=== PATIENT | female | born 1945 | race Caucasian/White ===

== ENCOUNTER 2017-06-19 22:48 | Inpatient (IN) | payer MEDICARE, OTHER ==
[2017-06-19 23:26] LABS: #Basophils 0.1 thou/uL (0.0-0.2); #Eosinphils 0.3 thou/uL (0.0-0.7); #Lymphocytes 1.2 thou/uL (1.20-3.40); #Monocytes 0.8 thou/uL (0.11-0.59); #Neutrophils 7.9 thou/uL (1.40-6.50); %Basophils 0.8 % (0.0-1.0); %Eosinophils 2.6 % (0.0-10.0); %Lymphocytes 11.8 % (21.0-51.0); Hematocrit 38.2 % (36.0-47.0); Mean Platelet Volume 8.5 fL (7.4-10.4); Red Blood Cell (RBC) Count 4.04 mill/uL (4.20-5.40); White Blood Cell (WBC) Count 10.2 thou/uL (4.8-10.8)
--- NOTE | 2017-06-19 23:45 | RAD ---
CHEST ONE VIEW: History: Dyspnea. Comparison: 02-02-14 FINDINGS: Heart size is enlarged. No focal airspace consolidation, pneumothorax, or effusion. Scarring or atele ctasis is present in the lingula. IMPRESSION: Cardiomegaly. Otherwise no acute intrathoracic abnormalities. POS: [facility]
[2017-06-19 23:52] LABS: ALT (SGPT) 9 U/L (8-55); AST (SGOT) 16 U/L (5-34); Alkaline Phosphatase 167 U/L (40-150); Anion Gap 13 mmol/L (10-20); BUN (Urea Nitrogen) 23 mg/dL (9.8-20.1); Bilirubin, Total 1.3 mg/dL (0.2-1.2); CK (CPK) 35 U/L (29-168); Calc. Creatinine Clearance 0 mL/min (70-130); Calcium 9.6 mg/dL (7.8-10.44); Carbon Dioxide 24 mmol/L (23-31); Chloride 107 mmol/L (98-107); Estimated GFR-MDRD 35; Globulin 2.9 g/dL (2.4-3.5)
[2017-06-19 23:56] LABS: Troponin I 0.029 ng/mL (< 0.028)
[2017-06-19 23:59] LABS: Digoxin Less than 0.15 ng/mL (0.8-2.0)
[2017-06-20] MEDS ORDERED: Diltiazem HCl 125 MG, Admixture Fee 1 EACH in Sodium Chloride 0.9% 100 ML SLOW IVP SCH (00:45)
--- NOTE | 2017-06-20 01:56 | PDOC.EVN ---
Event Note - Event Note Event Note: [id number] H&P Dictated 1. AFIB 2. Chf Exacerbation 3. htn 4. CKD plan; see orders
[2017-06-20] MEDS ORDERED: HYDROcodone/Acetaminophen 5/325 mg Tablet PO PRN (01:57)
[2017-06-20] MEDS ORDERED: Ondansetron HCl/PF 4 MG/2 ML Vial IVP PRN (01:57)
[2017-06-20 02:33] LABS: Troponin I 0.033 ng/mL (< 0.028)
[2017-06-20 03:58] VITALS: BMI 27.8
[2017-06-20] MEDS: Benzonatate 100 MG CAP PO PRN ×2 (05:23→17:47)
[2017-06-20] MEDS: Furosemide 40 MG/4 ML VIAL SLOW IVP SCH ×2 (05:23→14:14)
[2017-06-20 05:39] LABS: #Basophils 0.1 thou/uL (0.0-0.2); #Eosinphils 0.2 thou/uL (0.0-0.7); #Lymphocytes 1.5 thou/uL (1.20-3.40); #Monocytes 0.7 thou/uL (0.11-0.59); #Neutrophils 6.4 thou/uL (1.40-6.50); %Basophils 0.8 % (0.0-1.0); %Eosinophils 2.7 % (0.0-10.0); %Lymphocytes 16.4 % (21.0-51.0); %Monocytes 8.2 % (0.0-10.0); Hematocrit 34.9 % (36.0-47.0); Mean Platelet Volume 8.8 fL (7.4-10.4); Red Blood Cell (RBC) Count 3.69 mill/uL (4.20-5.40)
[2017-06-20 05:57] LABS: ALT (SGPT) 9 U/L (8-55); AST (SGOT) 14 U/L (5-34); Alkaline Phosphatase 142 U/L (40-150); Anion Gap 12 mmol/L (10-20); BUN (Urea Nitrogen) 24 mg/dL (9.8-20.1); Bilirubin, Total 0.9 mg/dL (0.2-1.2); Calc. Creatinine Clearance 39 mL/min (70-130); Calcium 9.2 mg/dL (7.8-10.44); Carbon Dioxide 23 mmol/L (23-31); Chloride 109 mmol/L (98-107); Estimated GFR-MDRD 39; Globulin 2.8 g/dL (2.4-3.5); Protein, Total 6.6 g/dL (6.0-8.3)
--- NOTE | 2017-06-20 06:27 | HP ---
DATE OF ADMISSION: 06/19/2017 CHIEF COMPLAINT: Bilateral leg swelling and abdominal swelling and dyspnea. HISTORY OF PRESENT ILLNESS: The patient is a 72-year-old female who started having bilateral worseni ng abdominal swelling for the past last one week. The patient started having dyspnea also, she had s ome chest pain and congestion. The patient complains of chest tightness intermittently and palpitati ons. Symptoms persisted for the past 1 week. Today the dyspnea got worse, dyspnea continued with mi nimal mobilization. The patient said she has to have 2 pillows in the night time to sleep, complains of bilateral leg swelling, complains of chest pain also, spasm, intermittent, mild in intensity, has palpitations. Denies any cough, denies sputum production. Denies any nausea, denies any vomiting. Complains of bilateral lower extremity swelling. Denies any headache. Denies any dizziness. PAST MEDICAL HISTORY: Coronary artery disease, atrial flutter, COPD, hyperlipidemia, hypertension, C KD. PAST SURGICAL HISTORY: Cardiac catheterization, hysterectomy. SOCIAL HISTORY: Denies smoking, denies alcohol use and drugs. FAMILY HISTORY: Denies any heart problems. MEDICATIONS: Reviewed. REVIEW OF SYSTEMS: CONSTITUTIONAL: Denies any fever, denies any chills. EYES: PERRLA . . NECK: Denies any neck pain. CARDIOVASCULAR: Positive for chest pain. Positive for palpitations. RESPIRATORY: Positive for dyspnea, cough, and sputum production. CRANIAL NERVE SYSTEM: Denies syncope, denies stiffness. PSYCHIATRIC: Denies anxiety. MUSCULOSKELETAL: Positive for bilateral lower extremities swelling. INTEGUMENTARY: Denies any rash. All other systems are reviewed and are negative. PHYSICAL EXAMINATION: VITAL SIGNS: At the time of H&P performed blood pressure 88/61, heart rate 78, pulse ox 96%. GENERAL: The patient appears tired. ENT: Ears and nose patent. Nose normal. Ears normal. Teeth intact. Tongue is moist. NECK: Supple, no JVD. CARDIOVASCULAR: S1, S2 present. Irregular rate and rhythm. No murmurs, no rubs, no gallops. LUNGS: No wheezing, no rhonchi. Diminished at the bases. GASTROINTESTINAL: Abdomen is soft, distended, no guarding, no masses, rebound. EXTREMITIES: 2+ pitting edema present. NEUROLOGIC: Cranial nerves intact. Follows commands. Strength intact, sensory intact. PSYCHIATRIC: Mood appropriate at this time. INTEGUMENTARY: Positive for chronic skin changes. LABORATORY: Labs at the time of H&P performed; white count 10.2, hemoglobin 11.8, platelet count is 218. BMP showed sodium 139, potassium 4.7, chloride 107, CO2 24, BUN 26, creatinine 1.46, troponin 0 .029. BNP 1339. TSH 4.17. ASSESSMENT AND PLAN: The patient is 72 years old female. 1. Atrial fibrillation with rapid ventricular response. The patient came to the ER with atrial fib rillation, rapid ventricular response. Heart rate initially was 130s. The heart rate improved at th is time. Currently only on 2.5 mg Cardizem drip. The patient was treated with Cardizem IV push in t he ER. We will go ahead and wean off the Cardizem drip as heart rate is controlled and we will . We will monitor the patient closely. 2. Acute congestive heart failure exacerbation, possible systolic. Plan to check 2D echo. Plan to check cardiac enzymes. Plan to start Lasix as blood pressure improves with IV b.i.d. 3. History of chronic obstructive pulmonary disease. Continue breathing treatments. 4. History of hypertension. Blood pressure is on the low side, we will hold blood pressure medicati ons. 5. History of coronary artery disease. Continue aspirin. 6. History of atrial flutter, continue Xarelto daily. The case was discussed in detail with the patient. CODE STATUS: Patient is full code.
[2017-06-20] MEDS: Famotidine 20 MG TAB PO SCH ×2 (09:11→20:45)
[2017-06-20 12:01] LABS: Troponin I 0.041 ng/mL (< 0.028)
[2017-06-20] MEDS ORDERED: guaiFENesin/Codeine Phosphate 200 mg/20 mg 10 ml UD Cup PO PRN (13:17)
[2017-06-20] MEDS ORDERED: guaiFENesin/Codeine Phosphate 200 mg/20 mg 10 ml UD Cup PO SCH (13:30)
[2017-06-20] MEDS ORDERED: Metolazone 5 MG TAB PO SCH (14:45)
[2017-06-20] MEDS ORDERED: Digoxin 0.5 MG/2 ML AMP SLOW IVP SCH (14:45)
[2017-06-20] MEDS ORDERED: diphenhydrAMINE 25 MG CAP PO PRN (16:23)
[2017-06-20] MEDS ORDERED: Potassium Chloride 20 MEQ TAB PO SCH (17:00)
--- NOTE | 2017-06-20 17:35 | CON ---
DATE OF CONSULTATION: 06/20/2017 TYPE OF CONSULTATION: Cardiology Consultation. REASON FOR CONSULTATION: Congestive heart failure, diastolic, acute on chronic; atrial fibrillation, pulmonary hypertension, and coronary artery disease. HISTORY OF PRESENT ILLNESS: Ms. Pratima Samson is a pleasant 72-year-old patient of Dr. João Cano . The patient has been having increasing amounts of lower extremity swelling and abdominal swelling in the last few weeks, finally worsened to the point where she came here to the emergency room due to severe shortness of breath. She has received diuretics with a modest result. The patient is not having chest pain, but she is very short of breath and very edematous. PAST MEDICAL HISTORY: What appears to pulmonary hypertension. She is being treated for that. She a lso has a history of diastolic heart failure and atrial fibrillation. She has coronary artery diseas e. She underwent heart catheterization relatively recently by Dr. Cano, aortic valve was crossed, it was told that she has only mild aortic stenosis and previous coronary stents, but no other stentin g was indicated per the family's report. The patient's main problem was progressive difficulty breathing. MEDICATIONS: At home included, 1. Metformin. 2. Simvastatin. 3. Insulin. 4. Amaryl. 5. Potassium. 6. Losartan. 7. Digoxin 0.125 mg daily. 8. Carvedilol 6.25 mg twice daily. 9. Aspirin. 10. Torsemide 20 mg a day. 11. Xarelto 15 mg a day. ALLERGIES: SULFA. REVIEW OF SYSTEMS: Constitutional: She has been gaining some weight, but appears to be fluid. Visi on: No changes. Hearing: No changes. Pulmonary: Positive for shortness of breath and cough. Car diac: Positive for shortness of breath. Negative for angina. Gastrointestinal: No nausea, vomitin g, or diarrhea, but she does have abdominal distention. Extremities: She has been noticing increasi ng amounts of swelling of her lower extremities. Psychiatric: No unusual depression or anxiety. PHYSICAL EXAMINATION: GENERAL: This is a very pleasant 72-year-old woman resting comfortably in no distress. VITAL SIGNS: Blood pressure 139/72, pulse is 120, it is irregularly irregular. EYES: Sclerae nonicteric. Mouth mucous membranes moist. NECK: Supple, no lymphadenopathy. LUNGS: Clear anteriorly and laterally. CARDIOVASCULAR: Irregularly irregular. There is a 2-3/6 apical systolic murmur. There is no diasto lic murmur, no S3. ABDOMEN: Soft, nontender. She is somewhat distended. EXTREMITIES: Moderate to severe peripheral edema. SKIN: Warm and dry. PSYCHIATRIC: Mood and affect normal. NEUROLOGIC: Grossly normal. Moves all extremities. PERTINENT LABORATORY AND X-RAY FINDINGS: Hemoglobin is 11.1, hematocrit 34.9, creatinine is 1.34, it was 1.46 on admission. Troponin 0.041. BNP 1339. EKG reveals atrial fibrillation with a rapid carolee tricular response, otherwise no acute changes. The echocardiogram revealed an ejection fraction of 55-60%, moderate pericardial effusion, but no ya ponade. Mild to moderate aortic stenosis, moderate tricuspid insufficiency, severely elevated pulmon isidoro artery pressure, mild mitral regurgitation. ASSESSMENT: 1. Congestive heart failure, diastolic, acute on chronic, currently decompensated. 2. Pulmonary hypertension. 3. Atrial fibrillation, likely to be persistent or chronic with a rapid ventricular response. She i s on Xarelto already. 4. Coronary artery disease, stable. PLAN: 1. We will increase diuretics. She is extremely volume overloaded. 2. Watch her renal function. 3. Give an extra dose of digoxin IV. 4. Resume carvedilol to help with rate control. 5. Continue Xarelto. 6. He also has a nodule in the left lateral breast area, needs to be evaluated. She was instructed to tell the hospitalist doctors about that when they come by in rounds that that needs to be evaluate d.
[2017-06-20] MEDS: Rivaroxaban 10 MG TAB PO SCH (17:37)
--- NOTE | 2017-06-20 17:50 | PDOC.EVN ---
Event Note - Event Note Event Note: pt seen and evaluated agree with current plan
[2017-06-20] MEDS ORDERED: Dextrose 50% Abboject 50 ML SYRINGE SLOW IVP PRN (18:25)
[2017-06-20] MEDS ORDERED: Dextrose 5% in Water 1,000 ML IV PRN (18:25)
[2017-06-20] MEDS: Insulin Detemir 100 UNITS/ML 8 UNITS in Pre-Filled Syringe SC SCH (20:44)
[2017-06-20] MEDS: Atorvastatin Calcium 10 MG TAB PO SCH (20:45)
[2017-06-21 05:40] LABS: Anion Gap 11 mmol/L (10-20); BUN (Urea Nitrogen) 25 mg/dL (9.8-20.1); Calc. Creatinine Clearance 39 mL/min (70-130); Calcium 9.2 mg/dL (7.8-10.44); Carbon Dioxide 25 mmol/L (23-31); Chloride 106 mmol/L (98-107); Estimated GFR-MDRD 39
[2017-06-21] MEDS: Furosemide 40 MG/4 ML VIAL SLOW IVP SCH ×2 (06:10→13:24)
[2017-06-21] MEDS: Aspirin 81 mg Enteric Coated Tablet PO SCH (08:17)
[2017-06-21] MEDS: Famotidine 20 MG TAB PO SCH ×2 (08:17→21:10)
[2017-06-21] MEDS: Digoxin 0.125 MG TAB PO SCH (08:18)
[2017-06-21] MEDS ORDERED: Carvedilol 6.25 MG TAB PO SCH (09:00)
[2017-06-21] MEDS: Acetaminophen 325 MG TAB PO PRN (09:54)
[2017-06-21] MEDS: HumaLOG 300 UNITS/3 ML VIAL SC PRN ×3 (11:23→21:14)
[2017-06-21] MEDS: ALPRAZolam 0.5 MG TAB PO PRN (13:33)
--- NOTE | 2017-06-21 14:26 | PDOC.PN ---
- Subjective Encounter Start Date: 06/21/17 Encounter Start Time: 14:24 Patient seen and examined. No new complaints. No overnight events lt breast nodule which is tender - Objective MAR Reviewed: Yes Vital Signs & Weight: Vital Signs (12 hours) Temp Pulse Resp BP BP Pulse Ox 06/21/17 11:35 97.7 F 89 16 138/73 95 06/21/17 08:18 107 H 163/67 H 06/21/17 08:05 98.4 F 107 H 16 97 06/21/17 07:38 98.4 F 107 H 16 163/67 H 97 06/21/17 04:23 97.4 F L 84 14 98/56 L 97 Weight Weight 142 lb 6.4 oz I&O: 06/20/17 06/21/17 06/22/17 06:59 06:59 06:59 Intake Total 900 Balance 900 Result Diagrams: 06/20/17 05:12 06/21/17 05:11 Additional Labs: Accuchecks 06/21/17 06/21/17 06/20/17 10:54 05:43 20:43 POC Glucose 289 H 116 H 210 H 06/20/17 06/20/17 16:28 11:15 POC Glucose 201 H 212 H Phys Exam - Physical Examination Constitutional: NAD HEENT: PERRLA Neck: no nodes Respiratory: no rales Cardiovascular: no significant murmur, irregular Gastrointestinal: non-tender Musculoskeletal: pulses present, edema present Neurological: moves all 4 limbs Psychiatric: A&O x 3 Dx/Plan (1) Acute on chronic diastolic CHF (congestive heart failure) Code(s): I50.33 - ACUTE ON CHRONIC DIASTOLIC (CONGESTIVE) HEART FAILURE Status : Acute (2) HTN (hypertension) Code(s): I10 - ESSENTIAL (PRIMARY) HYPERTENSION Status: Acute (3) CAD (coronary artery disease) Code(s): I25.10 - ATHSCL HEART DISEASE OF [place] CORONARY ARTERY W/O ANG PCTRS Status: Acute (4) Atrial fibrillation Code(s): I48.91 - UNSPECIFIED ATRIAL FIBRILLATION Status: Acute - Plan * breast mass- f/u us of breast * pedal edema- cont diuretics * f/u card plan
[2017-06-21] MEDS: Rivaroxaban 10 MG TAB PO SCH (17:16)
[2017-06-21] MEDS: Carvedilol 6.25 MG TAB PO SCH (17:17)
[2017-06-21] MEDS: Atorvastatin Calcium 10 MG TAB PO SCH (21:10)
[2017-06-21] MEDS: Insulin Detemir 100 UNITS/ML 8 UNITS in Pre-Filled Syringe SC SCH (21:13)
[2017-06-22] MEDS: ALPRAZolam 0.5 MG TAB PO PRN ×2 (00:38→22:46)
[2017-06-22 05:59] LABS: Anion Gap 12 mmol/L (10-20); BUN (Urea Nitrogen) 32 mg/dL (9.8-20.1); Calc. Creatinine Clearance 40 mL/min (70-130); Carbon Dioxide 26 mmol/L (23-31); Chloride 102 mmol/L (98-107); Estimated GFR-MDRD 34
[2017-06-22] MEDS: Furosemide 40 MG/4 ML VIAL SLOW IVP SCH ×2 (06:24→13:19)
[2017-06-22] MEDS: HumaLOG 300 UNITS/3 ML VIAL SC PRN ×3 (06:24→21:51)
[2017-06-22] MEDS: Aspirin 81 mg Enteric Coated Tablet PO SCH (09:39)
[2017-06-22] MEDS: Carvedilol 6.25 MG TAB PO SCH ×3 (09:39→20:12)
[2017-06-22] MEDS: Digoxin 0.125 MG TAB PO SCH (09:40)
[2017-06-22] MEDS: Famotidine 20 MG TAB PO SCH ×2 (09:40→20:12)
--- NOTE | 2017-06-22 14:57 | PDOC.PN ---
- Subjective Encounter Start Date: 06/22/17 Encounter Start Time: 14:55 Patient seen and examined. No new complaints. No overnight events - Objective MAR Reviewed: Yes Vital Signs & Weight: Vital Signs (12 hours) Temp Pulse Resp BP BP Pulse Ox 06/22/17 11:35 97.5 F L 91 18 107/56 L 97 06/22/17 09:40 85 06/22/17 09:39 149/67 H 06/22/17 08:00 98.2 F 85 20 94 L 06/22/17 07:51 98.2 F 85 20 149/67 H 94 L 06/22/17 04:48 97.4 F L 87 24 H 110/59 L 95 Weight Weight 166 lb 4.8 oz I&O: 06/21/17 06/22/17 06/23/17 06:59 06:59 06:59 Intake Total 900 264 Balance 900 264 Result Diagrams: 06/20/17 05:12 06/22/17 05:13 Additional Labs: Accuchecks 06/22/17 06/22/17 06/21/17 10:37 06:22 21:13 POC Glucose 231 H 201 H 317 H 06/21/17 17:03 POC Glucose 243 H Phys Exam - Physical Examination Constitutional: NAD HEENT: PERRLA Neck: no JVD Respiratory: no wheezing Cardiovascular: no significant murmur Gastrointestinal: non-tender Musculoskeletal: edema present Neurological: moves all 4 limbs Psychiatric: A&O x 3 Dx/Plan (1) Acute on chronic diastolic CHF (congestive heart failure) Code(s): I50.33 - ACUTE ON CHRONIC DIASTOLIC (CONGESTIVE) HEART FAILURE Status : Acute (2) HTN (hypertension) Code(s): I10 - ESSENTIAL (PRIMARY) HYPERTENSION Status: Acute (3) CAD (coronary artery disease) Code(s): I25.10 - ATHSCL HEART DISEASE OF [place] CORONARY ARTERY W/O ANG PCTRS Status: Acute (4) Atrial fibrillation Code(s): I48.91 - UNSPECIFIED ATRIAL FIBRILLATION Status: Acute - Plan * breast mass- out pt work up with mammogram followed by breast us * pedal edema- cont diuretics * f/u card plan
[2017-06-22] MEDS: Rivaroxaban 10 MG TAB PO SCH (16:13)
[2017-06-22] MEDS: Atorvastatin Calcium 10 MG TAB PO SCH (20:12)
[2017-06-22] MEDS: Acetaminophen 325 MG TAB PO PRN (20:34)
[2017-06-22] MEDS: Insulin Detemir 100 UNITS/ML 8 UNITS in Pre-Filled Syringe SC SCH (21:50)
[2017-06-23] MEDS: HumaLOG 300 UNITS/3 ML VIAL SC PRN ×4 (05:28→20:51)
[2017-06-23 06:01] LABS: Anion Gap 14 mmol/L (10-20); BUN (Urea Nitrogen) 35 mg/dL (9.8-20.1); Calc. Creatinine Clearance 33 mL/min (70-130); Calcium 9.1 mg/dL (7.8-10.44); Carbon Dioxide 26 mmol/L (23-31); Chloride 99 mmol/L (98-107); Estimated GFR-MDRD 28
[2017-06-23] MEDS: Digoxin 0.125 MG TAB PO SCH (08:20)
[2017-06-23] MEDS: Aspirin 81 mg Enteric Coated Tablet PO SCH (08:21)
[2017-06-23] MEDS: Acetaminophen 325 MG TAB PO PRN ×2 (08:21→20:55)
[2017-06-23] MEDS: Furosemide 40 MG TAB PO SCH ×2 (08:21→15:46)
[2017-06-23] MEDS: Famotidine 20 MG TAB PO SCH ×2 (08:21→11:56)
[2017-06-23] MEDS: Carvedilol 6.25 MG TAB PO SCH (08:21)
--- NOTE | 2017-06-23 09:22 | PRG ---
DATE OF SERVICE: 06/23/2017 Ms. Samson is not feeling well today. PHYSICAL EXAMINATION: VITAL SIGNS: Blood pressures was low as 106/60 earlier, pulse 56. LUNGS: Clear. CARDIAC: Irregular, irregular. ABDOMEN: Soft, nontender. EXTREMITIES: No edema. ASSESSMENT: 1. Diastolic heart failure, chronic. 2. Atrial fibrillation. 3. Relatively hypotensive today. PLAN: She was ordered to take some diltiazem yesterday, but then that was stopped. She was ordered for carvedilol today, but that was stopped due to hypotension. We will need to watch her at least an other day. It is unclear whether she diuresed much over the weekend, there is not much urine output recorded and the weights do not seem to be reliable.
[2017-06-23] MEDS: Metolazone 2.5 MG TAB PO SCH (15:46)
--- NOTE | 2017-06-23 16:59 | PDOC.PN ---
- Subjective Encounter Start Date: 06/23/17 Encounter Start Time: 16:58 feels more weak no n/v no f/c - Objective MAR Reviewed: Yes Vital Signs & Weight: Vital Signs (12 hours) Temp Pulse Resp BP Pulse Ox 06/23/17 15:33 97.8 F 88 16 99/53 L 99 06/23/17 11:33 97.4 F L 60 16 120/58 L 91 L 06/23/17 08:00 98.4 F 56 L 16 06/23/17 07:33 98.4 F 56 L 16 112/56 L 93 L Weight Weight 163 lb 6.4 oz I&O: 06/22/17 06/23/17 06/24/17 06:59 06:59 06:59 Intake Total 264 620 Balance 264 620 Result Diagrams: 06/20/17 05:12 06/23/17 05:31 Additional Labs: Accuchecks 06/23/17 06/23/17 06/22/17 10:53 05:28 21:43 POC Glucose 406 H 229 H 405 H 06/22/17 17:00 POC Glucose 516 H Phys Exam - Physical Examination Constitutional: NAD HEENT: PERRLA Neck: no JVD Respiratory: no wheezing Cardiovascular: no significant murmur Gastrointestinal: non-tender Musculoskeletal: edema present Neurological: moves all 4 limbs Psychiatric: A&O x 3 Dx/Plan (1) Acute on chronic diastolic CHF (congestive heart failure) Code(s): I50.33 - ACUTE ON CHRONIC DIASTOLIC (CONGESTIVE) HEART FAILURE Status : Acute (2) HTN (hypertension) Code(s): I10 - ESSENTIAL (PRIMARY) HYPERTENSION Status: Acute (3) CAD (coronary artery disease) Code(s): I25.10 - ATHSCL HEART DISEASE OF [place] CORONARY ARTERY W/O ANG PCTRS Status: Acute (4) Atrial fibrillation Code(s): I48.91 - UNSPECIFIED ATRIAL FIBRILLATION Status: Acute - Plan * f/u card plan * cont diuresis
[2017-06-23] MEDS: Rivaroxaban 10 MG TAB PO SCH (18:36)
[2017-06-23] MEDS: Atorvastatin Calcium 10 MG TAB PO SCH (20:47)
[2017-06-23] MEDS: Insulin Detemir 100 UNITS/ML 15 UNITS in Pre-Filled Syringe SC SCH (21:32)
[2017-06-24 05:34] LABS: #Eosinphils 0.4 thou/uL (0.0-0.7); #Lymphocytes 0.9 thou/uL (1.20-3.40); #Monocytes 0.7 thou/uL (0.11-0.59); #Neutrophils 4.9 thou/uL (1.40-6.50); %Basophils 0.4 % (0.0-1.0); %Eosinophils 5.9 % (0.0-10.0); %Lymphocytes 13.1 % (21.0-51.0); Hematocrit 34.3 % (36.0-47.0); Mean Platelet Volume 9.4 fL (7.4-10.4); Red Blood Cell (RBC) Count 3.67 mill/uL (4.20-5.40)
[2017-06-24 05:57] LABS: Anion Gap 15 mmol/L (10-20); BUN (Urea Nitrogen) 35 mg/dL (9.8-20.1); BUN/Creatinine Ratio 20.11; Calc. Creatinine Clearance 35 mL/min (70-130); Calcium 9.2 mg/dL (7.8-10.44); Carbon Dioxide 25 mmol/L (23-31); Chloride 100 mmol/L (98-107); Estimated GFR-MDRD 29; Phosphorus 4.2 mg/dL (2.3-4.7)
[2017-06-24] MEDS: HumaLOG 300 UNITS/3 ML VIAL SC PRN ×3 (06:19→21:46)
[2017-06-24] MEDS: Acetaminophen 325 MG TAB PO PRN (06:50)
[2017-06-24] MEDS: Metolazone 2.5 MG TAB PO SCH (08:51)
[2017-06-24] MEDS: Famotidine 20 MG TAB PO SCH (08:51)
[2017-06-24] MEDS: Digoxin 0.125 MG TAB PO SCH (08:51)
[2017-06-24] MEDS: Aspirin 81 mg Enteric Coated Tablet PO SCH (08:51)
[2017-06-24] MEDS: Furosemide 40 MG TAB PO SCH ×2 (08:51→14:28)
[2017-06-24] MEDS: Glimepiride 2 MG TAB PO SCH (08:51)
[2017-06-24] MEDS ORDERED: Furosemide 40 MG/4 ML VIAL SLOW IVP SCH ×3 (09:30→16:30)
--- NOTE | 2017-06-24 10:07 | PRG ---
DATE OF SERVICE: 06/24/2017 SUBJECTIVE: Ms. Samson is doing about the same, not diuresing much. PHYSICAL EXAMINATION: VITAL SIGNS: Blood pressure 130/60, pulse 80. LUNGS: Clear. CARDIAC: Irregular, irregular. ABDOMEN: Soft and nontender. ASSESSMENT: 1. Pulmonary hypertension appears to be primary problem with severe pulmonary hypertension and right heart overload, chronic. 2. Mild to moderate aortic stenosis. 3. Coronary artery disease. 4. Volume overload. PLAN: 1. Give intravenous Lasix. 2. Resume pulmonary hypertension medications tonight. 3. Probably go home tomorrow on tomorrow and discussed prognosis with the patient and .
--- NOTE | 2017-06-24 10:44 | PDOC.PN ---
- Subjective Encounter Start Date: 06/24/17 Encounter Start Time: 10:43 Patient seen and examined. No new complaints. No overnight events - Objective MAR Reviewed: Yes Vital Signs & Weight: Vital Signs (12 hours) Temp Pulse Resp BP Pulse Ox 06/24/17 08:51 81 06/24/17 08:00 98.3 F 81 16 06/24/17 07:33 98.3 F 81 16 130/61 94 L 06/24/17 03:55 97.7 F 89 20 123/57 L 92 L 06/24/17 00:13 96 06/23/17 23:42 97.6 F 76 16 132/59 L 98 Weight Weight 151 lb 1.6 oz I&O: 06/23/17 06/24/17 06/25/17 06:59 06:59 06:59 Intake Total 620 550 Output Total 0 Balance 620 550 Result Diagrams: 06/24/17 05:18 06/24/17 05:18 Additional Labs: Accuchecks 06/24/17 06/23/17 06/23/17 06:19 20:51 16:49 POC Glucose 224 H 338 H 337 H 06/23/17 10:53 POC Glucose 406 H Phys Exam - Physical Examination Constitutional: NAD HEENT: PERRLA Neck: no JVD Respiratory: no wheezing Cardiovascular: irregular Gastrointestinal: soft Musculoskeletal: edema present Neurological: moves all 4 limbs Psychiatric: A&O x 3 Dx/Plan (1) Acute on chronic diastolic CHF (congestive heart failure) Code(s): I50.33 - ACUTE ON CHRONIC DIASTOLIC (CONGESTIVE) HEART FAILURE Status : Acute (2) HTN (hypertension) Code(s): I10 - ESSENTIAL (PRIMARY) HYPERTENSION Status: Acute (3) CAD (coronary artery disease) Code(s): I25.10 - ATHSCL HEART DISEASE OF [place] CORONARY ARTERY W/O ANG PCTRS Status: Acute (4) Atrial fibrillation Code(s): I48.91 - UNSPECIFIED ATRIAL FIBRILLATION Status: Acute - Plan * start iv lasix * start meds for pulm htn * card input appreciated * doing well with pt
[2017-06-24] MEDS: Insulin Detemir 100 UNITS/ML 15 UNITS in Pre-Filled Syringe SC SCH ×2 (10:53→21:08)
[2017-06-24] MEDS ORDERED: Nitroglycerin 2% Ointment 1 INCH/1 GM Packet TOP SCH (16:00)
[2017-06-24] MEDS: Potassium Chloride 20 MEQ TAB PO SCH (16:19)
[2017-06-24] MEDS: Rivaroxaban 10 MG TAB PO SCH (16:19)
[2017-06-24] MEDS ORDERED: cloNIDine 0.1 MG TAB PO SCH (17:30)
[2017-06-24] MEDS ORDERED: cloNIDine 0.1 MG TAB PO PRN (18:34)
[2017-06-24] MEDS: Atorvastatin Calcium 10 MG TAB PO SCH (21:08)
[2017-06-24] MEDS: TADALAFIL 20MG PO SCH ×2 (22:10→23:48)
[2017-06-24] MEDS: MACITENTAN (OPSUMIT) 10 MG TAB PO SCH ×2 (22:10→23:48)
[2017-06-25 05:42] LABS: Anion Gap 12 mmol/L (10-20); BUN (Urea Nitrogen) 31 mg/dL (9.8-20.1); Calc. Creatinine Clearance 38 mL/min (70-130); Calcium 9.7 mg/dL (7.8-10.44); Carbon Dioxide 35 mmol/L (23-31); Chloride 96 mmol/L (98-107); Estimated GFR-MDRD 34
[2017-06-25] MEDS ORDERED: Losartan Potassium 25 MG TAB PO SCH (09:00)
[2017-06-25] MEDS: Potassium Chloride 20 MEQ TAB PO SCH (09:40)
[2017-06-25] MEDS: Glimepiride 2 MG TAB PO SCH (09:40)
[2017-06-25] MEDS: Metolazone 2.5 MG TAB PO SCH (09:41)
[2017-06-25] MEDS: Digoxin 0.125 MG TAB PO SCH (09:41)
[2017-06-25] MEDS: Furosemide 40 MG TAB PO SCH (09:42)
[2017-06-25] MEDS: Insulin Detemir 100 UNITS/ML 15 UNITS in Pre-Filled Syringe SC SCH (09:42)
[2017-06-25] MEDS: Aspirin 81 mg Enteric Coated Tablet PO SCH (09:44)
[2017-06-25] MEDS ORDERED: Potassium Chloride 20 MEQ TAB PO SCH (10:30)
[2017-06-25 11:46] VITALS: BP 120/55; TEMP 97.8
--- NOTE | 2017-06-25 12:30 | PRG ---
DATE OF SERVICE: 06/25/2017 SUBJECTIVE: Ms. Samson feels better today. She had an excellent response to the intravenous Lasix last night. Her blood pressure was high, but now back to the normal range after good diuresis. She has no chest pain. PHYSICAL EXAMINATION: VITAL SIGNS: Blood pressure 133/63, pulse 70, it is irregular. LUNGS: Clear. CARDIAC: Irregularly irregular. ABDOMEN: Soft, nontender. EXTREMITIES: No edema. The creatinine is 1.52 which came in at 1.46. ASSESSMENT: 1. Pulmonary hypertension, which is her primary problem. 2. Coronary artery disease, apparently nonobstructive per the patient's report underwent cardiac cat heterization by Dr. oJão Cano. 3. Mild to moderate aortic stenosis. 4. Stage 3 renal failure, estimated GFR is 34. 5. Hypokalemia after diuretic receiving potassium. PLAN: 1. She is to come on torsemide 20 mg twice a day, which the dose has been increased. 2. Potassium 10 mEq once a day and she did come in potassium of 4.7 before the diuresis. 3. Losartan 100 mg as before, same pulmonary hypertension medicine. 4. Xarelto 15 mg a day. 5. She also has chronic atrial fibrillation. 6. She has a pericardial effusion, but is not hemodynamically significant. The patient will be foll owed up with Dr. João Cano as an outpatient. She also did have a mass palpable in the left lateral area of her breast, I recommended she have a mammography done. I recommend she is follow up with he r primary care physician and to have this mammogram done. 7. She returned under the care of Dr. João Cano, who is her primary store receiver.
--- NOTE | 2017-06-25 12:37 | PDOC.PN ---
- Subjective Encounter Start Date: 06/25/17 Encounter Start Time: 12:36 Patient seen and examined. No new complaints. No overnight events - Objective MAR Reviewed: Yes Vital Signs & Weight: Vital Signs (12 hours) Temp Pulse Resp BP Pulse Ox 06/25/17 11:30 97.8 F 75 18 120/55 L 100 06/25/17 09:41 70 06/25/17 08:00 98.5 F 70 18 06/25/17 07:35 98.5 F 70 18 133/63 98 06/25/17 03:26 98.7 F 72 18 120/56 L 99 06/25/17 01:57 99 Weight Weight 142 lb 5 oz I&O: 06/24/17 06/25/17 06/26/17 06:59 06:59 06:59 Intake Total 550 1630 Output Total 0 4950 Balance 550 -3320 Result Diagrams: 06/24/17 05:18 06/25/17 04:54 Additional Labs: Accuchecks 06/25/17 06/25/17 06/24/17 11:00 05:34 21:04 POC Glucose 208 H 152 H 350 H 06/24/17 06/24/17 16:50 14:33 POC Glucose 153 H 260 H Phys Exam - Physical Examination Constitutional: NAD HEENT: PERRLA Neck: no JVD Respiratory: no wheezing Cardiovascular: no significant murmur Gastrointestinal: non-tender Musculoskeletal: pulses present Neurological: moves all 4 limbs Psychiatric: A&O x 3 Dx/Plan (1) Acute on chronic diastolic CHF (congestive heart failure) Code(s): I50.33 - ACUTE ON CHRONIC DIASTOLIC (CONGESTIVE) HEART FAILURE Status : Acute (2) HTN (hypertension) Code(s): I10 - ESSENTIAL (PRIMARY) HYPERTENSION Status: Acute (3) CAD (coronary artery disease) Code(s): I25.10 - ATHSCL HEART DISEASE OF [place] CORONARY ARTERY W/O ANG PCTRS Status: Acute (4) Atrial fibrillation Code(s): I48.91 - UNSPECIFIED ATRIAL FIBRILLATION Status: Acute - Plan * doing well * torsemide 20 mg bid * out pt f/u with card
--- NOTE | 2017-06-25 13:26 | DIS ---
DATE OF ADMISSION: 06/19/2017 DATE OF DISCHARGE: 06/25/2017 DISCHARGE DIAGNOSES: Bilateral leg swelling secondary to acute on chronic diastolic congestive heart failure with an ejection fraction of 55%; essential primary hypertension; atrial fibrillation, rate controlled and anticoagulated with Xarelto; history of chronic obstructive pulmonary disease; history of hypertension and coronary artery disease. DISCHARGE MEDICATIONS: Include all home medications except for the dose of torsemide has been change d to 20 mg p.o. b.i.d., dose of Cozaar has been changed to 25 mg p.o. daily from 100 mg p.o. daily an d dose of Coreg has been changed to 3.125 p.o. b.i.d. from 6.25 p.o. b.i.d. The rest of the medicatio ns remain the same. DISTRICT DIRECTOR: Dr. Kinsey. BRIEF HOSPITAL COURSE: This is a 72-year-old pleasant lady who came into the hospital with bilateral leg swelling. Please refer to the admitting physician's H&P for further details. Cardiology was co nsulted. The patient was found to be in acute on chronic diastolic congestive heart failure. It was treated initially with IV diuresis. She diuresed well. The edema was resolving slowly. We did the echocardiogram, which showed severe pulmonary hypertension as well. Dr. Kinsey thought that most of the swelling was secondary to the pulmonary hypertension and he restarted the medications for that. The patient is doing much better right now. She is medically stable to be discharged with outpatien t follow up with our double end production grinder. Of note, the patient had a breast mass on the left side, possibly secondary to which came after trauma when she fell is a little tender outpatient mammogram has being advised for that. She is asked to schedule outpatient mammogram and possible breast ultrasound in [facility] if needed, and choose PCP and follow up with them for further optimization of treatment. The pat ient is right now medically stable. Her shortness of breath has resolved. Edema has improved. AFib is under control. She is medically stable to be discharged with outpatient followup with Cardiology . Total time for this discharge took 35 minutes.
[2017-06-25] MEDS ORDERED: Torsemide 20 MG TAB PO SCH (14:00)
[2017-06-25] MEDS ORDERED: Carvedilol 3.125 MG TAB PO SCH (17:00)
[2017-06-26] MEDS ORDERED: Potassium Chloride 20 MEQ TAB PO SCH (08:00)
== END 2017-06-25 13:31 | disposition home or self-care (01) | DRG 291 ==
LOC: ERS 22:48 → 2SE 06-20 00:35
PROVIDERS: ADMIT Internal Medicine; ATTEND Internal Medicine
DX: I13.0 Hypertensive heart and chronic kidney disease with heart failure and stage 1 through stage 4 chronic kidney disease, or unspecified chronic kidney disease (principal); I50.33 Acute on chronic diastolic (congestive) heart failure; I95.9 Hypotension, unspecified; I31.3 Pericardial effusion (noninflammatory); E11.22 Type 2 diabetes mellitus with diabetic chronic kidney disease; I48.92 Unspecified atrial flutter; I48.2 Chronic atrial fibrillation; J44.9 Chronic obstructive pulmonary disease, unspecified; I08.3 Combined rheumatic disorders of mitral, aortic and tricuspid valves; I27.20 Pulmonary hypertension, unspecified; Z90.710 Acquired absence of both cervix and uterus; I25.10 Atherosclerotic heart disease of native coronary artery without angina pectoris; Z79.01 Long term (current) use of anticoagulants; N18.3 Chronic kidney disease, stage 3 (moderate); E87.6 Hypokalemia; N63.20 Unspecified lump in the left breast, unspecified quadrant; Z88.2 Allergy status to sulfonamides; I25.2 Old myocardial infarction; Z79.4 Long term (current) use of insulin
CPT/HCPCS: 36415; 36416; 71010; 80048; 80053; 80069; 80162; 82550; 82553; 83690; 83735; 83880; 84443; 84484; 85025; 93005; 93306; 93798; 96374; 96376; A4216; J1160; J1815; J1940; J7050

== ENCOUNTER 2017-06-29 08:18 | Inpatient (IN) | payer MEDICARE, OTHER ==
[2017-06-29 08:50] LABS: #Basophils 0.1 thou/uL (0.0-0.2); #Lymphocytes 1.5 thou/uL (1.20-3.40); #Monocytes 0.4 thou/uL (0.11-0.59); #Neutrophils 14.5 thou/uL (1.40-6.50); %Basophils 0.5 % (0.0-1.0); %Eosinophils 0.3 % (0.0-10.0); %Lymphocytes 9.2 % (21.0-51.0); %Monocytes 2.3 % (0.0-10.0); %Neutrophils 87.7 % (42.0-75.0); Hemoglobin 13.3 g/dL (12.0-16.0); Mean Corpuscular HGB CONC 30.5 g/dL (32.0-36.0); Platelet Count 281 thou/uL (130-400); RBC Distribution Width 15.3 % (11.5-14.5); White Blood Cell (WBC) Count 16.5 thou/uL (4.8-10.8)
[2017-06-29 09:10] LABS: ALT (SGPT) 14 U/L (8-55); AST (SGOT) 20 U/L (5-34); Albumin 4.1 g/dL (3.4-4.8); Alkaline Phosphatase 120 U/L (40-150); Anion Gap 39 mmol/L (10-20); BUN (Urea Nitrogen) 67 mg/dL (9.8-20.1); Bilirubin, Total 0.8 mg/dL (0.2-1.2); Calc. Creatinine Clearance 0 mL/min (70-130); Calcium 9.6 mg/dL (7.8-10.44); Carbon Dioxide 13 mmol/L (23-31); Chloride 92 mmol/L (98-107); Estimated GFR-MDRD 6; Globulin 3.3 g/dL (2.4-3.5); Glucose 174 mg/dL (83-110); Protein, Total 7.4 g/dL (6.0-8.3); Sodium 137 mmol/L (136-145)
[2017-06-29 09:15] LABS: CKMB 3.6 ng/mL (0-6.6); Troponin I 0.083 ng/mL (< 0.028)
[2017-06-29] MEDS ORDERED: Albuterol Sulfate 2.5 mg/0.5 ml Neb ONE (09:33)
[2017-06-29] MEDS ORDERED: Albuterol Sulfate 2.5 mg/3 ml Neb ONE (09:34)
[2017-06-29] MEDS ORDERED: Dextrose 50% Abboject 50 ML SYRINGE ONE (09:45)
[2017-06-29] MEDS ORDERED: Insulin Regular 300 UNITS/3 ML VIAL ONE (09:45)
[2017-06-29] MEDS ORDERED: Sodium Bicarb 50 MEQ/50 ML Abboject 8.4% SYRINGE ONE (09:45)
[2017-06-29] MEDS ORDERED: Calcium Chloride 1 GM/10 ML Abboject SYRINGE ONE (09:45)
[2017-06-29] MEDS ORDERED: Ondansetron HCl/PF 4 MG/2 ML Vial ONE (09:46)
[2017-06-29 10:13] LABS: Magnesium 2.5 mg/dL (1.6-2.6)
[2017-06-29 10:20] LABS: Lipase 31 U/L (8-78)
[2017-06-29 10:28] LABS: Phosphorus 9.4 mg/dL (2.3-4.7)
[2017-06-29] MEDS ORDERED: Heparin 1,000 UNITS/ML VIAL ONE (11:11)
[2017-06-29] MEDS ORDERED: Piperacillin/Tazobactam 3.375 GM in Sodium Chloride 0.9% 100 ML IVPB SCH (11:15)
[2017-06-29 11:38] LABS: INR-International Normal Ratio 3.2; PTT 55.9 SEC (22.9-36.1); Prothrombin Time 34.4 SEC (12.0-14.7)
[2017-06-29] MEDS ORDERED: Hydrocortisone Sod Succ/PF 100 mg/2 ml Vial ONE (12:09)
[2017-06-29] MEDS ORDERED: Sodium Bicarbonate 150 MEQ in Dextrose 5% in Water 1,000 ML IV SCH ×2 (12:15)
[2017-06-29] MEDS ORDERED: Dextrose 5% in Water 1,000 ML IV PRN (12:23)
[2017-06-29] MEDS ORDERED: Guaifenesin DM 100-10/5 ML UDCUP PO PRN (12:23)
[2017-06-29] MEDS ORDERED: Vancomycin HCl 500 MG in Sodium Chloride 0.9% 100 ML IVPB SCH (12:30)
--- NOTE | 2017-06-29 12:45 | RAD ---
FRONTAL VIEW CHEST: Date: 06/29/17 INDICATION: Dyspnea. FINDINGS: There is prominence of the cardiac silhouette, grossly stable. No new consolidation or effusion. Ther e is no discrete pneumothorax. Vascular calcinations and osseous degenerative change present. IMPRESSION: 1. Stable prominence of cardiac silhouette. 2. No new consolidation. POS: [facility]
[2017-06-29 13:03] LABS: Digoxin 1.53 ng/mL (0.8-2.0)
[2017-06-29 13:04] LABS: Albumin 3.6 g/dL (3.4-4.8); Anion Gap 39 mmol/L (10-20); BUN (Urea Nitrogen) 68 mg/dL (9.8-20.1); Calc. Creatinine Clearance 0 mL/min (70-130); Calcium 10.1 mg/dL (7.8-10.44); Chloride 99 mmol/L (98-107); Estimated GFR-MDRD 6; Glucose 93 mg/dL (83-110); Sodium 141 mmol/L (136-145)
[2017-06-29 13:12] LABS: Carbon Dioxide 9 mmol/L (23-31); Phosphorus 9.5 mg/dL (2.3-4.7)
[2017-06-29 14:02] LABS: Bilirubin Negative (Negative); Blood, Urine Moderate (Negative); Glucose, Urine (Dipstick) Negative (Negative); Leukocyte Large (Negative); Nitrite Negative (Negative); Protein, Urine (Dipstick) 30 mg/dL (Neg-Trace); Specific Gravity, Urine 1.015 (1.005-1.030); Urobilinogen 0.2 mg/dL (0.2-1.0)
[2017-06-29 14:05] LABS: Clarity CLOUDY (Clear)
[2017-06-29 14:07] LABS: Bacteria/HPF 4+ HPF (None Seen); Hyaline Casts/LPF 0-3 HYALINE CAST LPF (0-3 Hyaline)
[2017-06-29] MEDS: Sodium Bicarbonate 150 MEQ in Dextrose 5% in Water 1,000 ML IV SCH ×6 (14:38→15:41)
--- NOTE | 2017-06-29 14:40 | ULT ---
BILATERAL RENAL ULTRASOUND: Date: 06/29/17 HISTORY: Acute kidney insufficiency. COMPARISON: None. TECHNIQUE: Utilizing a multihertz transducer, sagittal and transverse imaging of kidneys performed. FINDINGS: There is a hyperechoic focus within the mid portion of the left kidney measuring 0.9 cm, compatible w ith a small, nonobstructing calculus. Incompletely evaluated 0.9 x 0.8 x 0.8 cm hypoechoic focus. Thi s focus is noted in the mid portion of the left kidney. Left kidney measures 11.0 x 6.5 x 4.8 cm. Right kidney measures 10.2 x 5.0 x 5.4 cm. No hydronephrosis, bilaterally. Urinary bladder is decompressed due to Teixeira catheterization. IMPRESSION: 1. Nonobstructing calculus in the left kidney. Possible left renal cyst, subcentimeter in size. Limi rosendo evaluation. 2. No hydronephrosis. POS: [facility]
[2017-06-29] MEDS: cefTRIAXone\\ROCEPHIN 2 GM in Sodium Chloride 0.9% 100 ML IVPB SCH (14:41)
[2017-06-29 14:52] LABS: Lactic Acid 17.7 mmol/L (0.5-2.2)
--- NOTE | 2017-06-29 15:46 | CON ---
DATE OF CONSULTATION: 06/29/2017 SERVICE: Pulmonary Medicine. REASON FOR CONSULTATION: ICU patient. HISTORY OF PRESENT ILLNESS: The patient is a 72-year-old white female with past medical history significant for volume overloaded state. She was recently discharged from the hospital on some Lasix. Unfortunately, roughly 3 days ago, she started having some nausea and vomiting. She was not able to keep anything down. She also had a viral prodrome. She is having some low grade fevers. She presented back to the hospital and was discovered to have elevated creatinine with a potassium that was elevated. Her BUN was also high. As a result, she was stuck into the ICU for close monitoring. She currently indicates that she is feeling much improved. She is no longer cold as she was previously. PAST MEDICAL HISTORY: 1. Atrial fibrillation with recent history of RVR. 2. Coronary artery disease. 3. COPD. 4. Dyslipidemia. 5. Hypertension. 6. Chronic kidney disease. PAST SURGICAL HISTORY: 1. Cardiac catheterization. 2. Hysterectomy. SOCIAL HISTORY: Negative for alcohol, tobacco or illicit drug use. She has no exposure to chemicals, dust, asbestos or tuberculosis. FAMILY HISTORY: Noncontributory. ALLERGIES: SULFAMETHOXAZOLE and TRIMETHOPRIM. MEDICATIONS LIST: Inpatient medications were reviewed. No updates were made. REVIEW OF SYSTEMS: General, head, ears, eyes, nose, throat, cardiovascular, respiratory, musculoskeletal, neurologic, and skin is negative except as mentioned in the HPI. PHYSICAL EXAMINATION: VITAL SIGNS: Afebrile, pulse 75, blood pressure 120/55, respirations 18, saturation 100% on 2 liters nasal cannula. GENERAL: The patient is awake, alert, in no apparent distress. LUNGS: Excellent air entry. No prolonged expiratory phase. There is a prolonged expiratory phase. There is some wheezing and rhonchi that clear with cough. No crackles. HEART: Normal rate, regular. ABDOMEN: Soft, nontender, nondistended, bowel sounds positive. MUSCULOSKELETAL: No cyanosis or clubbing. There is no pitting throughout. There is tenting throughout; however. GENITOURINARY: Teixeira catheter in place. NEUROLOGIC: Grossly nonfocal. LABORATORY DATA: WBC 16.5, hemoglobin 13.3, platelets 281,000. INR 2.2. Creatinine is down trending to 6.8 (baseline from 4 days ago was 1.52). BUN 68 , anion gap 39, bicarbonate 9, chloride 99, potassium 6.0, which is also down trending. Sodium 141. Phosphorus is 9.5, calcium 10.1. Lactate is down trending to 17.7. Troponin is 0.08. Liver function studies are essentially unremarkable. WBC count is greater than 50. Beta hydroxybutyric acid 2.07, which is down trending. IMAGING: Renal ultrasound demonstrates no evidence of hydronephrosis. Possible left renal cyst. Chest x-ray demonstrates hyperexpanded lung pittman bilaterally, but otherwise, no acute cardiopulmonary abnormality. Cardiac silhouette is generous. Recent echocardiogram demonstrates normal ejection fraction. She got right ventricular volume overload in a moderately enlarged right ventricular cavity. This was in the setting of severely volume overloaded patient. ASSESSMENT: 1. Hypovolemic shock. 2. Acute kidney injury secondary to severe dehydration. 3. Hyperkalemia. 4. Combined anion gap and non-anion gap metabolic acidosis. 5. Chronic obstructive pulmonary disease with possible acute exacerbation. 6. Atrial fibrillation with reflex tachycardia most likely. 7. Systemic inflammatory response syndrome. PLAN: We will continue our efforts at hydrating the patient. After her extravascular volume has been replaced, we will switch fluids over to half normal saline and run them at roughly 100 an hour to tank up her intracellular space. Hopefully, all of this other stuff will melt away. I will give her nebulized medications, antibiotics and steroids directed at COPD exacerbation as she is very likely to develop one over the next 24-48 hours with all the severe fluid shifts that we will be dealing with. We will continue to trend her lactates to make certain that they clear. Pulmonary Critical Care will continue to follow very closely. It is very reassuring that her potassium is already down trending. MTDD
[2017-06-29] MEDS ORDERED: Acetaminophen 1,000 MG in Premix Bag 1 BAG IVPB SCH (16:15)
[2017-06-29] MEDS ORDERED: Carvedilol 3.125 MG TAB PO SCH (17:00)
--- NOTE | 2017-06-29 17:07 | HP ---
REASON FOR ADMISSION: Severe hypovolemic shock, acute renal failure, hyperkalemia, possible sepsis, metabolic acidosis, and urinary tract infection. HISTORY OF PRESENTING ILLNESS: Please note majority of this history is obtained by my talking to patient's boyfriend of 13 years who lives with her. ER physician, prior medical records, and patient to some extent as she is lethargic. Per boyfriend, patient was vomiting from yesterday evening. They have gone to dine at [employer]. She vomited twice yesterday evening. This morning, she was moaning and groaning and was not focused. She was declining to even drink. Then, she became very lethargic and unresponsive. EMS was summoned. When EMS arrived, patient's glucose was 36. She was given an amp of D50 and was brought to emergency room. Here in the ER, the patient's systolic blood pressure was 70/60. She was given 3 liters of normal saline boluses. Her creatinine was 7 with potassium of 7 on arrival. She was recently discharged 4 days back on Friday after being here for CHF exacerbation. She is on torsemide 20 mg twice daily and Cozaar 25 mg daily. Her echo revealed ejection fraction of around 55% with diastolic dysfunction. The patient is also on Xarelto for atrial fibrillation. PAST MEDICAL AND SURGICAL HISTORY: History of chronic atrial fibrillation, on Xarelto; history of CHF with diastolic dysfunction; COPD; dyslipidemia; coronary artery disease; prior catheterization; hysterectomy; hypertension; chronic kidney disease stage 2; diabetes mellitus type 2; prior stent to right coronary artery; hysterectomy; bilateral cataract surgery; and pulmonary hypertension. PERSONAL HISTORY: Does not abuse alcohol or drugs. She quit smoking 20 years ago. Prior to that smoked half pack a day for 20 years. The patient is a retired teacher. FAMILY HISTORY: Both parents are . Mother had history of diabetes and osteoarthritis. Father of stroke. Has a sister with seizure disorder. ALLERGIES: Allergic to SULFA and MACROBID. CURRENT MEDICATIONS: Aspirin 81 mg p.o. daily, Coreg 3.125 mg p.o. twice daily , Symbicort inhaler twice daily, digoxin 0.125 mg p.o. daily, gabapentin 100 mg p.o. at bedtime, Amaryl 2 mg p.o. daily, Humalog sliding scale, Levemir 30 units subcu at bedtime, losartan 25 mg p.o. daily, Opsumit 10 mg p.o. at bedtime , metformin 1000 mg p.o. twice daily, potassium chloride 10 mEq p.o. daily, Xarelto 15 mg p.o. daily, Zocor 10 mg p.o. at bedtime, tadalafil 20 mg p.o. at bedtime, torsemide 20 mg p.o. twice daily. REVIEW OF SYSTEMS: The following complete review of systems was negative, unless otherwise mentioned in the HPI or below: Constitutional: Weight loss or gain, ability to conduct usual activities. Skin: Rash, itching. Eyes: Double vision, pain. ENT/Mouth: Nose bleeding, neck stiffness, pain, tenderness. Cardiovascular: Palpitations, dyspnea on exertion, orthopnea. Respiratory: Shortness of breath, wheezing, cough, hemoptysis, fever or night sweats. Gastrointestinal: Poor appetite, abdominal pain, heartburn, nausea, vomiting, constipation, or diarrhea. Genitourinary: Urgency, frequency, dysuria, nocturia. Musculoskeletal: Pain, swelling. Neurologic/Psychiatric: Anxiety, depression. Allergy/Immunologic: Skin rash, bleeding tendency. PHYSICAL EXAMINATION: GENERAL: The patient is a 72-year-old female who is currently not in any acute distress. VITAL SIGNS: Blood pressure 86/70, pulse 110 per minute, respiratory rate 28 on arrival, saturating 98% on room air, and temperature is 91.4 degrees rectal. NECK: Supple, no elevated JVD. EYES: Extraocular muscles intact. Pupils reacting to light. ORAL CAVITY: Mucous membranes are dry. No exudates or congestion. CARDIOVASCULAR SYSTEM: S1, S2 heard. Murmur plus in the left sternal border. Irregular rhythm. RESPIRATORY SYSTEM: Air entry 1+ bilaterally. No rales or rhonchi. ABDOMEN: Soft and bowel sounds heard. No tenderness, rigidity or guarding. EXTREMITIES: Mild peripheral edema, no calf tenderness. VASCULAR SYSTEM: Peripheral pulses 1+ bilateral. No ischemic ulcerations or gangrene. CENTRAL NERVOUS SYSTEM: No gross focal deficits seen. Patient is lethargic, but oriented well. PSYCHIATRIC SYSTEM: The patient's mood is euthymic. No hallucinations or delusions. LABORATORY DATA AND X-RAY FINDINGS: White count of 16, hemoglobin and hematocrit 13 and 43, platelet count is 281 with 87% neutrophils, MCV is 95. PT /INR 34/3.2, PTT is 55. Sodium 137, potassium 7.0, chloride 92, serum bicarbonate 13, BUN 67, creatinine 7.0, glucose 174 on arrival here. Lactic acid 16.5, phosphorus was 9.4, magnesium 2.5. Liver enzymes within normal limits. CK-MB 3.6, troponin I is indeterminate at 0.08. Albumin is 4.1. Cortisol is 70 with random, lipase is 31. UA is positive for UTI. Beta hydroxybutyrate is 2.0. Digoxin levels are 1.53. Chest x-ray shows no acute infiltrate. Renal ultrasound done showed nonobstructing calculus in the left kidney, no hydronephrosis was seen. EKG done shows atrial fibrillation at 97 beats per minute. There is ST depression seen in II, III, aVF and V4, V5, V6 leads. CLINICAL IMPRESSION AND PLAN: The patient will be admitted to ICU for severe hypovolemic shock, acute renal failure, hyperkalemia, metabolic acidosis, possible sepsis. The patient most likely has had acute renal failure due to her nausea and vomiting episodes plus 3 episodes of watery diarrhea day before in addition to her current medications. She was also recently diuresed for lower extremity edema with congestive heart failure and diastolic dysfunction. In view of this, she will be gently hydrated. Please note, patient also has moderate aortic stenosis on the recently done echo. Maxwell cultures have been obtained in the ER. She will be placed on ceftriaxone and vancomycin based on renal function. She will be on D5 water with sodium bicarbonate. Her fingerstick glucose will be closely monitored due to her current IV fluid. I have consulted Dr. Oliver for Pulmonary and Critical Care and Dr. Estrada. Please note patient has hyperkalemia and her digoxin levels are 1.5, most likely with correction of her potassium, her digoxin levels might go up. She will be closely monitored for possible digoxin toxicity. We will continue her on aspirin and small dose of Coreg. She is currently on Levaquin. She will be placed on Levophed for pressure support and renal perfusion. After placing Teixeira, there was absolutely no urine in the collecting bag. She is completely anuric at present and she will be closely monitored with hourly Teixeira output. CODE STATUS: FULL. MTDD
[2017-06-29] MEDS: Ondansetron HCl/PF 4 MG/2 ML Vial IVP PRN ×2 (17:17→23:25)
[2017-06-29 17:38] LABS: Actual Bicarbonate (HCO3a) 10.1 mEq/L (22-26); Base Excess (BEa) -16.1 mEq/L (0 (+/-) 2.5); CO2 Tension 25.6 mmHg (35.0-45.0); Hematocrit-ABG 39.3 % (36.0-47.0); Hemoglobin (Hb) 11.5 g/dL (12.0-16.0); O2 Tension (PaO2) 106.1 mmHg (80.0-100.0); pH, Arterial 7.21 (7.35-7.45)
[2017-06-29 17:39] LABS: Puncture Site RBA
[2017-06-29] MEDS: Mometasone/Formoterol 120 PUFF INHALER INH SCH (18:37)
[2017-06-29 19:16] LABS: Lactic Acid 21.9 mmol/L (0.5-2.2)
[2017-06-29 19:38] LABS: Hep B Surf Ag Non-Reactive S/CO (NonReactive)
[2017-06-29] MEDS: Simvastatin 5 MG TAB PO SCH (20:46)
[2017-06-29] MEDS: Heparin 5,000 UNITS/ML VIAL SC SCH (20:46)
--- NOTE | 2017-06-29 21:25 | OP ---
SURGEON: Cleopatra Quijano M.D. PROCEDURE: Right femoral dialysis catheter placement with ultrasound guidance. MEDICATION: 2% lidocaine. COMPLICATIONS: None. BLOOD LOSS: Minimal. DETAILS OF PROCEDURE: After informed consent was obtained, the patient was prepped and draped in a s terile fashion. The right femoral vein was approached in layers under real time ultrasound guidance. Serial dilatation done and a Trialysis catheter was secured over the wire with significant blood lo ss. The patient tolerated the procedure very well with no immediate postoperative complications. Li ne is good for use for dialysis.
[2017-06-29] MEDS ORDERED: guaiFENesin ER 600 MG TAB PO SCH (22:00)
[2017-06-29] MEDS: Acetaminophen 325 MG TAB PO PRN (22:38)
[2017-06-29] MEDS ORDERED: diphenhydrAMINE 25 MG CAP PO SCH (23:45)
[2017-06-29] MEDS ORDERED: diphenhydrAMINE 12.5 MG/5 ML UDCUP PO SCH (23:45)
--- NOTE | 2017-06-30 00:09 | CON ---
DATE OF CONSULTATION: 06/29/2017 REASON FOR CONSULTATION: Abnormal EKG. HISTORY OF PRESENT ILLNESS: Ms. Samson is a 72-year-old black female that comes to the hospital for altered mentation. This morning, she was altered, EMS was called and she was found to have a glucose of 36. She was given 1 amp of D50 en route and she was brought in for evaluation. I spoke with Ms. Samson and her , who was in the room on my evaluation and he tells me that she was recently d ischarged from the hospital after having been treated for diastolic dysfunction. She has significant pulmonary hypertension as well. She was discharged 4 days ago, given some Lasix that she was taking twice a day. For the last 3 days, she has been having cough eventually, had a sore throat and last 2 days she has been vomiting and having several bouts of diarrhea. On arrival was found to have a po tassium of 7 and a creatinine of 7 from a baseline of 1.4-1.6 just a week ago, so she was admitted. Nephrology is planning on doing an emergent dialysis later today as most of the interventions have ma naged to get her potassium from 7-6. An EKG was drawn and she had ST depressions, so Cardiology has been consulted for this. She does have a history of coronary artery disease; however, she has not ayala d any chest pains. She only has a little discomfort when she has been dry heaving and vomiting. She also has chronic atrial fibrillation and is currently in rapid ventricular response. PAST MEDICAL HISTORY: 1. Pulmonary hypertension. 2. Diastolic heart failure. 3. Chronic atrial fibrillation. 4. Coronary artery disease. 5. Mild aortic valve stenosis. OUTPATIENT MEDICATIONS: Were reviewed on most recent discharge and include: 1. Carvedilol 3.125 mg b.i.d. 2. Losartan 100 mg a day. 3. Torsemide 20 mg b.i.d. 4. Metformin 1000 mg twice a day. 5. Simvastatin 10 mg a day. 6. Insulin detemir. 7. Glimepiride 2 mg a day. 8. Symbicort. 9. Potassium chloride 10 mg a day. 10. Gabapentin 100 mg a day. 11. Macitentan. 12. Levocetirizine. 13. Digoxin 0.125 mg daily. 14. Tadalafil 20 mg a day. 15. Aspirin 81 a day. 16. Humalog p.r.n. 17. Xarelto 50 mg a day. ALLERGIES: SULFA DRUGS. PAST SURGICAL HISTORY: 1. Cardiac catheterization with stent placement in the past. 2. Hysterectomy. SOCIAL HISTORY: No alcohol, tobacco or drugs. FAMILY HISTORY: Noncontributory. REVIEW OF SYSTEMS: A 12-point review of systems was done and is all negative unless stated in the hi story of present illness. PHYSICAL EXAMINATION: VITAL SIGNS: Temperature 96.8, pulse 123, respiratory rate 25, satting 92% on 4 L nasal cannula, blo od pressure 91/50. GENERAL: Awake, alert, oriented x3. HEENT: Normocephalic, atraumatic. NECK: Supple. LUNGS: Reduced breath sounds. CARDIOVASCULAR: S1, S2. No S3, S4. Irregularly irregular. Heart rate in the 130s. ABDOMEN: Soft. EXTREMITIES: Trace edema. SKIN: Warm and dry. LABORATORY WORK: Reviewed. CBC with a white count of 16, hemoglobin of 13, hematocrit of 43, platel et count of 281. Coags with a PT of 34, INR of 3.2, PTT of 55. Chemistries on initial evaluation, s odium of 137, potassium of 7.0, chloride of 92, carbon dioxide of 13, anion gap of 39, BUN of 67, cre atinine 7.01. GFR was 6, glucose of 209. Lactic acid was 16.5 on admission, went up actually to 18. 5, calcium of 9.6, phosphorus of 9.4, magnesium of 2.5. Total bilirubin, AST, ALT, and alkaline phos phatase are normal. CK-MB of 3.6, troponin I of 0.08, albumin of 4.1, lipase of 31. Cortisol was 70 . Potassium is down now to 6.0 with anion gap of 39 and creatinine is 6.80. UA was colorless and cl oudy with 30 protein, moderate blood, large leukocyte esterase, 4-6 squamous epithelial cells and 4+ bacteria and toxicology shows a digoxin level of 1.53 and beta hydroxybutyrate of 2.07, which is high . EKG shows atrial fibrillation with ST depression suggestive of global ischemia. Chest x-ray was reviewed. ASSESSMENT AND PLAN: 1. Abnormal electrocardiogram: At this time, she has electrolyte derangement and metabolic acidosis . This will have to be corrected before making any diagnosis of acute coronary syndrome on an EKG. She is having a lot of rapid atrial fibrillation with some episodes of wide complex rhythm, which cou ld be aberrantly conducted atrial fibrillation versus nonsustained VT versus her potassium was starti ng to act up on her heart. She has received several boluses of bicarbonate and is getting ready to g et a dialysis catheter placed for plans on emergent hemodialysis later this afternoon. I agree with this. This is the sole priority for now. 2. Rapid atrial fibrillation: Currently, most likely she needs the heart rate as she is hypotensive . I will let this atrial fibrillation run slightly faster in the 120s-130s range. I think this is a ppropriate given her acute illness. 3. Nausea, vomiting, and diarrhea: She also has a sore throat, concern for influenza virus. This w ill be checked by the primary team. Infectious etiology is a concern. 4. Pulmonary hypertension: Currently not an acute issue. 5. Mild aortic stenosis, stable at this time. Thank you for letting us participate in the care of your patient. We will follow.
--- NOTE | 2017-06-30 00:12 | CON ---
DATE OF CONSULTATION: 06/29/2017 CONSULTING PHYSICIAN: Cleopatra Quijano M.D. REQUESTING PHYSICIAN: Jake Welch M.D. REASON FOR CONSULTATION: Severe hyperkalemia in a patient with severe acute kidney injury. IMPRESSION: 1. Acute kidney injury. This is likely hemodynamically mediated, possibly in the context of prolong ed prerenal state that may have progressed to acute tubular necrosis. 2. Metabolic acidosis in the context of lactic acidemia, likely resulting from tissue hypoperfusion. 3. Severe hyperkalemia related to problem #1 as well as cellular shift as a result of severe acidemi c state. 4. Possible uremic symptomatologies. PLAN: 1. Aggressive medical treatment of severe hyperkalemia and metabolic acidosis with bicarbonate drip, Kayexalate, dextrose, insulin, albuterol, neb treatment. 2. Given the severe hyperkalemic state and acidotic state with its attendant effect on the hemodynam ics of this patient perpetuating the hemodynamic instability. Decision will be taken to emergently d ialyze this patient to correct the acidosis as well as the severe electrolyte derangements, in this c ase hyperkalemia. 3. Renally dose all medications and avoid potentially nephrotoxic agents as there is still high easley ce of renal recovery. HISTORY OF PRESENT ILLNESS: A 72-year-old female patient who was recently treated in the hospital he re for hypervolemia, discharged on b.i.d. dose of diuretics as well as angiotensin receptor francisco h owever of a smaller dose. According to the , patient has not been feeling well and has not be en eating well with nausea and vomiting; however, the patient continued with her home medication whic h includes her diuretics as well as the angiotensin receptor francisco. The patient's clinical status continued to deteriorate necessitating presentation to the ER where the patient was noted to be sever damián hyperkalemic with potassium of 7, metabolically acidotic as well as hemodynamically unstable. As a result of the constellation of these findings, the decision has been taken to involve Renal in the management of this case. PAST MEDICAL HISTORY: Significant for diastolic congestive heart failure, atrial fibrillation, pulmo nary hypertension, COPD. MEDICATIONS: Medications have been reviewed and as documented on [email or web address]. ALLERGIES: To SULFA, TRIMETHOPRIM. FAMILY HISTORY: No family history of kidney disease. SOCIAL HISTORY: Denies alcohol, tobacco or illicit drug use. , living with the . REVIEW OF SYSTEMS: Highly limited given the clinical status of this patient who is very sick. LABORATORY INVESTIGATION: As documented in the body of the history. PHYSICAL EXAMINATION: GENERAL: The patient was found to be critically ill-looking, noted with the following vital signs. VITAL SIGNS: Blood pressure 89/61, respiratory rate of 26, pulse 119-135. HEENT: Remarkable for mucosa, otherwise unremarkable. NECK: Supple. CARDIOVASCULAR: First and second heart sounds were heard with a systolic murmur. RESPIRATORY SYSTEM: Clear to auscultation anteriorly. DIGESTIVE SYSTEM: Revealed a benign abdomen with positive bowel sounds. EXTREMITIES: No peripheral edema. SKIN: No new gross rash. LYMPHATICS: No peripheral lymphadenopathy. NEUROLOGIC: Alert, no lateralizing sign but very lethargic. SUMMARY: A 72-year-old female patient who presented here with severe electrolyte derangements in the context of severe acute kidney injury. Thank you for this consultation. We will follow with you.
[2017-06-30] MEDS: Norepinephrine 8 MG/0.9% NS 250 ML IVPB SCH ×2 (00:32→12:46)
[2017-06-30 05:09] LABS: #Lymphocytes 1.6 thou/uL (1.20-3.40); #Monocytes 2.3 thou/uL (0.11-0.59); #Neutrophils 13.8 thou/uL (1.40-6.50); %Basophils 0.1 % (0.0-1.0); %Eosinophils 0.2 % (0.0-10.0); %Lymphocytes 9.1 % (21.0-51.0); %Monocytes 12.9 % (0.0-10.0); %Neutrophils 77.7 % (42.0-75.0); Hemoglobin 11.1 g/dL (12.0-16.0); Mean Corpuscular HGB CONC 30.8 g/dL (32.0-36.0); Mean Corpuscular Hemoglobin 29.3 pg (27.0-31.0); Mean Platelet Volume 9.5 fL (7.4-10.4); Platelet Count 290 thou/uL (130-400); RBC Distribution Width 15.4 % (11.5-14.5); White Blood Cell (WBC) Count 17.7 thou/uL (4.8-10.8)
[2017-06-30 05:13] LABS: Prothrombin Time 23.1 SEC (12.0-14.7)
[2017-06-30] MEDS: Ondansetron HCl/PF 4 MG/2 ML Vial IVP PRN ×3 (05:29→19:17)
[2017-06-30 05:52] LABS: Albumin 3.6 g/dL (3.4-4.8); Anion Gap 39 mmol/L (10-20); BUN (Urea Nitrogen) 45 mg/dL (9.8-20.1); Calc. Creatinine Clearance 12 mL/min (70-130); Calcium 8.5 mg/dL (7.8-10.44); Carbon Dioxide 15 mmol/L (23-31); Chloride 90 mmol/L (98-107); Estimated GFR-MDRD 9; Glucose 105 mg/dL (83-110); Potassium 4.8 mmol/L (3.5-5.1); Sodium 139 mmol/L (136-145)
[2017-06-30] MEDS ORDERED: Sodium Chloride 0.9% 1,000 ML IV SCH ×2 (07:00→13:39)
[2017-06-30] MEDS ORDERED: Famotidine/PF 20 mg/2ml Vial SLOW IVP SCH (09:00)
[2017-06-30] MEDS: Heparin 5,000 UNITS/ML VIAL SC SCH ×2 (09:05→20:05)
[2017-06-30] MEDS: Aspirin 81 mg Enteric Coated Tablet PO SCH ×2 (09:06)
[2017-06-30] MEDS: guaiFENesin ER 600 MG TAB PO SCH ×3 (09:06→20:05)
[2017-06-30] MEDS: Mometasone/Formoterol 120 PUFF INHALER INH SCH ×2 (10:00→21:02)
--- NOTE | 2017-06-30 12:20 | PDOC.PN ---
- Subjective Encounter Start Date: 06/30/17 Encounter Start Time: 11:10 Subjective: awake, recieving HD -: c/o cough with expect of black sputum -: wants nausea meds, got zofran at 5.30 am - Objective Resuscitation Status: Resuscitation Status FULL:Full Resuscitation MAR Reviewed: Yes Vital Signs & Weight: Vital Signs (12 hours) Temp Pulse Ox 06/30/17 08:00 99.0 F 06/30/17 04:00 98 F 96 Weight Weight 157 lb 6.561 oz Most Recent Monitor Data Heart Rate from ECG 107 NIBP 92/51 NIBP BP-Mean 70 Respiration from ECG 16 SpO2 100 I&O: 06/29/17 06/30/17 07/01/17 06:59 06:59 06:59 Intake Total 3763 Output Total 115 0 Balance 3648 0 Result Diagrams: 06/30/17 04:00 06/30/17 04:00 Additional Labs: Accuchecks 06/30/17 06/29/17 06/29/17 00:04 15:35 13:35 POC Glucose 123 H 140 H 95 Phys Exam - Physical Examination HEENT: PERRLA, sclera anicteric dry mucosa Neck: no JVD, supple Respiratory: no wheezing, no rales Cardiovascular: no significant murmur, irregular Gastrointestinal: soft, non-tender, no distention, positive bowel sounds Musculoskeletal: no edema, pulses present Neurological: non-focal, moves all 4 limbs Psychiatric: A&O x 3 Dx/Plan (1) Acute renal failure Status: Acute Comment: initiated on HD (2) Hyperkalemia Code(s): E87.5 - HYPERKALEMIA Status: Resolved (3) Metabolic acidosis Code(s): E87.2 - ACIDOSIS Status: Acute (4) UTI (urinary tract infection) Status: Acute Qualifiers: Urinary tract infection type: acute cystitis Hematuria presence: without hematuria Qualified Code(s): N30.00 - Acute cystitis without hematuria (5) Hypovolemic shock Code(s): R57.1 - HYPOVOLEMIC SHOCK Status: Acute Comment: on levophed (6) Sepsis Code(s): A41.9 - SEPSIS, UNSPECIFIED ORGANISM Status: Suspected Qualifiers: Sepsis type: sepsis due to unspecified organism Qualified Code(s): A41.9 - Sepsis, unspecified organism (7) Atrial fibrillation Code(s): I48.91 - UNSPECIFIED ATRIAL FIBRILLATION Status: Chronic Qualifiers: Atrial fibrillation type: chronic Qualified Code(s): I48.2 - Chronic atrial fibrillation Comment: with rvr (8) CAD (coronary artery disease) Code(s): I25.10 - ATHSCL HEART DISEASE OF [place] CORONARY ARTERY W/O ANG PCTRS Status: Chronic Qualifiers: Coronary Disease-Associated Artery/Lesion type: [place] artery [place] vs. transplanted heart: [place] heart Associated angina: without angina Qualified Code(s): I25.10 - Atherosclerotic heart disease of [place] coronary artery without angina pectoris - Plan is on ceft, dc vanc -: await full cultures, urine is growing proteus -: hyperkalemia is resolved with initiation of HD -: very poor urine output 115ml last 18hrs -: will start protonix 40mg iv q12h, ?coffee grounds, Hb around 11g * . Review of Systems - Medications/Allergies Allergies/Adverse Reactions: Allergies Allergy/AdvReac Type Severity Reaction Status Date / Time sulfamethoxazole Allergy Verified 06/20/17 04:07 [From Bactrim] trimethoprim [From Bactrim] Allergy Verified 06/20/17 04:07 Medications: Current Medications Acetaminophen (Tylenol) 650 mg PO Q4H PRN PRN Reason: Headache/Fever or Pain Last Admin: 06/29/17 22:38 Dose: 650 mg Aspirin (Ecotrin) 81 mg PO DAILY [facility] Last Admin: 06/30/17 09:06 Dose: Not Given Dextrose/Water (Dextrose 50%) 25 gm SLOW IVP PRN PRN PRN Reason: Hypoglycemia Glucagon (Glucagon) 1 mg IM PRN PRN PRN Reason: Hypoglycemia Guaifenesin (Mucinex) 1,200 mg PO Q12HR [facility] Last Admin: 06/30/17 09:06 Dose: Not Given Guaifenesin/Dextromethorphan (Robitussin Dm) 15 ml PO Q4H PRN PRN Reason: Cough Heparin Sodium (Porcine) (Heparin) 5,000 units SC BID [facility] Last Admin: 06/30/17 09:05 Dose: 5,000 units Ceftriaxone Sodium 2 gm/ (Sodium Chloride) 100 mls @ 200 mls/hr IVPB Q24HR [facility] Last Admin: 06/29/17 14:41 Dose: 100 mls Dextrose/Water (D5w) 1,000 mls @ 0 mls/hr IV .Q0M PRN; As Directed PRN Reason: Hypoglycemia Norepinephrine Bitartrate (Levophed) 250 mls @ 0 mls/hr IVPB INF [facility]; Titrate PRN Reason: Protocol Last Admin: 06/30/17 00:32 Dose: 250 mls Sodium Chloride (Normal Saline 0.9%) 1,000 mls @ 0 mls/hr IV .Q0M [facility] PRN Reason: KVO Insulin Human Lispro (Humalog) 0 units SC .MODERATE SLIDING SC PRN PRN Reason: Moderate Correctional Scale Mometasone Furoate/Formoterol Fumar (Dulera 200 Mcg/5 Mcg Inhaler) 1 puff INH BID-RT [facility] Last Admin: 06/29/17 18:37 Dose: Not Given Ondansetron HCl (Zofran) 4 mg IVP Q6H PRN PRN Reason: Nausea/Vomiting Last Admin: 06/30/17 05:29 Dose: 4 mg Pantoprazole Sodium (Protonix) 40 mg IVP Q12HR [facility] Simvastatin (Zocor) 10 mg PO HS [facility] Last Admin: 06/29/17 20:46 Dose: 10 mg Sodium Chloride (Flush - Normal Saline) 10 ml IV Q12HR [facility]
[2017-06-30] MEDS: Dextrose 50% Abboject 50 ML SYRINGE SLOW IVP PRN (13:22)
[2017-06-30 14:20] LABS: Glucose 13 mg/dL (83-110)
[2017-06-30] MEDS: cefTRIAXone\\ROCEPHIN 2 GM in Sodium Chloride 0.9% 100 ML IVPB SCH (14:34)
[2017-06-30 14:57] LABS: Glucose 86 mg/dL (83-110)
--- NOTE | 2017-06-30 15:43 | PRG ---
DATE OF SERVICE: 06/30/2017 SUBJECTIVE: Ms. Samson underwent dialysis today, but apparently due to hypotension they really could not take much fluid off. She is not making any urine. PHYSICAL EXAMINATION: VITAL SIGNS: Her blood pressure is 80/50, pulse is 100-110, sinus. LUNGS: Clear. CARDIAC: Tachycardic. ABDOMEN: Soft and nontender. EXTREMITIES: There is no edema. LABORATORY DATA: The patient's blood sugar is very low according to the nurse, creatinine is 4.6. ASSESSMENT: 1. Pulmonary hypertension. 2. Renal failure. 3. Probably volume depleted overall. PLAN: 1. Increase intravenous fluid. 2. Continue to follow with you. 3. Poor prognosis long-term.
[2017-06-30 15:47] LABS: #Lymphocytes 1.6 thou/uL (1.20-3.40); #Monocytes 2.2 thou/uL (0.11-0.59); #Neutrophils 12.7 thou/uL (1.40-6.50); %Basophils 0.3 % (0.0-1.0); %Eosinophils 0.1 % (0.0-10.0); %Lymphocytes 9.7 % (21.0-51.0); %Monocytes 13.4 % (0.0-10.0); %Neutrophils 76.6 % (42.0-75.0); Hemoglobin 11.1 g/dL (12.0-16.0); Mean Corpuscular HGB CONC 31.6 g/dL (32.0-36.0); Mean Corpuscular Hemoglobin 29.4 pg (27.0-31.0); Mean Corpuscular Volume 93.1 fl (81.0-99.0); Platelet Count 260 thou/uL (130-400); RBC Distribution Width 15.4 % (11.5-14.5); Red Blood Cell (RBC) Count 3.77 mill/uL (4.20-5.40); White Blood Cell (WBC) Count 16.5 thou/uL (4.8-10.8)
[2017-06-30] MEDS ORDERED: Dextrose 5 % And 0.9 % NaCl 1,000 ML IV SCH (17:15)
[2017-06-30] MEDS: Dextrose 5 % And 0.9 % NaCl 1,000 ML IV SCH (17:52)
[2017-06-30] MEDS: Pantoprazole 40 MG VIAL IVP SCH (20:03)
[2017-06-30] MEDS: Simvastatin 5 MG TAB PO SCH (20:06)
--- NOTE | 2017-06-30 22:20 | PRG ---
DATE OF SERVICE: 06/30/2017 SUBJECTIVE: Pratima Samson is a 72-year-old female who was admitted to the hospital in the ICU with significant volume overload. She became confused as per her live-in partner. He says she is having nausea, vomiting, diarrhea, fe lt weak as of Friday and Friday and she became extremely confused. She was placed in the ICU. Initial impression was that she might have been dehydrated and hypovolemic. She was in consultation by Nephrology and apparently underwent dialysis. She is a former smoker. According to family members, she can barely walk even up a 100 feet without getting markedly short of breath. She sees doctors in [place] for pulmonary hypertension and is plac ed on medication for that. Additionally, she is extremely weak. She denies any coughing or chest pain at this time. She is now on ceftriaxone and Dulera. OBJECTIVE: GENERAL: Awake, alert, and responsive. VITAL SIGNS: Blood pressure 100/60, pulse 80, respirations 18. CHEST: Decreased breath sounds, no wheezing. CARDIAC: Normal S1, S2. No gallops. ABDOMEN: Soft, no masses. LABORATORY DATA: White count 16,000, H&H 11 and 35, platelet count is 260. Glucose is 87. Urine is growing Proteus. Her BUN and creatinine are 45 and 4.64. Anion gap is improved at 15. Lactic acid was 21. Urine is normal. IMPRESSION: 1. Urinary tract infection. 2. Nausea, vomiting, and diarrhea for a period of time off and on, has never seen GI. 3. Atrial fibrillation and pulmonary hypertension, probably secondary to cardiac etiology. 4. Former smoker. 5. Renal failure. PLAN: I agree with present treatment. Supportive care. We will follow while in the ICU.
--- NOTE | 2017-06-30 23:01 | PRG ---
DATE OF SERVICE: 06/30/2017 SUBJECTIVE: The patient was seen and examined today, still alert, oriented. Noted with the followin g vital signs. OBJECTIVE: VITAL SIGNS: Afebrile with blood pressure 98/51 with a pulse of 117-123, respiratory rate of 20. HEENT: Unremarkable with moist oral mucosa. No conjunctival injection or icterus. NECK: Supple CARDIOVASCULAR SYSTEM: First and second heart sounds, tachycardic. RESPIRATORY SYSTEM: Clear to auscultation anteriorly. DIGESTIVE SYSTEM: Revealed a benign abdomen with positive bowel sounds. EXTREMITIES: No peripheral edema. SKIN: No new gross rash. LABORATORY INVESTIGATIONS: Showed a creatinine of 4.64 with BUN of 45, bicarbonate of 15. Phosphoru s of 7.0. IMPRESSION: 1. Severe acute tubular necrosis. 2. Hyperphosphatemia. 3. Metabolic acidosis, all the above related to problem #1. PLAN: 1. For now, we will continue the renal supportive measures, especially as it relates to potassium 2. Low potassium diet. 3. Renally dose all medications. 4. Further management to be dependent on the clinical course. The patient's IV fluid changed to dex trose saline.
[2017-07-01] MEDS: Dextrose 50% Abboject 50 ML SYRINGE SLOW IVP PRN ×2 (00:34→06:24)
[2017-07-01] MEDS: Ondansetron HCl/PF 4 MG/2 ML Vial IVP PRN (00:34)
[2017-07-01] MEDS: Norepinephrine 8 MG/0.9% NS 250 ML IVPB SCH (00:34)
[2017-07-01] MEDS ORDERED: Dextrose 10% in Water 1,000 ML IV SCH (00:45)
[2017-07-01] MEDS ORDERED: Promethazine HCl 25 MG/ML VIAL SLOW IVP PRN (02:44)
[2017-07-01] MEDS: Dextrose 5 % And 0.9 % NaCl 1,000 ML IV SCH (06:32)
--- NOTE | 2017-07-01 07:07 | CON ---
DATE OF CONSULTATION: 06/30/2017 REASON FOR CONSULTATION: "GI bleed." HISTORY OF PRESENT ILLNESS: Ms. Samson is a 72-year-old female who was admitted to the hospital [facility] for nausea and vomiting, and hypertension. She had come to this hospital on 06/20/2017 with le g swelling and abdominal swelling and dyspnea. She was found to be in atrial fibrillation with RVR a t that time, had acute congestive heart failure. She was ultimately discharged home on 06/25/[address]uresis. She was found to have severe pulmonary hypertension and hospitalization as well. When she went home, she went home on torsemide 20 mg b.i.d., Cozaar 25 mg b.i.d. from 100, Coreg 3.12 5 mg b.i.d. from 6.25 b.i.d. and she was left on her metformin, Xarelto 50 mg daily, Digoxin, losarta n, potassium, and insulin. Therefore, she represented to the hospital, states she came back for naus ea and vomiting. She had been at home for about four days. She had had hypoglycemia. Her main symp mikal really when she came in was hypoglycemia itself. She was admitted to the hospital for volume dep letion showed multiple electrolyte abnormalities. White count was 16.5, hemoglobin 13; however, base line hemoglobin is around 11, she felt she was dehydrated, her platelets were 281,000. Her hemoglobi n has remained at 11.1 throughout the hospitalization. INR was 2. She was acidotic with pH 7.21. S he had glucose as low as 13 up until this afternoon, following she was improved. LABORATORY STUDIES: Sodium is 137, potassium is 7. BUN and creatinine were 67 and 7. Liver functio n tests are normal except for a phosphorus of 9.4. Today, her sodium is 139, potassium is 4.9, BUN a nd creatinine are 45 and 4.64, this was after dialysis. On 06/25/2017, the last date for which she h ad labs before she presented this admission. Creatinine is 1.5 and her BUN was 31. PAST MEDICAL HISTORY: Pulmonary hypertension, acute on chronic renal failure, diastolic heart failur e, chronic atrial fibrillation, coronary artery disease, mild aortic valve stenosis. PRESENT MEDICATIONS HERE: Rocephin, aspirin 81 mg daily, Tylenol, guaifenesin, insulin sliding scale , and Dulera inhaler, levophed p.r.n., Protonix 40 IV q.12 hours, simvastatin, normal saline. PAST SURGICAL HISTORY: Previous bladder suspension, appendectomy, and cardiac workup. Also, in the mid 90s, she had an ulcer in the past. PHYSICAL EXAMINATION: VITAL SIGNS: Presently, heart rate is 130-120, blood pressure 99/57. LUNGS: Clear. HEART: Regular rate and rhythm without clicks or murmurs. ABDOMEN: Soft, nontender. RECTAL: Reveals green stool in the vault. There is no rolling melena. The nurse said she has had 6 bowel movements today, which she had received Kayexalate last night for hyperkalemia. Hemoccult was positive. ASSESSMENT: Patient has a positive Hemoccult, no signs of overt hemorrhage. She has had some emesis or burped up a little bit of dark material and this may have been some coffee ground emesis. Her he moglobin has been stable and she shows no signs of acute bleeding at this time. On rectal exam, ther e is no blood. There is no melena. The stool is actually green and likely what looks like the diarr hea is from the Kayexalate she was given. RECOMMENDATIONS: IV Protonix q.12 hours, serial H&Hs with her history of ulcers and history of nause a and if this does not improve markedly as her electrolyte abnormalities, renal failure, improving, t dennys will need to consider endoscopy. Presently, she is probably still under the influence of her Xar elto, which she is on up until yesterday. She has been taking this all through her last hospitalizat ion and at home, and in light of her renal failure, she has probably developed some toxicity with thi s. Unless there was acute bleeding, I would not intervene at this time. We will follow.
[2017-07-01] MEDS: Mometasone/Formoterol 120 PUFF INHALER INH SCH ×2 (08:03→18:31)
--- NOTE | 2017-07-01 08:20 | PRG ---
DATE OF SERVICE: 07/01/2017 Pratima Samson this morning remains nauseated, vomiting and profuse diarrhea. She is being dialyzed. PHYSICAL EXAMINATION: VITAL SIGNS: Pulse 117, blood pressure 103/56, sats 97%, respiratory rate 23. CHEST: Chest reveals decreased breath sounds, no wheezing. CARDIAC: Normal S1, S2. ABDOMEN: Soft, no masses. LABORATORY DATA: White count 16,000, H&H 11 and 35. Glucose 146. Urine showed Proteus mirabilis. IMPRESSION: 1. Persistent nausea and vomiting. 2. Recurrent supraventricular tachycardia, torsades. 3. Coronary artery disease. 4. Renal failure. PLAN: Await input from GI. In the meantime, PT and supportive care. Dialysis. Antibiotics. I will follow.
[2017-07-01] MEDS: Pantoprazole 40 MG VIAL IVP SCH ×2 (09:30→22:22)
[2017-07-01] MEDS: Aspirin 81 mg Enteric Coated Tablet PO SCH (09:30)
[2017-07-01] MEDS: guaiFENesin ER 600 MG TAB PO SCH ×2 (09:30→22:22)
[2017-07-01] MEDS: Heparin 5,000 UNITS/ML VIAL SC SCH ×2 (09:30→22:22)
--- NOTE | 2017-07-01 09:38 | PRG ---
DATE OF SERVICE: 07/01/2017 PHYSICAL EXAMINATION: GENERAL: Ms. Samson is undergoing hemodialysis now. VITAL SIGNS: Her blood pressure is 111/69, pulse is 120, it is sinus. LUNGS: Clear of any rales, there is some scattered wheezing. CARDIAC: Tachycardic. ABDOMEN: Soft, nontender. PERTINENT LABORATORY: Her potassium was 4.8 yesterday. Creatinine 4.64. ASSESSMENT: 1. Pulmonary hypertension. 2. Acute renal failure. 3. Relatively low blood pressure. PLAN: 1. Continue hemodialysis. 2. Hypoglycemic that is being corrected. Long-term prognosis is guarded. Her main underlying problem is pulmonary hypertension.
[2017-07-01] MEDS ORDERED: Vancomycin HCl 750 MG in Sodium Chloride 0.9% 250 ML 250 ML IVPB SCH (11:00)
[2017-07-01 12:35] LABS: Hemoglobin 10.4 g/dL (12.0-16.0); Mean Corpuscular HGB CONC 31.9 g/dL (32.0-36.0); Mean Corpuscular Hemoglobin 29.5 pg (27.0-31.0); Mean Corpuscular Volume 92.6 fl (81.0-99.0); Mean Platelet Volume 9.3 fL (7.4-10.4); Platelet Count 206 thou/uL (130-400); RBC Distribution Width 15.4 % (11.5-14.5); Red Blood Cell (RBC) Count 3.54 mill/uL (4.20-5.40); White Blood Cell (WBC) Count 13.8 thou/uL (4.8-10.8)
[2017-07-01 12:53] LABS: Band 8 % (5-11); Lymphocytes 17 % (21-51); MDiff Complete? YES; Monocytes 15 % (0-10); Neutrophil 59 % (42-75); RBC Morphology Normal; Reactive Lymphocytes 1 % (0-10)
[2017-07-01 13:02] LABS: Albumin 3.5 g/dL (3.4-4.8); Anion Gap 13 mmol/L (10-20); BUN (Urea Nitrogen) 13 mg/dL (9.8-20.1); Calc. Creatinine Clearance 33 mL/min (70-130); Calcium 8.4 mg/dL (7.8-10.44); Carbon Dioxide 29 mmol/L (23-31); Chloride 98 mmol/L (98-107); Estimated GFR-MDRD 27; Glucose 87 mg/dL (83-110); Magnesium 1.9 mg/dL (1.6-2.6); Phosphorus 2.4 mg/dL (2.3-4.7); Potassium 3.7 mmol/L (3.5-5.1); Sodium 136 mmol/L (136-145)
[2017-07-01] MEDS: Acetaminophen 325 MG TAB PO PRN ×3 (13:52→22:22)
[2017-07-01] MEDS: cefTRIAXone\\ROCEPHIN 2 GM in Sodium Chloride 0.9% 100 ML IVPB SCH (13:56)
[2017-07-01] MEDS: Dextrose 10% in Water 1,000 ML IV SCH (18:42)
--- NOTE | 2017-07-01 20:17 | PRG ---
DATE OF SERVICE: 07/01/2017 SUBJECTIVE: Ms. Samson is doing well today. She is tolerating a soft diet. She has not had any vom iting. She has had green stools, but no melena. MEDICATIONS: Continue on Tylenol, Rocephin, insulin, Levophed, Protonix 40 mg q.12. OBJECTIVE: VITAL SIGNS: Blood pressure is 95/75, heart rate 53, pulse is 108. LUNGS: Clear. HEART: Regular rate and rhythm. ABDOMEN: Soft and nontender. LABORATORY DATA: White count of 13.8, hemoglobin is 10.4, platelet count 206. BUN and creatinine ar e 13 and 1.83. Electrolytes are otherwise normal. ASSESSMENT: Severe pulmonary hypertension, acute renal failure, resolving. Systemic inflammatory re sponse syndrome of unclear etiology. Hemoccult positive stool without any overt vomiting. There has been no vomiting today. RECOMMENDATIONS: Continue IV PPI, liquid diet and start oral supplements.
--- NOTE | 2017-07-01 21:33 | PDOC.PN ---
- Subjective Encounter Start Date: 07/01/17 Encounter Start Time: 18:00 Patient seen and examined. Feels gen weak/fatigued. No overnight events - Objective Resuscitation Status: Resuscitation Status FULL:Full Resuscitation MAR Reviewed: Yes Vital Signs & Weight: Vital Signs (12 hours) Temp Pulse Resp Pulse Ox 07/01/17 18:31 104 H 19 99 07/01/17 15:00 98.2 F 07/01/17 11:00 97.7 F Weight Admit Weight 157 lb Weight 162 lb 14.746 oz Most Recent Monitor Data Heart Rate from ECG 101 NIBP 125/61 NIBP BP-Mean 81 Respiration from ECG 19 SpO2 98 I&O: 06/30/17 07/01/17 07/02/17 06:59 06:59 06:59 Intake Total 3763 2075 1246 Output Total 115 75 30 Balance 3648 2000 1216 Result Diagrams: 07/02/17 04:30 07/02/17 04:30 Additional Labs: Accuchecks 07/01/17 07/01/17 07/01/17 17:01 10:18 05:43 POC Glucose 131 H 81 46 L* 07/01/17 07/01/17 01:20 00:25 POC Glucose 128 H 51 L* EKG Reviewed by me: Yes (Tele Afib) Phys Exam - Physical Examination Constitutional: NAD Respiratory: no wheezing, no rhonchi Cardiovascular: no rub, irregular Gastrointestinal: soft, non-tender, positive bowel sounds Neurological: moves all 4 limbs Dx/Plan - Plan cont current plan of care, continue antibiotics, DVT proph w/SCDs IMPRESSION: 1. FREYA/CKD 2/Hyperkalemia/Hypovolemic shock/ATN/Metabolic acidosis - Started on dialysis 2. N/V/?GI bleed - on IV PPI 3. CAD s/p stents 4. h/o tachyarrhythmia 5. Proteus UTI 6. Chronic Afib on anticoag - Xarelto on hold 7. Pulm HTN/Chronic diastolic HF PLAN: * Cont PPI * Critical care/GI/Nephro/Cardio following * AM labs * Cont to monitor * Probable transfer to floor in AM * Cont current meds as below Review of Systems - Review of Systems Respiratory: negative: Cough, Dry, Shortness of Breath, Hemoptysis, SOB with Excertion, Pleuritic Pain, Sputum, Wheezing Cardiovascular: negative: Chest Pain, Palpitations, Orthopnea, Paroxysmal Noc. Dyspnea, Edema, Light Headedness - Medications/Allergies Allergies/Adverse Reactions: Allergies Allergy/AdvReac Type Severity Reaction Status Date / Time sulfamethoxazole Allergy Verified 06/20/17 04:07 [From Bactrim] trimethoprim [From Bactrim] Allergy Verified 06/20/17 04:07 promethazine [From Phenergan] AdvReac Intermediate Anxiety Verified 07/01/17 07: 39 Medications: Current Medications Acetaminophen (Tylenol) 650 mg PO Q4H PRN PRN Reason: Headache/Fever or Pain Last Admin: 07/01/17 17:42 Dose: 650 mg Aspirin (Ecotrin) 81 mg PO DAILY [facility] Last Admin: 07/01/17 09:30 Dose: 81 mg Dextrose/Water (Dextrose 50%) 25 gm SLOW IVP PRN PRN PRN Reason: Hypoglycemia Last Admin: 07/01/17 06:24 Dose: 25 gm Glucagon (Glucagon) 1 mg IM PRN PRN PRN Reason: Hypoglycemia Guaifenesin (Mucinex) 1,200 mg PO Q12HR [facility] Last Admin: 07/01/17 09:30 Dose: 1,200 mg Guaifenesin/Dextromethorphan (Robitussin Dm) 15 ml PO Q4H PRN PRN Reason: Cough Heparin Sodium (Porcine) (Heparin) 5,000 units SC BID [facility] Last Admin: 07/01/17 09:30 Dose: 5,000 units Ceftriaxone Sodium 2 gm/ (Sodium Chloride) 100 mls @ 200 mls/hr IVPB Q24HR [facility] Last Admin: 07/01/17 13:56 Dose: 100 mls Dextrose/Water (D5w) 1,000 mls @ 0 mls/hr IV .Q0M PRN; As Directed PRN Reason: Hypoglycemia Last Admin: 06/30/17 14:22 Dose: 1,000 mls Norepinephrine Bitartrate (Levophed) 250 mls @ 0 mls/hr IVPB INF [facility]; Titrate PRN Reason: Protocol Last Admin: 07/01/17 00:34 Dose: 250 mls Dextrose/Water (Dextrose 10% In Water) 1,000 mls @ 75 mls/hr IV INF [facility] Last Admin: 07/01/17 18:42 Dose: 1,000 mls Insulin Human Lispro (Humalog) 0 units SC .MODERATE SLIDING SC PRN PRN Reason: Moderate Correctional Scale Mometasone Furoate/Formoterol Fumar (Dulera 200 Mcg/5 Mcg Inhaler) 1 puff INH BID-RT [facility] Last Admin: 07/01/17 18:31 Dose: 1 puff Ondansetron HCl (Zofran) 4 mg IVP Q6H PRN PRN Reason: Nausea/Vomiting Last Admin: 07/01/17 00:34 Dose: 4 mg Pantoprazole Sodium (Protonix) 40 mg IVP Q12HR [facility] Last Admin: 07/01/17 09:30 Dose: 40 mg Simvastatin (Zocor) 10 mg PO HS [facility] Last Admin: 06/30/17 20:06 Dose: 10 mg Sodium Chloride (Flush - Normal Saline) 10 ml IV Q12HR [facility] Last Admin: 07/01/17 09:30 Dose: 10 ml
--- NOTE | 2017-07-01 21:38 | PRG ---
DATE OF SERVICE: 07/01/2017 SUBJECTIVE: The patient was seen and examined, noted with the following vital signs. PHYSICAL EXAMINATION: VITAL SIGNS: Afebrile, blood pressure 111/69, pulse of 120. HEENT AND NECK: Unremarkable with moist oral mucosa. Neck is supple. No conjunctival injection. N o icterus. CARDIOVASCULAR: First and second heart sounds were heard, tachycardic. RESPIRATORY: Clear to auscultation with wheezes. DIGESTIVE SYSTEM: Revealed a benign abdomen. EXTREMITIES: No peripheral edema. SKIN: No new gross rash. LABORATORY INVESTIGATIONS: Significant for creatinine that has dropped down to 1.83. IMPRESSION: 1. Acute kidney injury which seems to be improving. 2. Hyperkalemia, resolved. 3. Sepsis treatment. PLAN: 1. We will likely hold dialysis tomorrow and reevaluate the renal function vis-a-vis the possibility of recovery up to the point of not requiring renal replacement therapy anymore. 2. Renally dose all medications and avoid potentially nephrotoxic agents. 3. Further management will be dependent on the clinical course.
[2017-07-01] MEDS: Simvastatin 5 MG TAB PO SCH (22:22)
[2017-07-01] MEDS: HumaLOG 300 UNITS/3 ML VIAL SC PRN (22:37)
[2017-07-02 05:31] LABS: Eosinophils 2 % (0-10); Lymphocytes 16 % (21-51); MDiff Complete? YES; Mean Corpuscular HGB CONC 32.1 g/dL (32.0-36.0); Mean Corpuscular Hemoglobin 29.8 pg (27.0-31.0); Mean Corpuscular Volume 92.8 fl (81.0-99.0); Mean Platelet Volume 9.3 fL (7.4-10.4); Monocytes 15 % (0-10); Neutrophil 67 % (42-75); Platelet Count 159 thou/uL (130-400); Red Blood Cell (RBC) Count 3.35 mill/uL (4.20-5.40); White Blood Cell (WBC) Count 9.5 thou/uL (4.8-10.8)
[2017-07-02 05:53] LABS: Albumin 3.2 g/dL (3.4-4.8); Anion Gap 13 mmol/L (10-20); BUN (Urea Nitrogen) 22 mg/dL (9.8-20.1); Calc. Creatinine Clearance 21 mL/min (70-130); Calcium 8.2 mg/dL (7.8-10.44); Carbon Dioxide 27 mmol/L (23-31); Chloride 94 mmol/L (98-107); Estimated GFR-MDRD 17; Glucose 222 mg/dL (83-110); Phosphorus 3.5 mg/dL (2.3-4.7); Potassium 3.6 mmol/L (3.5-5.1); Sodium 130 mmol/L (136-145)
[2017-07-02] MEDS: HumaLOG 300 UNITS/3 ML VIAL SC PRN (06:34)
[2017-07-02] MEDS: Mometasone/Formoterol 120 PUFF INHALER INH SCH ×2 (07:40→19:02)
--- NOTE | 2017-07-02 08:37 | RAD ---
AP CHEST: Indication: Daily CCU evaluation; history of pulmonary artery hypertension. Comparison: 06-29-17 FINDINGS: The lungs remain hyperinflated but clear. The moderate to prominent cardiomegaly is stable. Vascular calcifications of the aortic arch are stable. No confluent airspace opacity, pleural effusion, or pne umothorax is evident. IMPRESSION: Stable examination. No acute abnormality demonstrated. POS: [facility]
--- NOTE | 2017-07-02 09:33 | PRG ---
DATE OF SERVICE: 07/02/2017 HISTORY: Ms. Samson is more awake and alert today. She feels better. She is eating a little bit. No chest pain or pressure. PHYSICAL EXAMINATION: VITAL SIGNS: Blood pressure 117/61 and she is off pressors. Pulse 80. LUNGS: Clear. CARDIAC: Normal S1, S2. ASSESSMENT: 1. Pulmonary hypertension. 2. Renal failure, acute, still not making urine. 3. Metabolic acidosis, resolved. 4. Pulmonary hypertension as mentioned. PLAN: Continue supportive care, may need dialysis tomorrow. We will check electrolytes tomorrow.
--- NOTE | 2017-07-02 09:33 | PRG ---
DATE OF SERVICE: 07/02/2017 This morning she is awake, alert, responsive. She is better. She is eating, less diarrhea. PHYSICAL EXAMINATION: VITAL SIGNS: Sats are 90% on 2 liters, respirations 18, pulse 88, blood pressure 100/76. CHEST: Chest reveals decreased breath sounds, no wheezing. CARDIAC: Normal S1, S2. ABDOMEN: Soft, no masses. LABORATORY DATA: White count 9000, H&H 10 and 31, platelet count is normal. Sodium 130, creatinine 2.8. Chest x-ray this morning shows cardiomegaly, otherwise no acute infiltrates were seen. IMPRESSION: 1. Urinary tract infection. 2. Nausea, vomiting and diarrhea. 3. Severe dehydration. 4. Azotemia. PLAN: The patient can be transferred out of the ICU. Cardiology will continue to monitor the patien t's pulmonary hypertension. Overall long-term prognosis is poor.
[2017-07-02] MEDS: Pantoprazole 40 MG VIAL IVP SCH (09:38)
[2017-07-02] MEDS: guaiFENesin ER 600 MG TAB PO SCH ×2 (09:38→21:29)
[2017-07-02] MEDS: Aspirin 81 mg Enteric Coated Tablet PO SCH (09:38)
[2017-07-02] MEDS: Heparin 5,000 UNITS/ML VIAL SC SCH ×2 (09:39→21:30)
[2017-07-02] MEDS ORDERED: Polyethylene Glycol 3350 17 GM Packet PO SCH (09:45)
[2017-07-02] MEDS: Dextrose 10% in Water 1,000 ML IV SCH (12:29)
--- NOTE | 2017-07-02 12:45 | PQF ---
CLINICAL DOCUMENTATION IMPROVEMENT CLARIFICATION FORM: ICD-10 Updated PLEASE DO AN ADDENDUM TO THE PROGRESS NOTE WITH ANY DOCUMENTATION UPDATES OR ADDITIONS AND CARRY THROUGH TO DC SUMMARY. THANK YOU. DATE: 07/02/17 ATTN: DR. ALVAREZ Please exercise your independent, professional judgment in responding to the clarification form. Clinical indicators are provided on the bottom of this form for your review Please check appropriate box(s) to clarify if the following diagnosis has been ruled in our ruled out: "SEPSIS" [ ] Ruled in diagnosis [ ] Continue to treat [ ] Resolved [ ] Ruled out diagnosis [ ] Cannot rule out diagnosis [ ] Other diagnosis [ ] Unable to determine In addition, please specify: Present on Admission (POA): [ ] Yes [ ] No [ ] Unable to determine For continuity of documentation, please document condition throughout progress notes and discharge summary. Thank You. CLINICAL INDICATORS - SIGNS / SYMPTOMS / LABS H& P 06/29: "THE PATIENT WILL BE ADMITTED TO ICU FOR SEVERE HYPOVOLEMIC SHOCK, ACUTE RENAL FAILURE, HYPERKALEMIA, METABOLIC ACIDOSIS, AND POSSIBLE SEPSIS." PROGRESS NOTE 06/30: "SUSPECTED SEPSIS DUE TO UNSPECIFIED ORGANISM" NEPHROLOGY NOTE: "SEPSIS TREATMENT" BP 81/61 PULSE 120 RR 26 CRITICORE TEMP 92.7 WBC 17.7 LACTIC ACID 21.9 TREATMENT: DOPAMINE LEVOPHED IV ZOSYN IV VANCOMYCIN IV FLUIDS CRITICAL CARE MONITORING (This form is maintained as a part of the permanent medical record) 2014 [employer] All Rights Reserved DIAMOND [email or web address] Office: [phone] [facility]
[2017-07-02] MEDS: cefTRIAXone\\ROCEPHIN 2 GM in Sodium Chloride 0.9% 100 ML IVPB SCH (14:30)
--- NOTE | 2017-07-02 15:39 | PRG ---
DATE OF SERVICE: 07/02/2017 SUBJECTIVE: Ms. Samson is no longer nausea and she like to eat more. No vomiting. She has been janina erating full liquids and some Nepro. OBJECTIVE: VITAL SIGNS: Heart rate 118 to 110, blood pressure of 90/49, respirations 18. GENERAL: She is reclining in bed, seems more cheerful. LUNGS: Clear. ABDOMEN: Slightly protuberant, but nontender. There is no rebound. There is no guarding. LABORATORY STUDIES: Hemoglobin is 10.0, white count 9.5, platelet count 159. ASSESSMENT: 1. Anemia. Hemoglobin 10, may be related to acute renal failure, chronic disease. 2. Acute renal failure, improving. 3. Severe pulmonary hypertension. 4. No overt evidence of acute bleeding. 5. Diarrhea, resolved. Clostridium difficile toxin negative. 6. Positive fecal occult blood test. RECOMMENDATIONS: 1. Advance diet. 2. It may be reasonable to consider endoscopy at a future date later in the hospitalization, will le t her get her strength back and continue to improve. Systemic inflammatory response is markedly bett er. We will continue to follow with you.
[2017-07-02] MEDS ORDERED: Senokot S 8.6-50 MG TAB PO SCH (21:00)
[2017-07-02] MEDS: MACITENTAN 10 MG PO SCH (21:30)
[2017-07-02] MEDS: TADALAFIL 20 MG PO SCH (21:31)
[2017-07-02] MEDS: Simvastatin 5 MG TAB PO SCH (21:31)
[2017-07-02] MEDS: Acetaminophen 325 MG TAB PO PRN (21:31)
--- NOTE | 2017-07-02 21:51 | PRG ---
DATE OF SERVICE: 07/02/2017 SUBJECTIVE: The patient was seen and examined today and seems to be doing a little bit better. Note d with the following vital signs. OBJECTIVE: VITAL SIGNS: Blood pressure 105/58, pulse of 104, respiratory rate 18, O2 saturation of 96% on 3 lit ers. HEENT: Unremarkable with moist oral mucosa. No conjunctival injection or icterus. NECK: Supple. CARDIOVASCULAR SYSTEM: First and second heart sounds were heard. RESPIRATORY SYSTEM: Clear to auscultation. DIGESTIVE SYSTEM: Revealed a benign abdomen with positive bowel sounds. EXTREMITIES: No peripheral edema. SKIN: No new gross rash. LABORATORY INVESTIGATION: Showed a sodium of 130, BUN of 22 with a creatinine of 1.82. IMPRESSION: 1. Acute on chronic kidney disease which required emergent dialysis due to severe hyperkalemia. 2. Severe hyperkalemia. This has resolved. 3. Hyponatremia. PLAN: 1. Dialysis to be placed on hold today. We will continue to monitor the renal function. If the loki al function improves to the point of being able to sustain, this patient's dialysis will be discontin ued. However, if evidence did indicate need for renal replacement therapy, this modality of treatmen t will be reinitiated with possibility of placing a tunneled dialysis catheter . 2. Further management to be dependent on the clinical course.
--- NOTE | 2017-07-02 23:40 | PDOC.PN ---
- Subjective Encounter Start Date: 07/02/17 Encounter Start Time: 18:00 Patient seen and examined. No new complaints. No overnight events - Objective Resuscitation Status: Resuscitation Status FULL:Full Resuscitation MAR Reviewed: Yes Vital Signs & Weight: Vital Signs (12 hours) Temp Pulse Resp BP Pulse Ox 07/02/17 19:30 97.7 F 97 18 156/80 H 97 07/02/17 19:02 103 H 20 98 07/02/17 16:30 97.5 F L 104 H 20 94 L 07/02/17 16:29 97.5 F L 104 H 20 145/69 H 94 L 07/02/17 15:35 96 07/02/17 12:00 97.9 F Weight Admit Weight 157 lb Weight 162 lb 14.746 oz Most Recent Monitor Data Heart Rate from ECG 111 NIBP 105/58 NIBP BP-Mean 79 Respiration from ECG 18 SpO2 99 I&O: 07/01/17 07/02/17 07/03/17 06:59 06:59 06:59 Intake Total 5 2205.6 1164 Output Total 75 40 30 Balance 1999 2165.6 1134 Result Diagrams: 07/02/17 04:30 07/03/17 04:51 Additional Labs: Accuchecks 07/02/17 07/02/17 07/02/17 20:41 16:28 12:34 POC Glucose 213 H 214 H 171 H 07/02/17 07/02/17 06:34 04:31 POC Glucose 215 H 222 H EKG Reviewed by me: Yes (Tele Afib) Phys Exam - Physical Examination Constitutional: NAD Respiratory: no wheezing, no rhonchi Cardiovascular: RRR, no rub Gastrointestinal: soft, non-tender, positive bowel sounds Neurological: moves all 4 limbs Dx/Plan - Plan DVT proph w/SCDs IMPRESSION: 1. FREYA/CKD 2/Hyperkalemia/Hypovolemic shock/ATN/Metabolic acidosis - Started on dialysis 2. N/V/?GI bleed - on IV PPI 3. CAD s/p stents 4. h/o tachyarrhythmia 5. Sepsis with acute organ dysfunction due to Proteus UTI - on Atbx 6. Chronic Afib on anticoag - Xarelto on hold 7. Pulm HTN/Chronic diastolic HF PLAN: * Dialysis per Nephro (last dialysis 07/01) * Change PPI to daily * Critical care/GI/Nephro/Cardio following * AM labs * Cont current meds as below Review of Systems - Medications/Allergies Allergies/Adverse Reactions: Allergies Allergy/AdvReac Type Severity Reaction Status Date / Time sulfamethoxazole Allergy Verified 06/20/17 04:07 [From Bactrim] trimethoprim [From Bactrim] Allergy Verified 06/20/17 04:07 promethazine [From Phenergan] AdvReac Intermediate Anxiety Verified 07/01/17 07: 39 Medications: Current Medications Acetaminophen (Tylenol) 650 mg PO Q4H PRN PRN Reason: Headache/Fever or Pain Last Admin: 07/02/17 21:31 Dose: 650 mg Aspirin (Ecotrin) 81 mg PO DAILY [facility] Last Admin: 07/02/17 09:38 Dose: 81 mg Dextrose/Water (Dextrose 50%) 25 gm SLOW IVP PRN PRN PRN Reason: Hypoglycemia Last Admin: 07/01/17 06:24 Dose: 25 gm Glucagon (Glucagon) 1 mg IM PRN PRN PRN Reason: Hypoglycemia Guaifenesin (Mucinex) 1,200 mg PO Q12HR [facility] Last Admin: 07/02/17 21:29 Dose: 1,200 mg Heparin Sodium (Porcine) (Heparin) 5,000 units SC BID [facility] Last Admin: 07/02/17 21:30 Dose: 5,000 units Ceftriaxone Sodium 2 gm/ (Sodium Chloride) 100 mls @ 200 mls/hr IVPB Q24HR [facility] Last Admin: 07/02/17 14:30 Dose: 100 mls Dextrose/Water (D5w) 1,000 mls @ 0 mls/hr IV .Q0M PRN; As Directed PRN Reason: Hypoglycemia Last Admin: 06/30/17 14:22 Dose: 1,000 mls Insulin Human Lispro (Humalog) 0 units SC .MILD SLIDING SCALE PRN PRN Reason: Mild Correctional Scale Insulin Human Lispro (Humalog) 0 units SC .BEDTIME SLIDING SC PRN PRN Reason: Bedtime Correctional Scale Mineral Oil/White Petrolatum (Eucerin Cream) 0 gm TOP BIDPRN PRN PRN Reason: Dry Skin Mometasone Furoate/Formoterol Fumar (Dulera 200 Mcg/5 Mcg Inhaler) 1 puff INH BID-RT [facility] Last Admin: 07/02/17 19:02 Dose: 1 puff Patient Home Med ( Macitentan [Opsumit] 10 Mg) 10 mg PO HS [facility] Last Admin: 07/02/17 21:30 Dose: 10 mg Patient Home Med ( Tadalafil [Adcirca] 20 Mg) 20 mg PO HS [facility] Last Admin: 07/02/17 21:31 Dose: 20 mg Ondansetron HCl (Zofran) 4 mg IVP Q6H PRN PRN Reason: Nausea/Vomiting Last Admin: 07/01/17 00:34 Dose: 4 mg Pantoprazole Sodium (Protonix) 40 mg IVP DAILY [facility] Simvastatin (Zocor) 10 mg PO HS [facility] Last Admin: 07/02/17 21:31 Dose: 10 mg
[2017-07-03] MEDS: Acetaminophen 325 MG TAB PO PRN ×2 (05:18→16:26)
[2017-07-03 05:25] LABS: Anion Gap 14 mmol/L (10-20); BUN (Urea Nitrogen) 36 mg/dL (9.8-20.1); Calc. Creatinine Clearance 17 mL/min (70-130); Calcium 8.5 mg/dL (7.8-10.44); Carbon Dioxide 25 mmol/L (23-31); Chloride 93 mmol/L (98-107); Estimated GFR-MDRD 12; Glucose 202 mg/dL (83-110); Potassium 3.7 mmol/L (3.5-5.1); Sodium 128 mmol/L (136-145)
[2017-07-03] MEDS: Mometasone/Formoterol 120 PUFF INHALER INH SCH ×2 (07:15→19:39)
[2017-07-03] MEDS ORDERED: Polyethylene Glycol 3350 17 GM Packet PO SCH (09:00)
[2017-07-03] MEDS: Pantoprazole 40 MG VIAL IVP SCH (10:11)
[2017-07-03] MEDS: Aspirin 81 mg Enteric Coated Tablet PO SCH (10:12)
[2017-07-03] MEDS: Heparin 5,000 UNITS/ML VIAL SC SCH ×2 (10:12→22:46)
[2017-07-03] MEDS: guaiFENesin ER 600 MG TAB PO SCH ×2 (10:12→22:46)
[2017-07-03] MEDS: Sodium Chloride 0.9% 20 ML ONE ×2 (10:13→13:22)
[2017-07-03] MEDS: HumaLOG 300 UNITS/3 ML VIAL SC PRN ×4 (10:40→22:56)
--- NOTE | 2017-07-03 12:13 | PDOC.PN ---
- Subjective Encounter Start Date: 07/03/17 Encounter Start Time: 08:15 Subjective: no sob, feels better -: is tolerating oral diet with no nausea now - Objective Resuscitation Status: Resuscitation Status FULL:Full Resuscitation MAR Reviewed: Yes Vital Signs & Weight: Vital Signs (12 hours) Temp Pulse Resp BP Pulse Ox 07/03/17 08:00 97.1 F L 104 H 18 151/71 H 98 07/03/17 04:58 97.5 F L 101 H 20 133/58 L 98 Weight Admit Weight 157 lb Weight 167 lb Most Recent Monitor Data Heart Rate from ECG 111 NIBP 105/58 NIBP BP-Mean 79 Respiration from ECG 18 SpO2 99 I&O: 07/02/17 07/03/17 07/04/17 06:59 06:59 06:59 Intake Total 2205.6 1404 Output Total 40 80 Balance 2165.6 1324 Result Diagrams: 07/02/17 04:30 07/03/17 04:51 Additional Labs: Accuchecks 07/03/17 07/03/17 07/02/17 05:49 02:55 20:41 POC Glucose 178 H 169 H 213 H 07/02/17 07/02/17 16:28 12:34 POC Glucose 214 H 171 H Phys Exam - Physical Examination HEENT: PERRLA, moist MMs Neck: no JVD, supple Respiratory: no wheezing, no rales Cardiovascular: RRR, no significant murmur Gastrointestinal: soft, non-tender, no distention, positive bowel sounds Musculoskeletal: pulses present, edema present Neurological: non-focal, moves all 4 limbs Psychiatric: A&O x 3 Dx/Plan (1) Acute renal failure Status: Acute Comment: initiated on HD (2) Hyperkalemia Code(s): E87.5 - HYPERKALEMIA Status: Resolved (3) Metabolic acidosis Code(s): E87.2 - ACIDOSIS Status: Acute (4) UTI (urinary tract infection) Status: Acute Qualifiers: Urinary tract infection type: acute cystitis Hematuria presence: without hematuria Qualified Code(s): N30.00 - Acute cystitis without hematuria (5) Hypovolemic shock Code(s): R57.1 - HYPOVOLEMIC SHOCK Status: Resolved (6) Sepsis Code(s): A41.9 - SEPSIS, UNSPECIFIED ORGANISM Status: Suspected Qualifiers: Sepsis type: sepsis due to unspecified organism Qualified Code(s): A41.9 - Sepsis, unspecified organism (7) Atrial fibrillation Code(s): I48.91 - UNSPECIFIED ATRIAL FIBRILLATION Status: Chronic Qualifiers: Atrial fibrillation type: chronic Qualified Code(s): I48.2 - Chronic atrial fibrillation (8) CAD (coronary artery disease) Code(s): I25.10 - ATHSCL HEART DISEASE OF [place] CORONARY ARTERY W/O ANG PCTRS Status: Chronic Qualifiers: Coronary Disease-Associated Artery/Lesion type: [place] artery [place] vs. transplanted heart: [place] heart Associated angina: without angina Qualified Code(s): I25.10 - Atherosclerotic heart disease of [place] coronary artery without angina pectoris (9) Pulmonary HTN Code(s): I27.20 - PULMONARY HYPERTENSION, UNSPECIFIED Status: Acute - Plan urine output last 48hrs has been a total of 80+40 ml -: last HD was 07/01, likely might need HD usp -: await renal function to return, creatinine this am is 3.7 -: is on ceftriaxone, opsumit and tadalafil. Avoid nitro * . Review of Systems - Medications/Allergies Allergies/Adverse Reactions: Allergies Allergy/AdvReac Type Severity Reaction Status Date / Time sulfamethoxazole Allergy Verified 06/20/17 04:07 [From Bactrim] trimethoprim [From Bactrim] Allergy Verified 06/20/17 04:07 promethazine [From Phenergan] AdvReac Intermediate Anxiety Verified 07/01/17 07: 39 Medications: Current Medications Acetaminophen (Tylenol) 650 mg PO Q4H PRN PRN Reason: Headache/Fever or Pain Last Admin: 07/03/17 05:18 Dose: 650 mg Aspirin (Ecotrin) 81 mg PO DAILY [facility] Last Admin: 07/03/17 10:12 Dose: 81 mg Dextrose/Water (Dextrose 50%) 25 gm SLOW IVP PRN PRN PRN Reason: Hypoglycemia Last Admin: 07/01/17 06:24 Dose: 25 gm Glucagon (Glucagon) 1 mg IM PRN PRN PRN Reason: Hypoglycemia Guaifenesin (Mucinex) 1,200 mg PO Q12HR [facility] Last Admin: 07/03/17 10:12 Dose: 1,200 mg Heparin Sodium (Porcine) (Heparin) 5,000 units SC BID [facility] Last Admin: 07/03/17 10:12 Dose: 5,000 units Ceftriaxone Sodium 2 gm/ (Sodium Chloride) 100 mls @ 200 mls/hr IVPB Q24HR [facility] Last Admin: 07/02/17 14:30 Dose: 100 mls Dextrose/Water (D5w) 1,000 mls @ 0 mls/hr IV .Q0M PRN; As Directed PRN Reason: Hypoglycemia Last Admin: 06/30/17 14:22 Dose: 1,000 mls Insulin Human Lispro (Humalog) 0 units SC .MILD SLIDING SCALE PRN PRN Reason: Mild Correctional Scale Last Admin: 07/03/17 10:40 Dose: 2 unit Insulin Human Lispro (Humalog) 0 units SC .BEDTIME SLIDING SC PRN PRN Reason: Bedtime Correctional Scale Mineral Oil/White Petrolatum (Eucerin Cream) 0 gm TOP BIDPRN PRN PRN Reason: Dry Skin Mometasone Furoate/Formoterol Fumar (Dulera 200 Mcg/5 Mcg Inhaler) 1 puff INH BID-RT [facility] Last Admin: 07/03/17 07:15 Dose: 1 puff Patient Home Med ( Macitentan [Opsumit] 10 Mg) 10 mg PO HS [facility] Last Admin: 07/02/17 21:30 Dose: 10 mg Patient Home Med ( Tadalafil [Adcirca] 20 Mg) 20 mg PO HS [facility] Last Admin: 07/02/17 21:31 Dose: 20 mg Ondansetron HCl (Zofran) 4 mg IVP Q6H PRN PRN Reason: Nausea/Vomiting Last Admin: 07/01/17 00:34 Dose: 4 mg Pantoprazole Sodium (Protonix) 40 mg IVP DAILY [facility] Last Admin: 07/03/17 10:11 Dose: 40 mg Simvastatin (Zocor) 10 mg PO HS [facility] Last Admin: 07/02/17 21:31 Dose: 10 mg
[2017-07-03] MEDS: cefTRIAXone\\ROCEPHIN 2 GM in Sodium Chloride 0.9% 100 ML IVPB SCH (13:21)
--- NOTE | 2017-07-03 21:22 | PRG ---
DATE OF SERVICE: 07/03/2017 Ms. Samson is out of the telemetry area now. She is not having chest pain or pressure. She feels be tter. She did not put out much urine yesterday. There is not much recorded in the output now, but the husb and states she put a lot of urine in the catheter bag this afternoon has been recorded. PHYSICAL EXAMINATION: VITAL SIGNS: Blood pressure most recently recorded is 153/72, but on the blood pressure cuff it is 1 04 systolic. Pulse is 90. LUNGS: Clear. CARDIAC: Normal S1, normal S2. ABDOMEN: Soft, nontender. EXTREMITIES: Severe edema. The skin is tense, very swollen with severe edema bilaterally. LABORATORY DATA: Sodium is 128. ASSESSMENT: 1. Pulmonary hypertension, acute renal failure. Unfortunately, making some urine. 2. Severely volume overloaded. PLAN: 1. We will try to give her one dose of Lasix, which is making urine. Otherwise, she will need dialy sis tomorrow. 2. Long-term prognosis remains guarded to poor.
[2017-07-03] MEDS ORDERED: Melatonin 3 MG TAB PO SCH (22:00)
[2017-07-03] MEDS ORDERED: Furosemide 40 MG/4 ML VIAL SLOW IVP SCH (22:00)
[2017-07-03] MEDS: MACITENTAN 10 MG PO SCH (22:46)
[2017-07-03] MEDS: TADALAFIL 20 MG PO SCH (22:46)
[2017-07-03] MEDS: Simvastatin 5 MG TAB PO SCH (22:46)
[2017-07-04 05:58] LABS: Anion Gap 18 mmol/L (10-20); BUN (Urea Nitrogen) 48 mg/dL (9.8-20.1); Calc. Creatinine Clearance 15 mL/min (70-130); Calcium 8.5 mg/dL (7.8-10.44); Carbon Dioxide 20 mmol/L (23-31); Chloride 94 mmol/L (98-107); Estimated GFR-MDRD 11; Glucose 116 mg/dL (83-110); Potassium 4.3 mmol/L (3.5-5.1); Sodium 128 mmol/L (136-145)
--- NOTE | 2017-07-04 06:22 | PRG ---
DATE OF SERVICE: 07/03/2017 The patient was seen and examined with no new complaints. The patient does not yet complain too much . OBJECTIVE: VITAL SIGNS: Afebrile with temperature 98.4, pulse 98, respiratory rate 20, blood pressure 101/62 to 102/78. HEENT: Unremarkable. CARDIOVASCULAR: First and second heart sounds were heard. RESPIRATORY SYSTEM: Clear to auscultation. ABDOMEN: Digestive system revealed a benign abdomen. EXTREMITIES: Showed 1-2+ bilateral lower extremity edema. LABORATORY INVESTIGATIONS: Showed a creatinine of 3.7, sodium 128. IMPRESSION: 1. Hyponatremia. 2. Acute on chronic kidney disease likely secondary to acute tubular necrosis on . 3. Hyperlipidemia. PLAN: 1. The patient to use hemodialysis and plan 2 hours possible, placement with the use o f dialysis. 2. If the patient's renal function does not show significant improvement over the next 24 hours I wi ll begin to plan 2 hours dialysis treatment to such point when renal function improves to the point o f coming off dialysis. 3. Further management to be dependent on the clinical course.
[2017-07-04] MEDS: Mometasone/Formoterol 120 PUFF INHALER INH SCH ×2 (07:40→19:03)
[2017-07-04] MEDS ORDERED: ALPRAZolam 0.5 MG TAB PO SCH (09:30)
[2017-07-04] MEDS: guaiFENesin ER 600 MG TAB PO SCH ×2 (12:42→21:26)
[2017-07-04] MEDS: Pantoprazole 40 MG VIAL IVP SCH (12:42)
[2017-07-04] MEDS: Aspirin 81 mg Enteric Coated Tablet PO SCH (12:42)
[2017-07-04] MEDS: HumaLOG 300 UNITS/3 ML VIAL SC PRN ×3 (12:43→21:35)
[2017-07-04] MEDS: Heparin 5,000 UNITS/ML VIAL SC SCH ×2 (12:43→21:26)
--- NOTE | 2017-07-04 13:25 | PDOC.PN ---
- Subjective Encounter Start Date: 07/04/17 Encounter Start Time: 08:20 Subjective: is getting HD, no sob -: feels anxious and is waiting for her xanax - Objective Resuscitation Status: Resuscitation Status FULL:Full Resuscitation MAR Reviewed: Yes Vital Signs & Weight: Vital Signs (12 hours) Temp Pulse Resp BP Pulse Ox 07/04/17 08:00 97.5 F L 99 17 161/65 H 92 L 07/04/17 04:00 97.8 F 101 H 20 97/54 L Weight Admit Weight 155 lb 3.287 oz Weight 165 lb 12.8 oz Most Recent Monitor Data Heart Rate from ECG 111 NIBP 105/58 NIBP BP-Mean 79 Respiration from ECG 18 SpO2 99 I&O: 07/03/17 07/04/17 07/05/17 06:59 06:59 06:59 Intake Total 1404 980 Output Total 80 1250 Balance 1324 -270 Result Diagrams: 07/02/17 04:30 07/04/17 04:58 Additional Labs: Accuchecks 07/04/17 07/04/17 07/03/17 12:31 05:55 21:03 POC Glucose 297 H 124 H 209 H 07/03/17 07/03/17 18:28 16:42 POC Glucose 351 H 300 H Phys Exam - Physical Examination HEENT: PERRLA, moist MMs Neck: no JVD, supple Respiratory: no wheezing, no rales Cardiovascular: RRR, no significant murmur Gastrointestinal: soft, non-tender, no distention, positive bowel sounds Musculoskeletal: pulses present, edema present Neurological: non-focal, moves all 4 limbs Psychiatric: A&O x 3 Dx/Plan (1) Acute renal failure Status: Acute Comment: initiated on HD (2) Hyperkalemia Code(s): E87.5 - HYPERKALEMIA Status: Resolved (3) Metabolic acidosis Code(s): E87.2 - ACIDOSIS Status: Acute (4) UTI (urinary tract infection) Status: Acute Qualifiers: Urinary tract infection type: acute cystitis Hematuria presence: without hematuria Qualified Code(s): N30.00 - Acute cystitis without hematuria (5) Hypovolemic shock Code(s): R57.1 - HYPOVOLEMIC SHOCK Status: Resolved (6) Sepsis Code(s): A41.9 - SEPSIS, UNSPECIFIED ORGANISM Status: Suspected Qualifiers: Sepsis type: sepsis due to unspecified organism Qualified Code(s): A41.9 - Sepsis, unspecified organism (7) Atrial fibrillation Code(s): I48.91 - UNSPECIFIED ATRIAL FIBRILLATION Status: Chronic Qualifiers: Atrial fibrillation type: chronic Qualified Code(s): I48.2 - Chronic atrial fibrillation (8) CAD (coronary artery disease) Code(s): I25.10 - ATHSCL HEART DISEASE OF [place] CORONARY ARTERY W/O ANG PCTRS Status: Chronic Qualifiers: Coronary Disease-Associated Artery/Lesion type: [place] artery [place] vs. transplanted heart: [place] heart Associated angina: without angina Qualified Code(s): I25.10 - Atherosclerotic heart disease of [place] coronary artery without angina pectoris (9) Pulmonary HTN Code(s): I27.20 - PULMONARY HYPERTENSION, UNSPECIFIED Status: Acute - Plan is on ceftriaxone for uti -: HD per nephrology advice -: d/w family in the room -: will need tunnelled cath and perm access per neph advice -: to ambulate as tolerated * . Review of Systems - Medications/Allergies Allergies/Adverse Reactions: Allergies Allergy/AdvReac Type Severity Reaction Status Date / Time sulfamethoxazole Allergy Verified 06/20/17 04:07 [From Bactrim] trimethoprim [From Bactrim] Allergy Verified 06/20/17 04:07 promethazine [From Phenergan] AdvReac Intermediate Anxiety Verified 07/01/17 07: 39 Medications: Current Medications Acetaminophen (Tylenol) 650 mg PO Q4H PRN PRN Reason: Headache/Fever or Pain Last Admin: 07/03/17 16:26 Dose: 650 mg Aspirin (Ecotrin) 81 mg PO DAILY [facility] Last Admin: 07/04/17 12:42 Dose: 81 mg Dextrose/Water (Dextrose 50%) 25 gm SLOW IVP PRN PRN PRN Reason: Hypoglycemia Last Admin: 07/01/17 06:24 Dose: 25 gm Glucagon (Glucagon) 1 mg IM PRN PRN PRN Reason: Hypoglycemia Guaifenesin (Mucinex) 1,200 mg PO Q12HR [facility] Last Admin: 07/04/17 12:42 Dose: 1,200 mg Heparin Sodium (Porcine) (Heparin) 5,000 units SC BID [facility] Last Admin: 07/04/17 12:43 Dose: 5,000 units Ceftriaxone Sodium 2 gm/ (Sodium Chloride) 100 mls @ 200 mls/hr IVPB Q24HR [facility] Last Admin: 07/03/17 13:21 Dose: 100 mls Dextrose/Water (D5w) 1,000 mls @ 0 mls/hr IV .Q0M PRN; As Directed PRN Reason: Hypoglycemia Last Admin: 06/30/17 14:22 Dose: 1,000 mls Insulin Human Lispro (Humalog) 0 units SC .MILD SLIDING SCALE PRN PRN Reason: Mild Correctional Scale Last Admin: 07/04/17 12:43 Dose: 6 unit Insulin Human Lispro (Humalog) 0 units SC .BEDTIME SLIDING SC PRN PRN Reason: Bedtime Correctional Scale Last Admin: 07/03/17 22:56 Dose: 2 unit Mineral Oil/White Petrolatum (Eucerin Cream) 0 gm TOP BIDPRN PRN PRN Reason: Dry Skin Mometasone Furoate/Formoterol Fumar (Dulera 200 Mcg/5 Mcg Inhaler) 1 puff INH BID-RT [facility] Last Admin: 07/04/17 07:40 Dose: 1 puff Patient Home Med ( Macitentan [Opsumit] 10 Mg) 10 mg PO HS [facility] Last Admin: 07/03/17 22:46 Dose: 10 mg Patient Home Med ( Tadalafil [Adcirca] 20 Mg) 20 mg PO HS [facility] Last Admin: 07/03/17 22:46 Dose: 20 mg Ondansetron HCl (Zofran) 4 mg IVP Q6H PRN PRN Reason: Nausea/Vomiting Last Admin: 07/01/17 00:34 Dose: 4 mg Pantoprazole Sodium (Protonix) 40 mg IVP DAILY [facility] Last Admin: 07/04/17 12:42 Dose: 40 mg Simvastatin (Zocor) 10 mg PO HS [facility] Last Admin: 07/03/17 22:46 Dose: 10 mg
[2017-07-04] MEDS: cefTRIAXone\\ROCEPHIN 2 GM in Sodium Chloride 0.9% 100 ML IVPB SCH (14:19)
[2017-07-04] MEDS ORDERED: Digoxin 0.5 MG/2 ML AMP SLOW IVP SCH (14:30)
--- NOTE | 2017-07-04 14:47 | PRG ---
DATE OF SERVICE: 07/04/2017 SUBJECTIVE: Ms. Samson underwent hemodialysis this morning. OBJECTIVE: VITAL SIGNS: Her blood pressure is actually much higher now 160/74. Pulse 110, irregular. Now it i s in the 80s. LUNGS: Clear. CARDIAC: Irregularly irregular. ABDOMEN: Soft and nontender. EXTREMITIES: There is only mild edema. LABORATORY DATA: Creatinine is 4.1 and GFR is 11. ASSESSMENT: 1. End-stage renal disease. 2. Pulmonary hypertension. 3. Atrial fibrillation, chronic. 4. Hyponatremia. PLAN: 1. Continue hemodialysis. 2. Give her one dose of digoxin today. 3. Unfortunately, prognosis is very poor. Previously, she was on Xarelto. We will place her on low dose enoxaparin.
[2017-07-04] MEDS: Acetaminophen 325 MG TAB PO PRN (16:26)
[2017-07-04] MEDS: Simvastatin 5 MG TAB PO SCH (21:26)
--- NOTE | 2017-07-04 21:32 | PRG ---
DATE OF SERVICE: 07/04/2017 SUBJECTIVE: The patient was seen and examined and doing better. Noted with the following vital sign s. OBJECTIVE: VITAL SIGNS: Afebrile with temperature 97.6, pulse 99, respiratory rate of 17, O2 sat of 93% with bl ood pressure 151/74. GENERAL: The patient was seen at dialysis, complaining of anxiety. HEENT: Unremarkable. CARDIOVASCULAR SYSTEM: First and second heart sounds were heard. RESPIRATORY SYSTEM: Clear to auscultation. DIGESTIVE SYSTEM: Revealed a benign abdomen with positive bowel sounds. EXTREMITIES: Showed bilateral lower extremity edema. NEUROLOGIC: Revealed a patient that is anxious with no lateralizing sign. LABORATORY INVESTIGATION: Showed a creatinine of 4.14 with BUN of 48, sodium of 128. IMPRESSION: 1. Acute on chronic kidney disease, more or less likely dense acute tubular necrosis. 2. Hyponatremia. 3. Hypervolemia. The patient is not making much of any urine at this point. PLAN: The patient needs dialysis today and will now be on a Friday, Friday, Friday schedule. Now , the patient's kidney function does not show any appreciable sign of recovery. Next week, we will a rrange for a permanent dialysis catheter for long-term dialysis access and plan towards outpatient di alysis placement.
[2017-07-04] MEDS: MACITENTAN 10 MG PO SCH (21:33)
[2017-07-04] MEDS: TADALAFIL 20 MG PO SCH (21:33)
--- NOTE | 2017-07-04 22:15 | PRG ---
DATE OF SERVICE: 07/04/2017 SUBJECTIVE: Ms. Samson was at dialysis today, she had 3 mL taken out, she is very tired. She is eat ing better now and she wants to eat now. She has had no overt bleeding. OBJECTIVE: VITAL SIGNS: Temperature is 97, pulse 94, blood pressure 149/67. ABDOMEN: Soft, nontender. LABORATORY STUDIES: No CBC done today. ASSESSMENT: 1. Nausea and vomiting, resolved. No diarrhea. Patient's appetite has returned. 2. Chronic anemia. 3. Severe pulmonary hypertension. 4. Acute renal failure, resolved. We will follow from a distance. If I can be of further assistance in this patient's care, please do not hesitate to contact me.
[2017-07-05] MEDS ORDERED: Melatonin 3 MG TAB PO PRN (01:59)
[2017-07-05 06:30] LABS: Anion Gap 11 mmol/L (10-20); BUN (Urea Nitrogen) 33 mg/dL (9.8-20.1); Calc. Creatinine Clearance 23 mL/min (70-130); Calcium 8.3 mg/dL (7.8-10.44); Carbon Dioxide 28 mmol/L (23-31); Chloride 97 mmol/L (98-107); Estimated GFR-MDRD 18; Glucose 298 mg/dL (83-110); Potassium 3.8 mmol/L (3.5-5.1); Sodium 132 mmol/L (136-145)
[2017-07-05] MEDS: Heparin 5,000 UNITS/ML VIAL SC SCH ×2 (09:15→21:04)
[2017-07-05] MEDS: Aspirin 81 mg Enteric Coated Tablet PO SCH (09:15)
[2017-07-05] MEDS: guaiFENesin ER 600 MG TAB PO SCH ×2 (09:15→21:03)
[2017-07-05] MEDS: Mometasone/Formoterol 120 PUFF INHALER INH SCH ×2 (09:28→18:59)
--- NOTE | 2017-07-05 11:07 | PDOC.PN ---
- Subjective Encounter Start Date: 07/05/17 Encounter Start Time: 08:35 Subjective: no sob, wants saline sprays for her nostrils and increase dose of sleeping -: -pills at night - Objective Resuscitation Status: Resuscitation Status FULL:Full Resuscitation MAR Reviewed: Yes Vital Signs & Weight: Vital Signs (12 hours) Temp Pulse Resp BP BP Pulse Ox 07/05/17 09:28 86 16 07/05/17 08:02 97.9 F 99 18 181/76 H 96 07/05/17 04:00 97.6 F 108 H 18 132/68 96 07/05/17 00:00 96 16 141/70 H 98 Weight Admit Weight 155 lb 3.287 oz Weight 162 lb 14.4 oz Most Recent Monitor Data Heart Rate from ECG 111 NIBP 105/58 NIBP BP-Mean 79 Respiration from ECG 18 SpO2 99 I&O: 07/04/17 07/05/17 07/06/17 06:59 06:59 06:59 Intake Total 980 1680 Output Total 1250 3725 Balance -270 -2045 Result Diagrams: 07/02/17 04:30 07/05/17 05:44 Additional Labs: Accuchecks 07/05/17 07/04/17 07/04/17 05:56 20:34 17:41 POC Glucose 294 H 240 H 310 H 07/04/17 07/04/17 16:49 12:31 POC Glucose 295 H 297 H Phys Exam - Physical Examination HEENT: PERRLA, moist MMs Neck: no JVD, supple Respiratory: no wheezing, no rales Cardiovascular: RRR, no significant murmur Gastrointestinal: soft, non-tender, positive bowel sounds Musculoskeletal: pulses present, edema present Neurological: non-focal, moves all 4 limbs Psychiatric: A&O x 3 Dx/Plan (1) Acute renal failure Status: Acute Comment: initiated on HD (2) Hyperkalemia Code(s): E87.5 - HYPERKALEMIA Status: Resolved (3) Metabolic acidosis Code(s): E87.2 - ACIDOSIS Status: Acute (4) UTI (urinary tract infection) Status: Acute Qualifiers: Urinary tract infection type: acute cystitis Hematuria presence: without hematuria Qualified Code(s): N30.00 - Acute cystitis without hematuria (5) Hypovolemic shock Code(s): R57.1 - HYPOVOLEMIC SHOCK Status: Resolved (6) Sepsis Code(s): A41.9 - SEPSIS, UNSPECIFIED ORGANISM Status: Suspected Qualifiers: Sepsis type: sepsis due to unspecified organism Qualified Code(s): A41.9 - Sepsis, unspecified organism (7) Atrial fibrillation Code(s): I48.91 - UNSPECIFIED ATRIAL FIBRILLATION Status: Chronic Qualifiers: Atrial fibrillation type: chronic Qualified Code(s): I48.2 - Chronic atrial fibrillation (8) CAD (coronary artery disease) Code(s): I25.10 - ATHSCL HEART DISEASE OF [place] CORONARY ARTERY W/O ANG PCTRS Status: Chronic Qualifiers: Coronary Disease-Associated Artery/Lesion type: [place] artery [place] vs. transplanted heart: [place] heart Associated angina: without angina Qualified Code(s): I25.10 - Atherosclerotic heart disease of [place] coronary artery without angina pectoris (9) Pulmonary HTN Code(s): I27.20 - PULMONARY HYPERTENSION, UNSPECIFIED Status: Acute (10) Anxiety Code(s): F41.9 - ANXIETY DISORDER, UNSPECIFIED Status: Chronic - Plan will dc ceftriaxone in am (7days) for uti -: HD per nephrology advice, will need outpt chair -: continue opsumet and tadalfil for pulm htn -: u.output was 325ml last 24hrs, is off lasix -: to amb in room and hallway as tolerated * . Review of Systems - Medications/Allergies Allergies/Adverse Reactions: Allergies Allergy/AdvReac Type Severity Reaction Status Date / Time sulfamethoxazole Allergy Verified 06/20/17 04:07 [From Bactrim] trimethoprim [From Bactrim] Allergy Verified 06/20/17 04:07 promethazine [From Phenergan] AdvReac Intermediate Anxiety Verified 07/01/17 07: 39 Medications: Current Medications Acetaminophen (Tylenol) 650 mg PO Q4H PRN PRN Reason: Headache/Fever or Pain Last Admin: 07/04/17 16:26 Dose: 650 mg Aspirin (Ecotrin) 81 mg PO DAILY [facility] Last Admin: 07/05/17 09:15 Dose: 81 mg Dextrose/Water (Dextrose 50%) 25 gm SLOW IVP PRN PRN PRN Reason: Hypoglycemia Last Admin: 07/01/17 06:24 Dose: 25 gm Glucagon (Glucagon) 1 mg IM PRN PRN PRN Reason: Hypoglycemia Guaifenesin (Mucinex) 1,200 mg PO Q12HR [facility] Last Admin: 07/05/17 09:15 Dose: 1,200 mg Heparin Sodium (Porcine) (Heparin) 5,000 units SC BID [facility] Last Admin: 07/05/17 09:15 Dose: 5,000 units Ceftriaxone Sodium 2 gm/ (Sodium Chloride) 100 mls @ 200 mls/hr IVPB Q24HR [facility] Last Admin: 07/04/17 14:19 Dose: 100 mls Dextrose/Water (D5w) 1,000 mls @ 0 mls/hr IV .Q0M PRN; As Directed PRN Reason: Hypoglycemia Last Admin: 06/30/17 14:22 Dose: 1,000 mls Insulin Human Lispro (Humalog) 0 units SC .MILD SLIDING SCALE PRN PRN Reason: Mild Correctional Scale Last Admin: 07/04/17 17:42 Dose: 8 unit Insulin Human Lispro (Humalog) 0 units SC .BEDTIME SLIDING SC PRN PRN Reason: Bedtime Correctional Scale Last Admin: 07/04/17 21:35 Dose: 2 unit Melatonin (Melatonin) 3 mg PO HSPRN PRN PRN Reason: Insomnia Mineral Oil/White Petrolatum (Eucerin Cream) 0 gm TOP BIDPRN PRN PRN Reason: Dry Skin Mometasone Furoate/Formoterol Fumar (Dulera 200 Mcg/5 Mcg Inhaler) 1 puff INH BID-RT [facility] Last Admin: 07/05/17 09:28 Dose: 1 puff Patient Home Med ( Macitentan [Opsumit] 10 Mg) 10 mg PO [facility] Last Admin: 07/04/17 21:33 Dose: 10 mg Patient Home Med ( Tadalafil [Adcirca] 20 Mg) 20 mg PO [facility] Last Admin: 07/04/17 21:33 Dose: 20 mg Ondansetron HCl (Zofran) 4 mg IVP Q6H PRN PRN Reason: Nausea/Vomiting Last Admin: 07/01/17 00:34 Dose: 4 mg Pantoprazole Sodium (Protonix) 40 mg PO DAILY [facility] Last Admin: 07/05/17 09:15 Dose: 40 mg Simvastatin (Zocor) 10 mg PO [facility] Last Admin: 07/04/17 21:26 Dose: 10 mg Sodium Chloride (Flush - Normal Saline) 10 ml IVF Q12HR [facility] Last Admin: 07/05/17 09:16 Dose: 10 ml Sodium Chloride (Flush - Normal Saline) 10 ml IVF PRN PRN PRN Reason: Saline Flush
[2017-07-05] MEDS ORDERED: Zolpidem Tartrate 5 MG TAB PO PRN (11:11)
[2017-07-05] MEDS: HumaLOG 300 UNITS/3 ML VIAL SC PRN ×3 (12:22→21:09)
[2017-07-05] MEDS: Acetaminophen 325 MG TAB PO PRN ×2 (12:25→21:03)
[2017-07-05] MEDS: ALPRAZolam 0.5 MG TAB PO PRN ×2 (13:15→21:03)
[2017-07-05] MEDS: cefTRIAXone\\ROCEPHIN 2 GM in Sodium Chloride 0.9% 100 ML IVPB SCH (14:03)
--- NOTE | 2017-07-05 16:05 | PRG ---
DATE OF SERVICE: 07/05/2017 SUBJECTIVE: Ms. Samson is feeling much better. She has no nausea or vomiting. She is eating well. OBJECTIVE: VITAL SIGNS: Blood pressure is 129/68, temperature 97, pulse 93, respirations 18. ABDOMEN: Soft, nontender. LABORATORY STUDIES: BUN and creatinine are 33 and 2.68. ASSESSMENT: 1. Nausea, vomiting, diarrhea, which has resolved. 2. Coffee ground emesis, resolved, likely Pilar-Mirza tear. 3. Acute renal failure. 4. Severe pulmonary hypertension. RECOMMENDATIONS: Repeat H and H tomorrow and make sure it has been stable.
--- NOTE | 2017-07-05 20:55 | PRG ---
DATE OF SERVICE: 07/05/2017 SUBJECTIVE: The patient was seen and examined with no new complaint and noted with the following vit al signs. PHYSICAL EXAMINATION: VITAL SIGNS: Afebrile with temperature 97.6, pulse 93, respiratory rate of 17, O2 SAT 97%, blood pre ssure 129/68. HEENT: Unremarkable with . CARDIOVASCULAR SYSTEM: First and second heart sounds were heard. RESPIRATORY SYSTEM: Clear to auscultation. DIGESTIVE SYSTEM: Revealed a benign abdomen. EXTREMITIES: Showed peripheral edema. SKIN: No new gross rash. LYMPHATICS: No peripheral lymphadenopathy. LABORATORY INVESTIGATIONS: Showed a creatinine of 2.68, BUN of 33, sodium 132. IMPRESSION: 1. Dense acute tubular necrosis, on hemodialysis. 2. Hyperkalemia, resolved. 3. Hypovolemia. 4. Hyponatremia. PLAN: 1. The patient was dialyzed yesterday, but will not receive any dialysis today and tomorrow, and on Friday we will reevaluate, and if it becomes evident that the renal function recovery is not yet sign ificant, we will plan towards placing a tunnel dialysis catheter and discontinue the femoral dialysis catheter and at that point begin to make preparation for outpatient dialysis placement. 2. Further management will be dependent on the clinical course, especially as it relates to renal fu nction recovery.
[2017-07-05] MEDS: Simvastatin 5 MG TAB PO SCH (21:02)
[2017-07-05] MEDS: MACITENTAN 10 MG PO SCH (21:16)
[2017-07-05] MEDS: TADALAFIL 20 MG PO SCH (21:16)
[2017-07-06 05:15] LABS: Hemoglobin 9.4 g/dL (12.0-16.0)
[2017-07-06 05:28] LABS: Anion Gap 14 mmol/L (10-20); BUN (Urea Nitrogen) 41 mg/dL (9.8-20.1); Calc. Creatinine Clearance 22 mL/min (70-130); Calcium 8.5 mg/dL (7.8-10.44); Carbon Dioxide 26 mmol/L (23-31); Chloride 99 mmol/L (98-107); Estimated GFR-MDRD 17; Glucose 248 mg/dL (83-110); Potassium 3.5 mmol/L (3.5-5.1); Sodium 135 mmol/L (136-145)
[2017-07-06] MEDS: Heparin 5,000 UNITS/ML VIAL SC SCH ×2 (09:18→21:03)
[2017-07-06] MEDS: Carvedilol 6.25 MG TAB PO SCH ×2 (09:19→21:02)
[2017-07-06] MEDS: Aspirin 81 mg Enteric Coated Tablet PO SCH (09:19)
[2017-07-06] MEDS: guaiFENesin ER 600 MG TAB PO SCH ×2 (09:19→21:01)
[2017-07-06] MEDS: Mometasone/Formoterol 120 PUFF INHALER INH SCH ×2 (09:21→20:32)
[2017-07-06] MEDS: Acetaminophen 325 MG TAB PO PRN (09:24)
--- NOTE | 2017-07-06 11:33 | PDOC.PN ---
- Subjective Encounter Start Date: 07/06/17 Encounter Start Time: 08:50 Subjective: no sob, still has some anxiety attacks - Objective Resuscitation Status: Resuscitation Status FULL:Full Resuscitation MAR Reviewed: Yes Vital Signs & Weight: Vital Signs (12 hours) Temp Pulse Resp BP BP Pulse Ox 07/06/17 09:21 80 12 07/06/17 09:20 97.8 F 106 H 20 122/78 100 07/06/17 09:19 122/78 07/06/17 04:00 97.9 F 99 20 118/68 91 L Weight Admit Weight 155 lb 3.287 oz Weight 164 lb Most Recent Monitor Data Heart Rate from ECG 111 NIBP 105/58 NIBP BP-Mean 79 Respiration from ECG 18 SpO2 99 I&O: 07/05/17 07/06/17 07/07/17 06:59 06:59 06:59 Intake Total 1680 1770 Output Total 3725 1370 Balance -2045 400 Result Diagrams: 07/06/17 04:47 07/06/17 04:47 Additional Labs: Accuchecks 07/05/17 07/05/17 07/05/17 23:21 20:30 18:22 POC Glucose 310 H 470 H 407 H 07/05/17 11:41 POC Glucose 370 H Phys Exam - Physical Examination HEENT: PERRLA, moist MMs Neck: no JVD, supple Respiratory: no wheezing, no rales Cardiovascular: RRR, no significant murmur Gastrointestinal: soft, no distention, positive bowel sounds Musculoskeletal: pulses present, edema present Neurological: non-focal, moves all 4 limbs Psychiatric: A&O x 3 Dx/Plan (1) Acute renal failure Status: Acute Comment: initiated on HD (2) Hyperkalemia Code(s): E87.5 - HYPERKALEMIA Status: Resolved (3) Metabolic acidosis Code(s): E87.2 - ACIDOSIS Status: Acute (4) UTI (urinary tract infection) Status: Acute Qualifiers: Urinary tract infection type: acute cystitis Hematuria presence: without hematuria Qualified Code(s): N30.00 - Acute cystitis without hematuria (5) Hypovolemic shock Code(s): R57.1 - HYPOVOLEMIC SHOCK Status: Resolved (6) Sepsis Code(s): A41.9 - SEPSIS, UNSPECIFIED ORGANISM Status: Suspected Qualifiers: Sepsis type: sepsis due to unspecified organism Qualified Code(s): A41.9 - Sepsis, unspecified organism (7) Atrial fibrillation Code(s): I48.91 - UNSPECIFIED ATRIAL FIBRILLATION Status: Chronic Qualifiers: Atrial fibrillation type: chronic Qualified Code(s): I48.2 - Chronic atrial fibrillation (8) CAD (coronary artery disease) Code(s): I25.10 - ATHSCL HEART DISEASE OF [place] CORONARY ARTERY W/O ANG PCTRS Status: Chronic Qualifiers: Coronary Disease-Associated Artery/Lesion type: [place] artery [place] vs. transplanted heart: [place] heart Associated angina: without angina Qualified Code(s): I25.10 - Atherosclerotic heart disease of [place] coronary artery without angina pectoris (9) Pulmonary HTN Code(s): I27.20 - PULMONARY HYPERTENSION, UNSPECIFIED Status: Acute (10) Anxiety Code(s): F41.9 - ANXIETY DISORDER, UNSPECIFIED Status: Chronic - Plan has made nearly 1370mls of urine last 24hrs now -: likely is having renal recovery -: start levemir 30u HS -: xarelto is held for now, to wear rosendo hose -: watch for electrolytes, d/w pt and boyfriend at bedside * . Review of Systems - Medications/Allergies Allergies/Adverse Reactions: Allergies Allergy/AdvReac Type Severity Reaction Status Date / Time sulfamethoxazole Allergy Verified 06/20/17 04:07 [From Bactrim] trimethoprim [From Bactrim] Allergy Verified 06/20/17 04:07 promethazine [From Phenergan] AdvReac Intermediate Anxiety Verified 07/01/17 07: 39 Medications: Current Medications Acetaminophen (Tylenol) 650 mg PO Q4H PRN PRN Reason: Headache/Fever or Pain Last Admin: 07/06/17 09:24 Dose: 650 mg Alprazolam (Xanax) 0.5 mg PO TIDPRN PRN PRN Reason: Anxiety Last Admin: 07/05/17 21:03 Dose: 0.5 mg Aspirin (Ecotrin) 81 mg PO DAILY [facility] Last Admin: 07/06/17 09:19 Dose: 81 mg Atorvastatin Calcium (Lipitor) 10 mg PO HS [facility] Carvedilol (Coreg) 6.25 mg PO BID [facility] Last Admin: 07/06/17 09:19 Dose: 6.25 mg Dextrose/Water (Dextrose 50%) 25 gm SLOW IVP PRN PRN PRN Reason: Hypoglycemia Last Admin: 07/01/17 06:24 Dose: 25 gm Gabapentin (Neurontin) 100 mg PO [facility] Glucagon (Glucagon) 1 mg IM PRN PRN PRN Reason: Hypoglycemia Guaifenesin (Mucinex) 1,200 mg PO Q12HR [facility] Last Admin: 07/06/17 09:19 Dose: 1,200 mg Heparin Sodium (Porcine) (Heparin) 5,000 units SC BID [facility] Last Admin: 07/06/17 09:18 Dose: 5,000 units Ceftriaxone Sodium 2 gm/ (Sodium Chloride) 100 mls @ 200 mls/hr IVPB Q24HR [facility] Last Admin: 07/05/17 14:03 Dose: 100 mls Dextrose/Water (D5w) 1,000 mls @ 0 mls/hr IV .Q0M PRN; As Directed PRN Reason: Hypoglycemia Last Admin: 06/30/17 14:22 Dose: 1,000 mls Insulin Detemir 30 units/ (Miscellaneous Medication) 0.3 mls @ 0 mls/hr SC [facility] Insulin Human Lispro (Humalog) 0 units SC .MILD SLIDING SCALE PRN PRN Reason: Mild Correctional Scale Last Admin: 07/05/17 18:29 Dose: 10 unit Insulin Human Lispro (Humalog) 0 units SC .BEDTIME SLIDING SC PRN PRN Reason: Bedtime Correctional Scale Last Admin: 07/05/17 21:09 Dose: 5 unit Melatonin (Melatonin) 3 mg PO HSPRN PRN PRN Reason: Insomnia Mineral Oil/White Petrolatum (Eucerin Cream) 0 gm TOP BIDPRN PRN PRN Reason: Dry Skin Mometasone Furoate/Formoterol Fumar (Dulera 200 Mcg/5 Mcg Inhaler) 1 puff INH BID-RT [facility] Last Admin: 07/06/17 09:21 Dose: 1 puff Patient Home Med ( Macitentan [Opsumit] 10 Mg) 10 mg PO [facility] Last Admin: 07/05/17 21:16 Dose: 10 mg Patient Home Med ( Tadalafil [Adcirca] 20 Mg) 20 mg PO [facility] Last Admin: 07/05/17 21:16 Dose: 20 mg Ondansetron HCl (Zofran) 4 mg IVP Q6H PRN PRN Reason: Nausea/Vomiting Last Admin: 07/01/17 00:34 Dose: 4 mg Pantoprazole Sodium (Protonix) 40 mg PO DAILY [facility] Last Admin: 07/06/17 09:24 Dose: 40 mg Sodium Chloride (Flush - Normal Saline) 10 ml IVF Q12HR [facility] Last Admin: 07/05/17 21:04 Dose: 10 ml Sodium Chloride (Flush - Normal Saline) 10 ml IVF PRN PRN PRN Reason: Saline Flush Last Admin: 07/05/17 14:09 Dose: 10 ml Zolpidem Tartrate (Ambien) 5 mg PO HSPRN PRN PRN Reason: Insomnia
[2017-07-06] MEDS: HumaLOG 300 UNITS/3 ML VIAL SC PRN ×2 (11:43→17:17)
[2017-07-06] MEDS: cefTRIAXone\\ROCEPHIN 2 GM in Sodium Chloride 0.9% 100 ML IVPB SCH (14:06)
[2017-07-06] MEDS ORDERED: Insulin Detemir 100 UNITS/ML 10 UNITS in Pre-Filled Syringe 1 EACH SC SCH (15:15)
--- NOTE | 2017-07-06 19:50 | PRG ---
DATE OF SERVICE: 07/06/2017 SUBJECTIVE: Ms. Samson has no complaints today. She is eating. PHYSICAL EXAMINATION: VITAL SIGNS: Temperature 97, pulse 106, blood pressure 107/60. ABDOMEN: Slightly protuberant, but nontender. LABORATORY STUDIES: Hemoglobin today was 9.4 and stable. Sodium 135, BUN and creatinine are 41 and 2.69. ASSESSMENT: 1. Nausea, vomiting, and diarrhea, resolved. 2. Anemia, stable, seemingly related to chronic renal failure. 3. Severe pulmonary hypertension. 4. Coronary artery disease with atrial fibrillation. RECOMMENDATIONS: From a GI standpoint, no plans for endoscopy. Hemoglobin stable, would continue ul cer prophylaxis with H2 francisco. If Ican be of further assistance in patient's care, please do not h esitate to contact me.
[2017-07-06] MEDS ORDERED: Non-Formulary Item 1 EACH (Insulin Detemir 100 Units/Ml [Levemir] 30 UNITS) SC SCH (21:00)
[2017-07-06] MEDS: Gabapentin 100 MG CAP PO SCH (21:02)
[2017-07-06] MEDS: Atorvastatin Calcium 10 MG TAB PO SCH (21:02)
[2017-07-06] MEDS: Insulin Detemir 100 UNITS/ML 30 UNITS in Pre-Filled Syringe 1 EACH SC SCH (21:04)
[2017-07-06] MEDS: MACITENTAN 10 MG PO SCH (21:15)
[2017-07-06] MEDS: TADALAFIL 20 MG PO SCH (21:16)
[2017-07-07] MEDS: ALPRAZolam 0.5 MG TAB PO PRN ×3 (01:37→23:33)
[2017-07-07 05:36] LABS: Anion Gap 14 mmol/L (10-20); BUN (Urea Nitrogen) 43 mg/dL (9.8-20.1); Calc. Creatinine Clearance 23 mL/min (70-130); Calcium 9.1 mg/dL (7.8-10.44); Carbon Dioxide 27 mmol/L (23-31); Chloride 98 mmol/L (98-107); Estimated GFR-MDRD 18; Glucose 286 mg/dL (83-110); Potassium 3.8 mmol/L (3.5-5.1); Sodium 135 mmol/L (136-145)
[2017-07-07] MEDS: HumaLOG 300 UNITS/3 ML VIAL SC PRN ×3 (06:08→21:01)
--- NOTE | 2017-07-07 07:15 | PRG ---
DATE OF SERVICE: 07/06/2017 SUBJECTIVE: The patient was seen and examined and seems to be improving, and noted with the followin g vital signs. PHYSICAL EXAMINATION: VITAL SIGNS: Afebrile with temperature 97.3, pulse 87, respiratory rate of 20, O2 sat 90% on 2 liter s, blood pressure 139/65. Urinary output seems to have peaked up with their input and output showing -2045 mL in the past 24 hours. CARDIOVASCULAR SYSTEM: First and second heart sounds were heard. RESPIRATORY SYSTEM: Clear to auscultation. DIGESTIVE SYSTEM: Revealed an obese abdomen. EXTREMITIES: Showed peripheral edema. LABORATORY INVESTIGATIONS: Showing hemoglobin of 9.4, sodium 135, BUN 41, with a creatinine of 2.69. Blood sugar in the 400 range. IMPRESSION: 1. Acute on chronic kidney disease seems to be showing some evidence of recovery. 2. Hyperkalemia. 3. Hypervolemia, suboptimally controlled diabetes. PLAN: 1. This patient's renal function seems to be improving; therefore, we will hold off on surgical cons ults for evaluation of access. 2. The patient may or may not require continued hemodialysis. We will continue to monitor the kidne y function and make further decisions accordingly. 3. Please avoid potentially nephrotoxic agents. There seems to be some ray of hope of renal recover y.
[2017-07-07] MEDS: Mometasone/Formoterol 120 PUFF INHALER INH SCH ×2 (09:15→19:31)
[2017-07-07] MEDS ORDERED: Heparin 10,000 UNITS/ 10 ML VIAL ONE (11:50)
[2017-07-07] MEDS ORDERED: Insulin Detemir 100 UNITS/ML 15 UNITS in Pre-Filled Syringe 1 EACH SC SCH (12:15)
--- NOTE | 2017-07-07 12:16 | PDOC.PN ---
- Subjective Encounter Start Date: 07/07/17 Encounter Start Time: 09:40 Subjective: is getting HD now, no sob -: her anxiety is controlled well, slept better last night - Objective Resuscitation Status: Resuscitation Status FULL:Full Resuscitation MAR Reviewed: Yes Vital Signs & Weight: Vital Signs (12 hours) Temp Pulse Resp BP Pulse Ox 07/07/17 06:00 18 100 07/07/17 04:00 97.8 F 97 16 94/55 L 90 L Weight Admit Weight 155 lb 3.287 oz Weight 160 lb 1.6 oz Most Recent Monitor Data Heart Rate from ECG 111 NIBP 105/58 NIBP BP-Mean 79 Respiration from ECG 18 SpO2 99 I&O: 07/06/17 07/07/17 07/08/17 06:59 06:59 06:59 Intake Total 1770 1160 Output Total 1370 1270 Balance 400 -110 Result Diagrams: 07/06/17 04:47 07/07/17 05:00 Additional Labs: Accuchecks 07/07/17 07/07/17 07/06/17 06:04 01:46 20:57 POC Glucose 324 H 318 H 335 H 07/06/17 07/06/17 07/06/17 17:15 14:49 11:25 POC Glucose 462 H 446 H 434 H Phys Exam - Physical Examination HEENT: PERRLA, moist MMs Neck: no JVD, supple Respiratory: no wheezing, no rales Cardiovascular: RRR, no significant murmur Gastrointestinal: soft, non-tender, positive bowel sounds Musculoskeletal: pulses present, edema present Neurological: non-focal, moves all 4 limbs Psychiatric: A&O x 3 Dx/Plan (1) Acute renal failure Status: Acute Comment: initiated on HD (2) Hyperkalemia Code(s): E87.5 - HYPERKALEMIA Status: Resolved (3) Metabolic acidosis Code(s): E87.2 - ACIDOSIS Status: Resolved (4) UTI (urinary tract infection) Status: Resolved Qualifiers: Urinary tract infection type: acute cystitis Hematuria presence: without hematuria Qualified Code(s): N30.00 - Acute cystitis without hematuria (5) Hypovolemic shock Code(s): R57.1 - HYPOVOLEMIC SHOCK Status: Resolved (6) Sepsis Code(s): A41.9 - SEPSIS, UNSPECIFIED ORGANISM Status: Resolved Qualifiers: Sepsis type: sepsis due to unspecified organism Qualified Code(s): A41.9 - Sepsis, unspecified organism (7) Atrial fibrillation Code(s): I48.91 - UNSPECIFIED ATRIAL FIBRILLATION Status: Chronic Qualifiers: Atrial fibrillation type: chronic Qualified Code(s): I48.2 - Chronic atrial fibrillation (8) CAD (coronary artery disease) Code(s): I25.10 - ATHSCL HEART DISEASE OF [place] CORONARY ARTERY W/O ANG PCTRS Status: Chronic Qualifiers: Coronary Disease-Associated Artery/Lesion type: [place] artery [place] vs. transplanted heart: [place] heart Associated angina: without angina Qualified Code(s): I25.10 - Atherosclerotic heart disease of [place] coronary artery without angina pectoris (9) Pulmonary HTN Code(s): I27.20 - PULMONARY HYPERTENSION, UNSPECIFIED Status: Chronic (10) Anxiety Code(s): F41.9 - ANXIETY DISORDER, UNSPECIFIED Status: Chronic - Plan dc ceftriaxone has finished full course for uti -: one dose levemir 15u now and qam, plus 30hs -: urine output is good 1200ml, renal function is improving -: d/w , will hold further HD from now -: to amb [facility] * . Review of Systems - Medications/Allergies Allergies/Adverse Reactions: Allergies Allergy/AdvReac Type Severity Reaction Status Date / Time sulfamethoxazole Allergy Verified 06/20/17 04:07 [From Bactrim] trimethoprim [From Bactrim] Allergy Verified 06/20/17 04:07 promethazine [From Phenergan] AdvReac Intermediate Anxiety Verified 07/01/17 07: 39 Medications: Current Medications Acetaminophen (Tylenol) 650 mg PO Q4H PRN PRN Reason: Headache/Fever or Pain Last Admin: 07/06/17 09:24 Dose: 650 mg Alprazolam (Xanax) 0.5 mg PO TIDPRN PRN PRN Reason: Anxiety Last Admin: 07/07/17 09:18 Dose: 0.5 mg Aspirin (Ecotrin) 81 mg PO DAILY [facility] Last Admin: 07/06/17 09:19 Dose: 81 mg Atorvastatin Calcium (Lipitor) 10 mg PO HS [facility] Last Admin: 07/06/17 21:02 Dose: 10 mg Dextrose/Water (Dextrose 50%) 25 gm SLOW IVP PRN PRN PRN Reason: Hypoglycemia Last Admin: 07/01/17 06:24 Dose: 25 gm Gabapentin (Neurontin) 100 mg PO [facility] Last Admin: 07/06/17 21:02 Dose: 100 mg Glucagon (Glucagon) 1 mg IM PRN PRN PRN Reason: Hypoglycemia Guaifenesin (Mucinex) 1,200 mg PO Q12HR [facility] Last Admin: 07/06/17 21:01 Dose: 1,200 mg Heparin Sodium (Porcine) (Heparin) 5,000 units SC BID [facility] Last Admin: 07/06/17 21:03 Dose: 5,000 units Ceftriaxone Sodium 2 gm/ (Sodium Chloride) 100 mls @ 200 mls/hr IVPB Q24HR [facility] Last Admin: 07/06/17 14:06 Dose: 100 mls Dextrose/Water (D5w) 1,000 mls @ 0 mls/hr IV .Q0M PRN; As Directed PRN Reason: Hypoglycemia Last Admin: 06/30/17 14:22 Dose: 1,000 mls Insulin Detemir 30 units/ (Miscellaneous Medication) 0.3 mls @ 0 mls/hr SC [facility] Last Admin: 07/06/17 21:04 Dose: 0.3 mls Insulin Human Lispro (Humalog) 0 units SC .MILD SLIDING SCALE PRN PRN Reason: Mild Correctional Scale Last Admin: 07/07/17 06:08 Dose: 8 unit Insulin Human Lispro (Humalog) 0 units SC .BEDTIME SLIDING SC PRN PRN Reason: Bedtime Correctional Scale Last Admin: 07/05/17 21:09 Dose: 5 unit Melatonin (Melatonin) 3 mg PO HSPRN PRN PRN Reason: Insomnia Mineral Oil/White Petrolatum (Eucerin Cream) 0 gm TOP BIDPRN PRN PRN Reason: Dry Skin Mometasone Furoate/Formoterol Fumar (Dulera 200 Mcg/5 Mcg Inhaler) 1 puff INH BID-RT [facility] Last Admin: 07/07/17 09:15 Dose: Not Given Patient Home Med ( Macitentan [Opsumit] 10 Mg) 10 mg PO [facility] Last Admin: 07/06/17 21:15 Dose: Not Given Patient Home Med ( Tadalafil [Adcirca] 20 Mg) 20 mg PO [facility] Last Admin: 07/06/17 21:16 Dose: Not Given Ondansetron HCl (Zofran) 4 mg IVP Q6H PRN PRN Reason: Nausea/Vomiting Last Admin: 07/01/17 00:34 Dose: 4 mg Pantoprazole Sodium (Protonix) 40 mg PO DAILY [facility] Last Admin: 07/06/17 09:24 Dose: 40 mg Sodium Chloride (Flush - Normal Saline) 10 ml IVF Q12HR [facility] Last Admin: 07/06/17 21:03 Dose: 10 ml Sodium Chloride (Flush - Normal Saline) 10 ml IVF PRN PRN PRN Reason: Saline Flush Last Admin: 07/05/17 14:09 Dose: 10 ml Zolpidem Tartrate (Ambien) 5 mg PO HSPRN PRN PRN Reason: Insomnia
[2017-07-07] MEDS ORDERED: Digoxin 0.5 MG/2 ML AMP SLOW IVP SCH (13:15)
--- NOTE | 2017-07-07 13:36 | PRG ---
DATE OF SERVICE: 07/07/2017 SUBJECTIVE: Ms. Samson underwent hemodialysis this morning. She had 2 liters taken off. She is sleepy now. PHYSICAL EXAMINATION: VITAL SIGNS: Her blood pressure is variable. This morning at 4:00 a.m. it is 94/55, now most recent ly 194/94. Pulse 108. LUNGS: Clear. CARDIAC: Irregularly irregular with a systolic murmur as before. ABDOMEN: Soft, nontender. EXTREMITIES: Moderate edema. ASSESSMENT: 1. Pulmonary hypertension. 2. Chronic atrial fibrillation. 3. Renal failure. She has very labile blood pressure. PLAN: 1. Give her a single dose of Lasix tonight. 2. Digoxin x1 tonight. 3. Continue to follow. 4. The patient's long-term prognosis is still poor.
[2017-07-07] MEDS: Aspirin 81 mg Enteric Coated Tablet PO SCH (13:37)
[2017-07-07] MEDS: guaiFENesin ER 600 MG TAB PO SCH ×2 (13:37→21:00)
[2017-07-07] MEDS: Heparin 5,000 UNITS/ML VIAL SC SCH ×2 (13:38→21:00)
[2017-07-07] MEDS: Carvedilol 3.125 MG TAB PO SCH (17:00)
[2017-07-07] MEDS: Carvedilol 6.25 MG TAB PO SCH (18:39)
[2017-07-07] MEDS ORDERED: Furosemide 40 MG/4 ML VIAL SLOW IVP SCH (20:00)
[2017-07-07] MEDS: Atorvastatin Calcium 10 MG TAB PO SCH (21:00)
[2017-07-07] MEDS: Gabapentin 100 MG CAP PO SCH (21:00)
[2017-07-07] MEDS: Insulin Detemir 100 UNITS/ML 30 UNITS in Pre-Filled Syringe 1 EACH SC SCH (21:01)
[2017-07-07] MEDS: TADALAFIL 20 MG PO SCH (21:05)
[2017-07-07] MEDS: MACITENTAN 10 MG PO SCH (21:05)
[2017-07-08 05:35] LABS: Anion Gap 12 mmol/L (10-20); BUN (Urea Nitrogen) 24 mg/dL (9.8-20.1); Calc. Creatinine Clearance 39 mL/min (70-130); Calcium 8.8 mg/dL (7.8-10.44); Carbon Dioxide 27 mmol/L (23-31); Chloride 101 mmol/L (98-107); Estimated GFR-MDRD 34; Glucose 148 mg/dL (83-110); Potassium 3.5 mmol/L (3.5-5.1); Sodium 136 mmol/L (136-145)
[2017-07-08 05:37] LABS: Digoxin 0.66 ng/mL (0.8-2.0)
--- NOTE | 2017-07-08 06:02 | PRG ---
DATE OF SERVICE: 07/07/2017 SUBJECTIVE: The patient was seen and examined, noted with the following vital signs. PHYSICAL EXAMINATION: VITAL SIGNS: Afebrile. Temperature 97.9, pulse 98, respiratory rate 18, O2 sat 97%, blood pressure 148/66. HEENT: Unremarkable with moist oral mucosa. CARDIOVASCULAR: First and second heart sounds were heard. RESPIRATORY: Clear to auscultation. DIGESTIVE: Revealed a benign abdomen with positive bowel sounds. EXTREMITIES: No peripheral edema. IMPRESSION: 1. Acute on chronic kidney disease/acute tubular necrosis seems to be showing signs of improvement. 2. Sepsis, on treatment. 3. Hypovolemia. PLAN: 1. Patient to be dialyzed today with a low ultrafiltration. 2. We will continue to monitor this patient's renal function on daily basis. We will hold off on di alyzing this patient any further to watch out for possible renal recovery. 3. Renally dose all medications. 4. Avoid potentially nephrotoxic agents.
[2017-07-08] MEDS: Mometasone/Formoterol 120 PUFF INHALER INH SCH ×2 (07:32→19:44)
[2017-07-08] MEDS: Aspirin 81 mg Enteric Coated Tablet PO SCH (10:03)
[2017-07-08] MEDS: Carvedilol 3.125 MG TAB PO SCH ×2 (10:03→17:46)
[2017-07-08] MEDS: guaiFENesin ER 600 MG TAB PO SCH ×2 (10:15→21:28)
[2017-07-08] MEDS: Heparin 5,000 UNITS/ML VIAL SC SCH ×2 (10:15→21:28)
[2017-07-08] MEDS: Insulin Detemir 100 UNITS/ML 15 UNITS in Pre-Filled Syringe 1 EACH SC SCH (10:17)
--- NOTE | 2017-07-08 12:45 | PDOC.PN ---
- Subjective Encounter Start Date: 07/08/17 Encounter Start Time: 12:30 Subjective: f/u for FREYA on current HD but renal function improving. Pt feels better -: overall and appetite markedly improved. - Objective Resuscitation Status: Resuscitation Status FULL:Full Resuscitation MAR Reviewed: Yes Vital Signs & Weight: Vital Signs (12 hours) Temp Pulse Resp BP BP Pulse Ox 07/08/17 07:45 98.2 F 80 20 156/73 H 100 07/08/17 07:34 100 07/08/17 07:32 68 16 100 07/08/17 04:05 97 07/08/17 04:00 97.2 F L 80 18 169/77 H 99 Weight Admit Weight 155 lb 3.287 oz Weight 159 lb Most Recent Monitor Data Heart Rate from ECG 111 NIBP 105/58 NIBP BP-Mean 79 Respiration from ECG 18 SpO2 99 I&O: 07/07/17 07/08/17 07/09/17 06:59 06:59 06:59 Intake Total 1160 1200 Output Total 1270 1420 Balance -110 -220 Result Diagrams: 07/06/17 04:47 07/08/17 05:01 Additional Labs: Accuchecks 07/08/17 07/08/17 07/08/17 11:35 06:06 02:15 POC Glucose 234 H 129 H 154 H 07/07/17 07/07/17 07/07/17 20:16 16:49 12:12 POC Glucose 325 H 331 H 147 H Laboratory Tests 07/05/17 07/06/17 07/07/17 05:44 04:47 05:00 Creatinine 2.68 H 2.69 H 2.67 H Estimated GFR (MDRD) 17 18 EKG Reviewed by me: Yes (Tele - A-fib in 60's) Phys Exam - Physical Examination Constitutional: NAD alert, responsive HEENT: PERRLA, oral pharynx no lesions Neck: no JVD, supple Respiratory: no wheezing, clear to auscultation bilateral Cardiovascular: irregular Gastrointestinal: soft, non-tender, no distention, positive bowel sounds Musculoskeletal: pulses present, edema present Neurological: normal sensation, moves all 4 limbs Psychiatric: A&O x 3 Skin: normal turgor, cap refill <2 seconds Dx/Plan (1) Acute renal failure Status: Acute Comment: initiated on HD, renal function improving, follow trend , avoid nephrotoxic meds and contrast media (2) Anxiety Code(s): F41.9 - ANXIETY DISORDER, UNSPECIFIED Status: Chronic Comment: stable (3) Pulmonary HTN Code(s): I27.20 - PULMONARY HYPERTENSION, UNSPECIFIED Status: Chronic (4) Hyperkalemia Code(s): E87.5 - HYPERKALEMIA Status: Resolved (5) Metabolic acidosis Code(s): E87.2 - ACIDOSIS Status: Resolved (6) Sepsis Code(s): A41.9 - SEPSIS, UNSPECIFIED ORGANISM Status: Resolved Qualifiers: Sepsis type: sepsis due to unspecified organism Qualified Code(s): A41.9 - Sepsis, unspecified organism Comment: Resolved, completed Rocephin course (7) UTI (urinary tract infection) Status: Resolved Qualifiers: Urinary tract infection type: acute cystitis Hematuria presence: without hematuria Qualified Code(s): N30.00 - Acute cystitis without hematuria (8) Diabetes mellitus type II, uncontrolled Code(s): E11.65 - TYPE 2 DIABETES MELLITUS WITH HYPERGLYCEMIA Status: Chronic Comment: labile, holding Metformin and Amaryl, ISS, continue Levemir - Plan plan discussed w/ family, geriatric social work professor, out of bed/ambulate Stable currently -: Continue supportive measures -: Avoid nephrotoxic meds -: HD likely can be d/c'd if GFR trend continues -: AM lab: BMP * Likely home in 24h
[2017-07-08] MEDS: HumaLOG 300 UNITS/3 ML VIAL SC PRN ×3 (14:00→21:31)
--- NOTE | 2017-07-08 18:51 | PRG ---
DATE OF SERVICE: 07/08/2017 SUBJECTIVE: The patient was seen and examined, seems to be doing still much better. Noted with the following vital signs. OBJECTIVE: VITAL SIGNS: Afebrile with temperature 98.6, pulse 90, respiratory rate of 20, O2 sat of 98% with bl ood pressure 162/65. HEENT: Unremarkable with moist oral mucosa. No conjunctival injection or icterus. NECK: Supple CARDIOVASCULAR SYSTEM: First and second heart sounds were heard. RESPIRATORY SYSTEM: Clear to auscultation. DIGESTIVE SYSTEM: Revealed obese abdomen. EXTREMITIES: Showed some peripheral edema. NEUROLOGIC: Alert and oriented. No lateralizing signs. LYMPHATICS: No peripheral lymphadenopathy. IMPRESSION: 1. Acute tubular necrosis, which seems to be much improved. 2. Hypervolemia, will eventually be mobilized with improvement in the renal function. 3. Hypertension, suboptimally controlled. PLAN: 1. Hemodialysis is now being placed on hold. 2. Likely within the next 24 hours, we will remove the femoral dialysis catheter and continue to loki ally support the renal recovery of this patient. 3. Outpatient Nephrology followup was strongly recommended.
[2017-07-08] MEDS: Atorvastatin Calcium 10 MG TAB PO SCH (21:28)
[2017-07-08] MEDS: Gabapentin 100 MG CAP PO SCH (21:28)
[2017-07-08] MEDS: TADALAFIL 20 MG PO SCH (21:29)
[2017-07-08] MEDS: MACITENTAN 10 MG PO SCH (21:29)
[2017-07-08] MEDS: Insulin Detemir 100 UNITS/ML 30 UNITS in Pre-Filled Syringe 1 EACH SC SCH (21:29)
[2017-07-08] MEDS: ALPRAZolam 0.5 MG TAB PO PRN (21:29)
[2017-07-09 06:13] LABS: Anion Gap 12 mmol/L (10-20); BUN (Urea Nitrogen) 29 mg/dL (9.8-20.1); Calc. Creatinine Clearance 33 mL/min (70-130); Calcium 8.8 mg/dL (7.8-10.44); Carbon Dioxide 27 mmol/L (23-31); Chloride 103 mmol/L (98-107); Estimated GFR-MDRD 28; Glucose 175 mg/dL (83-110); Potassium 3.7 mmol/L (3.5-5.1); Sodium 138 mmol/L (136-145)
[2017-07-09] MEDS: Mometasone/Formoterol 120 PUFF INHALER INH SCH ×2 (06:55→19:45)
[2017-07-09] MEDS: Carvedilol 3.125 MG TAB PO SCH ×2 (08:54→17:10)
[2017-07-09] MEDS: Aspirin 81 mg Enteric Coated Tablet PO SCH (08:54)
[2017-07-09] MEDS: Insulin Detemir 100 UNITS/ML 15 UNITS in Pre-Filled Syringe 1 EACH SC SCH (08:55)
[2017-07-09] MEDS: guaiFENesin ER 600 MG TAB PO SCH ×2 (08:55→21:16)
[2017-07-09] MEDS: HumaLOG 300 UNITS/3 ML VIAL SC PRN ×3 (08:56→17:11)
[2017-07-09] MEDS: Heparin 5,000 UNITS/ML VIAL SC SCH ×2 (08:56→21:17)
--- NOTE | 2017-07-09 19:24 | PDOC.PN ---
- Subjective Encounter Start Date: 07/09/17 Encounter Start Time: 19:15 Subjective: f/u for FREYA on HD now d/c'd. Renal function recovering and likely will -: avoid outpt HD. Femoral HD cath removed today with hemorrhage and -: hematoma per nursing. - Objective Resuscitation Status: Resuscitation Status FULL:Full Resuscitation MAR Reviewed: Yes Vital Signs & Weight: Vital Signs (12 hours) Temp Pulse Pulse Pulse Resp BP BP 07/09/17 16:04 97.9 F 95 20 07/09/17 12:07 113 H 92 114/64 106/69 07/09/17 10:59 98.6 F 95 18 07/09/17 09:10 97.9 F 86 18 BP Pulse Ox Pulse Ox Pulse Ox 07/09/17 16:04 114/58 L 100 07/09/17 12:07 95 99 07/09/17 10:59 103/61 100 07/09/17 09:10 100 Weight Admit Weight 155 lb 3.287 oz Weight 157 lb 12.8 oz Most Recent Monitor Data Heart Rate from ECG 111 NIBP 105/58 NIBP BP-Mean 79 Respiration from ECG 18 SpO2 99 I&O: 07/08/17 07/09/17 07/10/17 06:59 06:59 06:59 Intake Total 1200 370 480 Output Total 1420 350 Balance -220 20 480 Result Diagrams: 07/06/17 04:47 07/09/17 05:21 Additional Labs: Accuchecks 07/09/17 07/09/17 07/09/17 16:46 10:59 06:07 POC Glucose 212 H 217 H 160 H 07/08/17 07/08/17 20:36 16:43 POC Glucose 310 H 296 H Laboratory Tests 07/05/17 07/06/17 07/07/17 05:44 04:47 05:00 Creatinine 2.68 H 2.69 H 2.67 H Estimated GFR (MDRD) 07/08/17 05:01 Creatinine 1.49 H Estimated GFR (MDRD) EKG Reviewed by me: Yes (Tele - A-fib in 60's) Phys Exam - Physical Examination Constitutional: NAD HEENT: PERRLA, oral pharynx no lesions Neck: no JVD, supple few basilar coarse sounds Respiratory: no wheezing Cardiovascular: irregular Gastrointestinal: soft, non-tender, no distention, positive bowel sounds R groin with pressure dressing in place, hemostatic Musculoskeletal: pulses present, edema present Neurological: normal sensation, moves all 4 limbs Psychiatric: A&O x 3 Skin: normal turgor, cap refill <2 seconds Dx/Plan (1) Acute renal failure Status: Acute Comment: initiated on HD, renal function improving, follow trend , avoid nephrotoxic meds and contrast media, appears renal function stabilizing without need for further HD (2) Anxiety Code(s): F41.9 - ANXIETY DISORDER, UNSPECIFIED Status: Chronic Comment: stable (3) Pulmonary HTN Code(s): I27.20 - PULMONARY HYPERTENSION, UNSPECIFIED Status: Chronic (4) Hyperkalemia Code(s): E87.5 - HYPERKALEMIA Status: Resolved (5) Metabolic acidosis Code(s): E87.2 - ACIDOSIS Status: Resolved (6) Sepsis Code(s): A41.9 - SEPSIS, UNSPECIFIED ORGANISM Status: Resolved Qualifiers: Sepsis type: sepsis due to unspecified organism Qualified Code(s): A41.9 - Sepsis, unspecified organism Comment: Resolved, completed Rocephin course (7) UTI (urinary tract infection) Status: Resolved Qualifiers: Urinary tract infection type: acute cystitis Hematuria presence: without hematuria Qualified Code(s): N30.00 - Acute cystitis without hematuria (8) Diabetes mellitus type II, uncontrolled Code(s): E11.65 - TYPE 2 DIABETES MELLITUS WITH HYPERGLYCEMIA Status: Chronic Comment: labile, holding Metformin and Amaryl, ISS, continue Levemir - Plan plan discussed w/ family, PT/OT, outreach and education social worker, out of bed/ambulate Stable overall -: Continue local pressure dressing on R groin -: Imodium prn diarrhea -: Robitussin DM q4h prn -: AM lab: BMP * Likely home in 24h
[2017-07-09] MEDS: Atorvastatin Calcium 10 MG TAB PO SCH (21:16)
[2017-07-09] MEDS: Gabapentin 100 MG CAP PO SCH (21:16)
[2017-07-09] MEDS: MACITENTAN 10 MG PO SCH (21:17)
[2017-07-09] MEDS: TADALAFIL 20 MG PO SCH (21:17)
[2017-07-09] MEDS: Insulin Detemir 100 UNITS/ML 30 UNITS in Pre-Filled Syringe 1 EACH SC SCH (21:18)
[2017-07-09] MEDS: Guaifenesin DM 100-10/5 ML UDCUP PO PRN (21:48)
[2017-07-09] MEDS: Acetaminophen 325 MG TAB PO PRN (21:49)
[2017-07-09] MEDS: ALPRAZolam 0.5 MG TAB PO PRN (23:00)
--- NOTE | 2017-07-10 06:34 | PRG ---
DATE OF SERVICE: 07/09/2017 SUBJECTIVE: The patient was seen and examined, noted with the following vital signs. PHYSICAL EXAMINATION: VITAL SIGNS: Afebrile. Temperature 98.1, pulse 88, respiratory rate 18, O2 saturation 97%, blood pr essure 118/59. HEENT: Unremarkable. No conjunctival injection or icterus. NECK: Supple. CARDIOVASCULAR: First and second heart sounds were heard. RESPIRATORY: Clear to auscultation. DIGESTIVE: Revealed a benign abdomen. EXTREMITIES: Showed improved peripheral edema. LABORATORY INVESTIGATIONS: Showed a creatinine of 1.8. IMPRESSION: 1. Acute tubular necrosis dependent on dialysis, but seems to have improved to the point of not bein g dependent on this modality of treatment any longer. 2. Hypertension. 3. Sepsis, much improved. PLAN: 1. Discontinue femoral dialysis catheter and discontinue hemodialysis. 2. Very close outpatient Nephrology followup strongly recommended. 3. Further management will be dependent on clinical course.
[2017-07-10 07:01] LABS: Anion Gap 13 mmol/L (10-20); BUN (Urea Nitrogen) 34 mg/dL (9.8-20.1); Calc. Creatinine Clearance 30 mL/min (70-130); Calcium 8.7 mg/dL (7.8-10.44); Carbon Dioxide 26 mmol/L (23-31); Chloride 102 mmol/L (98-107); Estimated GFR-MDRD 25; Glucose 211 mg/dL (83-110); Iron 29 ug/dL (50-170); Sodium 137 mmol/L (136-145)
[2017-07-10] MEDS: Mometasone/Formoterol 120 PUFF INHALER INH SCH ×2 (07:41→19:41)
[2017-07-10] MEDS: guaiFENesin ER 600 MG TAB PO SCH ×2 (09:09→21:27)
[2017-07-10] MEDS: Carvedilol 3.125 MG TAB PO SCH (09:09)
[2017-07-10] MEDS: Insulin Detemir 100 UNITS/ML 15 UNITS in Pre-Filled Syringe 1 EACH SC SCH (09:10)
[2017-07-10] MEDS: Aspirin 81 mg Enteric Coated Tablet PO SCH (09:10)
[2017-07-10] MEDS: Heparin 5,000 UNITS/ML VIAL SC SCH ×2 (09:10→21:34)
[2017-07-10] MEDS: HumaLOG 300 UNITS/3 ML VIAL SC PRN ×4 (09:10→21:28)
[2017-07-10] MEDS: Guaifenesin DM 100-10/5 ML UDCUP PO PRN ×2 (09:11→18:30)
[2017-07-10 09:22] LABS: #Eosinphils 0.5 thou/uL (0.0-0.7); #Lymphocytes 1.3 thou/uL (1.20-3.40); #Monocytes 1.2 thou/uL (0.11-0.59); #Neutrophils 9.1 thou/uL (1.40-6.50); %Basophils 0.3 % (0.0-1.0); %Eosinophils 4.3 % (0.0-10.0); %Lymphocytes 10.9 % (21.0-51.0); %Neutrophils 74.5 % (42.0-75.0); Hemoglobin 7.5 g/dL (12.0-16.0); Mean Corpuscular Volume 93.7 fl (81.0-99.0); Mean Platelet Volume 9.6 fL (7.4-10.4); Platelet Count 179 thou/uL (130-400); RBC Distribution Width 15.9 % (11.5-14.5); Red Blood Cell (RBC) Count 2.59 mill/uL (4.20-5.40); White Blood Cell (WBC) Count 12.2 thou/uL (4.8-10.8)
[2017-07-10] MEDS ORDERED: Furosemide 40 MG/4 ML VIAL SLOW IVP SCH ×2 (09:30→14:00)
--- NOTE | 2017-07-10 09:41 | RAD ---
CHEST 1 VIEW: Date: 07/10/17 HISTORY: Dyspnea. COMPARISON: Chest 1 view dated 07/02/17. FINDINGS: Heart size is enlarged. There is left atrial enlargement. There is a round density right lung base no t seen on the prior examination. Mild pulmonary venous congestion. Small volume fluid in the right mi nor fissure. IMPRESSION: 1. Cardiomegaly with small effusions. 2. Round density right lung base, not seen on prior examination and may represent an early infiltrat e. Follow up recommended. POS: [facility]
[2017-07-10] MEDS: Loperamide HCl 2 MG CAP PO PRN ×2 (09:44→18:30)
[2017-07-10] MEDS: Acetaminophen 325 MG TAB PO PRN (11:14)
[2017-07-10] MEDS ORDERED: Albumin 25% 25 GM/100 ML BOT IVPB SCH (12:15)
--- NOTE | 2017-07-10 12:17 | PDOC.PN ---
- Subjective Encounter Start Date: 07/10/17 Encounter Start Time: 12:05 Subjective: f/u for FREYA/CKD with short term HD. Dialysis catheter removed 07/09 with -: hemorrhage controlled with local pressure. Hgb 9 down to 7.5. Nsg reports -: hypotensive after given Lasix this am. Now receiving Albumin infusion. - Objective Resuscitation Status: Resuscitation Status FULL:Full Resuscitation MAR Reviewed: Yes Vital Signs & Weight: Vital Signs (12 hours) Temp Pulse Resp BP BP Pulse Ox 07/10/17 11:43 98.3 F 100 18 64/43 L 98 07/10/17 08:55 97.7 F 98 20 90/50 L 100 07/10/17 04:00 97.8 F 98 20 92/56 L 100 Weight Admit Weight 155 lb 3.287 oz Weight 157 lb 12.8 oz Most Recent Monitor Data Heart Rate from ECG 111 NIBP 105/58 NIBP BP-Mean 79 Respiration from ECG 18 SpO2 99 I&O: 07/09/17 07/10/17 07/11/17 06:59 06:59 06:59 Intake Total 370 720 360 Output Total 350 750 Balance 20 -30 360 Result Diagrams: 07/10/17 05:19 07/10/17 05:19 Additional Labs: Accuchecks 07/10/17 07/09/17 07/09/17 05:41 20:54 16:46 POC Glucose 219 H 241 H 212 H 07/09/17 07/08/17 10:59 16:43 POC Glucose 217 H 296 H Laboratory Tests 07/02/17 07/05/17 07/06/17 04:30 05:44 04:47 Hgb 10.0 L Creatinine 2.68 H 2.69 H Estimated GFR (MDRD) 17 Iron Ferritin 07/06/17 07/07/17 07/08/17 04:47 05:00 05:01 Hgb 9.4 L Creatinine 2.67 H 1.49 H Estimated GFR (MDRD) 18 Iron Ferritin 07/09/17 07/10/17 07/10/17 05:21 05:19 05:19 Hgb Creatinine 1.80 H Estimated GFR (MDRD) Iron 29 L Ferritin 43.40 Radiology Reviewed by me: Yes (PCXR - ? density in R lung base) EKG Reviewed by me: Yes (Tele - A-fib in 80's) Phys Exam - Physical Examination sleepy HEENT: PERRLA, oral pharynx no lesions Neck: no JVD, supple Respiratory: no wheezing, clear to auscultation bilateral Cardiovascular: irregular Gastrointestinal: soft, non-tender, no distention, positive bowel sounds Musculoskeletal: pulses present, edema present Neurological: moves all 4 limbs Psychiatric: A&O x 3 Skin: normal turgor, cap refill <2 seconds Dx/Plan (1) Hypotension Status: Acute Comment: Iatrogenic due to Lasix, Albumin infusion today, repeat H/H now, may need PRBC's if Hgb trend remains low (2) Acute renal failure Status: Acute Comment: initiated on HD, renal function improving, follow trend , avoid nephrotoxic meds and contrast media, appears renal function stabilizing without need for further HD, watch closely (3) Anxiety Code(s): F41.9 - ANXIETY DISORDER, UNSPECIFIED Status: Chronic Comment: stable (4) Pulmonary HTN Code(s): I27.20 - PULMONARY HYPERTENSION, UNSPECIFIED Status: Chronic (5) Hyperkalemia Code(s): E87.5 - HYPERKALEMIA Status: Resolved (6) Metabolic acidosis Code(s): E87.2 - ACIDOSIS Status: Resolved (7) Sepsis Code(s): A41.9 - SEPSIS, UNSPECIFIED ORGANISM Status: Resolved Qualifiers: Sepsis type: sepsis due to unspecified organism Qualified Code(s): A41.9 - Sepsis, unspecified organism Comment: Resolved, completed Rocephin course (8) UTI (urinary tract infection) Status: Resolved Qualifiers: Urinary tract infection type: acute cystitis Hematuria presence: without hematuria Qualified Code(s): N30.00 - Acute cystitis without hematuria (9) Diabetes mellitus type II, uncontrolled Code(s): E11.65 - TYPE 2 DIABETES MELLITUS WITH HYPERGLYCEMIA Status: Chronic Comment: labile, holding Metformin and Amaryl, ISS, continue Levemir (10) Acute blood loss anemia Code(s): D62 - ACUTE POSTHEMORRHAGIC ANEMIA Status: Acute Comment: Repeat H/ H now, consider PRBC's if trend remains low, no current active loss noted - Plan plan discussed w/ family, PT/OT, social media marketing manager, out of bed/ambulate, DVT proph w/SCDs Continue Albumin infusion today -: Repeat H/H now -: Consider PRBC's today -: Avoid antihypertensives -: AM lab: BMP, CBC * May need to consider SNF/Rehab options
[2017-07-10 13:06] LABS: Hemoglobin 7.4 g/dL (12.0-16.0); Platelet Count 167 thou/uL (130-400)
[2017-07-10] MEDS: Gabapentin 100 MG CAP PO SCH (21:27)
[2017-07-10] MEDS: Atorvastatin Calcium 10 MG TAB PO SCH (21:33)
[2017-07-10] MEDS: TADALAFIL 20 MG PO SCH (22:05)
[2017-07-10] MEDS: Insulin Detemir 100 UNITS/ML 30 UNITS in Pre-Filled Syringe 1 EACH SC SCH (22:05)
[2017-07-10] MEDS: MACITENTAN 10 MG PO SCH (22:05)
[2017-07-10] MEDS: ALPRAZolam 0.5 MG TAB PO PRN (22:58)
[2017-07-10] MEDS ORDERED: diphenhydrAMINE 50 MG/ML VIAL IVP SCH (23:45)
--- NOTE | 2017-07-10 23:58 | PRG ---
DATE OF SERVICE: 07/10/2017 PRIMARY CARE PHYSICIAN: João Cano M.D. SUBJECTIVE: Ms. Samson had a difficult day today as outlined in the chart. The patient had quite a bit of bleeding from the femoral venous access site. She is receiving packed red blood cells now. OBJECTIVE: VITAL SIGNS: Her blood pressure 92/52, pulse 84, irregular. LUNGS: Clear. CARDIAC: Irregularly regular. ASSESSMENT: 1. Pulmonary hypertension. 2. Renal failure. 3. Relatively low blood pressure. PLAN: She is receiving packed red blood cells, medicine for pulmonary hypertension still being given . Prognosis is guarded to poor. Dr. Hall will see the patient while I am gone The patient's [facility] care physician is Dr. João Cano.
[2017-07-11 03:00] LABS: Lavender RECEIVED; Red RECEIVED
--- NOTE | 2017-07-11 06:28 | PRG ---
DATE OF SERVICE: 07/10/2017 SUBJECTIVE: The patient was seen and examined today and noted with the following vital signs. PHYSICAL EXAMINATION: VITAL SIGNS: Afebrile with temperature 97.2, pulse 88, respiratory rate of 18, O2 sat 100%, blood pr essure 89/59 to 95/52. The patient noted to be obviously fluid overloaded, however does not want to . HEENT: . CARDIOVASCULAR SYSTEM: First and second heart sounds were heard. RESPIRATORY SYSTEM: Clear to auscultation. DIGESTIVE SYSTEM: Revealed an obese abdomen. EXTREMITIES: Showed 2 to 3+ bilateral lower extremity edema. SKIN EXAMINATION: No new gross rash. LYMPHATICS: No peripheral lymphadenopathy. LABORATORY INVESTIGATIONS: BUN 34 and creatinine of 1.35. IMPRESSION: 1. Dense acute tubular necrosis, has been on hemodialysis; however, I did make a decision to discont inue hemodialysis and then monitor the renal function closely. 2. Hypervolemia, patient required p.r.n. diuretics. 3. Further management will be dependent on the clinical course.
[2017-07-11 06:43] LABS: Hemoglobin 8.8 g/dL (12.0-16.0); Mean Corpuscular HGB CONC 32.4 g/dL (32.0-36.0); Mean Corpuscular Hemoglobin 30.1 pg (27.0-31.0); Mean Platelet Volume 9.5 fL (7.4-10.4); Platelet Count 179 thou/uL (130-400); RBC Distribution Width 15.3 % (11.5-14.5); Red Blood Cell (RBC) Count 2.92 mill/uL (4.20-5.40); White Blood Cell (WBC) Count 15.3 thou/uL (4.8-10.8)
[2017-07-11 07:02] LABS: Anion Gap 13 mmol/L (10-20); BUN (Urea Nitrogen) 36 mg/dL (9.8-20.1); Calc. Creatinine Clearance 28 mL/min (70-130); Calcium 9.2 mg/dL (7.8-10.44); Carbon Dioxide 26 mmol/L (23-31); Chloride 102 mmol/L (98-107); Estimated GFR-MDRD 23; Glucose 165 mg/dL (83-110); Potassium 4.1 mmol/L (3.5-5.1); Sodium 137 mmol/L (136-145)
[2017-07-11] MEDS: Mometasone/Formoterol 120 PUFF INHALER INH SCH ×2 (07:54→19:40)
[2017-07-11 07:56] LABS: Band 13 % (5-11); Eosinophils 6 % (0-10); Lymphocytes 14 % (21-51); MDiff Complete? YES; Monocytes 5 % (0-10); Neutrophil 61 % (42-75); Nucleated RBC 1 % (0); Polychromasia SLIGHT = 2-3 cells (100X) (0-2/hpf)
[2017-07-11] MEDS: Insulin Detemir 100 UNITS/ML 15 UNITS in Pre-Filled Syringe 1 EACH SC SCH (09:16)
[2017-07-11] MEDS: Aspirin 81 mg Enteric Coated Tablet PO SCH (09:17)
[2017-07-11] MEDS: guaiFENesin ER 600 MG TAB PO SCH ×2 (09:17→21:14)
[2017-07-11] MEDS: Acetaminophen 325 MG TAB PO PRN (09:17)
[2017-07-11] MEDS: Heparin 5,000 UNITS/ML VIAL SC SCH (09:18)
[2017-07-11] MEDS: Guaifenesin DM 100-10/5 ML UDCUP PO PRN ×2 (09:18→21:21)
[2017-07-11] MEDS: Eucerin (Mineral Oil/Petrolatum,White) 30 gm Jar TOP PRN (12:41)
[2017-07-11] MEDS: HumaLOG 300 UNITS/3 ML VIAL SC PRN ×2 (13:00→17:11)
--- NOTE | 2017-07-11 13:55 | PDOC.PN ---
- Subjective Encounter Start Date: 07/11/17 Encounter Start Time: 13:50 Subjective: f/u for hypotension after Lasix given. Also transfused 1u PRBC's and -: noted with mild reaction tx with Benadryl. - Objective Resuscitation Status: Resuscitation Status FULL:Full Resuscitation MAR Reviewed: Yes Vital Signs & Weight: Vital Signs (12 hours) Temp Pulse Resp BP BP Pulse Ox 07/11/17 11:10 97.6 F 122 H 19 103/55 L 96 07/11/17 09:15 98.6 F 127 H 16 97 07/11/17 08:15 98.6 F 127 H 16 94/57 L 97 07/11/17 04:00 98.2 F 114 H 20 134/86 94 L Weight Admit Weight 155 lb 3.287 oz Weight 157 lb 12.8 oz Most Recent Monitor Data Heart Rate from ECG 111 NIBP 105/58 NIBP BP-Mean 79 Respiration from ECG 18 SpO2 99 I&O: 07/10/17 07/11/17 07/12/17 06:59 06:59 06:59 Intake Total 1100 1980 Output Total 1450 1150 Balance -350 830 Result Diagrams: 07/11/17 02:53 07/11/17 02:53 Additional Labs: Accuchecks 07/11/17 07/11/17 07/10/17 11:49 05:17 20:38 POC Glucose 233 H 124 H 300 H 07/10/17 16:24 POC Glucose 243 H EKG Reviewed by me: Yes (Tele - sinus tach in 110's) Phys Exam - Physical Examination Constitutional: NAD HEENT: PERRLA, oral pharynx no lesions Neck: no JVD, supple diminished in bases tachycardic Cardiovascular: irregular Gastrointestinal: soft, non-tender, no distention, positive bowel sounds Musculoskeletal: pulses present, edema present Neurological: normal sensation, moves all 4 limbs Psychiatric: A&O x 3 Skin: normal turgor, cap refill <2 seconds Dx/Plan (1) Hypotension Status: Acute Comment: Iatrogenic due to Lasix, Albumin infusion today, s/p 1u PRBC's, Hgb 8.8, serial H/H, re-submit Urine/Blood/Stool cx, monitor for evidence of sepsis (2) Acute renal failure Status: Acute Comment: initiated on HD, renal function improving, follow trend , avoid nephrotoxic meds and contrast media, appears renal function stabilizing without need for further HD, watch closely (3) Anxiety Code(s): F41.9 - ANXIETY DISORDER, UNSPECIFIED Status: Chronic Comment: stable (4) Pulmonary HTN Code(s): I27.20 - PULMONARY HYPERTENSION, UNSPECIFIED Status: Chronic (5) Hyperkalemia Code(s): E87.5 - HYPERKALEMIA Status: Resolved (6) Metabolic acidosis Code(s): E87.2 - ACIDOSIS Status: Resolved (7) Sepsis Code(s): A41.9 - SEPSIS, UNSPECIFIED ORGANISM Status: Resolved Qualifiers: Sepsis type: sepsis due to unspecified organism Qualified Code(s): A41.9 - Sepsis, unspecified organism Comment: Resolved, ? recurrence with tachycardia, elevating WBC, lewis culture today, hold abx pending cx and clinical progression (8) UTI (urinary tract infection) Status: Resolved Qualifiers: Urinary tract infection type: acute cystitis Hematuria presence: without hematuria Qualified Code(s): N30.00 - Acute cystitis without hematuria (9) Diabetes mellitus type II, uncontrolled Code(s): E11.65 - TYPE 2 DIABETES MELLITUS WITH HYPERGLYCEMIA Status: Chronic Comment: labile, holding Metformin and Amaryl, ISS, continue Levemir (10) Acute blood loss anemia Code(s): D62 - ACUTE POSTHEMORRHAGIC ANEMIA Status: Acute Comment: Repeat H/ H now, consider PRBC's if trend remains low, no current active loss noted - Plan plan discussed w/ family, PT/OT, long term care social worker, respiratory therapy, out of bed/ambulate, DVT proph w/SCDs Continue supportive measures -: Lewis cultures today -: D/C Heparin -: Hold Lasix due to hypotension -: AM lab: BMP, CBC * .
[2017-07-11] MEDS: diphenhydrAMINE 25 MG CAP PO PRN ×2 (15:37→22:07)
[2017-07-11] MEDS: Atorvastatin Calcium 10 MG TAB PO SCH (21:09)
[2017-07-11] MEDS: Gabapentin 100 MG CAP PO SCH (21:10)
[2017-07-11] MEDS: MACITENTAN 10 MG PO SCH (21:10)
[2017-07-11] MEDS: Insulin Detemir 100 UNITS/ML 30 UNITS in Pre-Filled Syringe 1 EACH SC SCH (21:11)
[2017-07-11] MEDS: TADALAFIL 20 MG PO SCH (21:11)
[2017-07-11] MEDS: ALPRAZolam 0.5 MG TAB PO PRN (23:35)
[2017-07-12 06:08] LABS: Albumin 3.2 g/dL (3.4-4.8); Anion Gap 14 mmol/L (10-20); BUN (Urea Nitrogen) 34 mg/dL (9.8-20.1); Calc. Creatinine Clearance 30 mL/min (70-130); Calcium 8.7 mg/dL (7.8-10.44); Carbon Dioxide 21 mmol/L (23-31); Chloride 104 mmol/L (98-107); Estimated GFR-MDRD 25; Glucose 136 mg/dL (83-110); Potassium 4.2 mmol/L (3.5-5.1); Sodium 135 mmol/L (136-145)
[2017-07-12 06:57] LABS: Band 3 % (5-11); Eosinophils 3 % (0-10); Hemoglobin 8.4 g/dL (12.0-16.0); Lymphocytes 2 % (21-51); MDiff Complete? YES; Mean Corpuscular HGB CONC 32.2 g/dL (32.0-36.0); Mean Corpuscular Hemoglobin 30.3 pg (27.0-31.0); Mean Corpuscular Volume 94.1 fl (81.0-99.0); Mean Platelet Volume 8.7 fL (7.4-10.4); Monocytes 4 % (0-10); Neutrophil 88 % (42-75); Platelet Count 203 thou/uL (130-400); RBC Distribution Width 15.2 % (11.5-14.5); Red Blood Cell (RBC) Count 2.76 mill/uL (4.20-5.40); White Blood Cell (WBC) Count 20.4 thou/uL (4.8-10.8)
[2017-07-12] MEDS: Mometasone/Formoterol 120 PUFF INHALER INH SCH ×2 (07:20→20:59)
--- NOTE | 2017-07-12 09:08 | PRG ---
DATE OF SERVICE: 07/11/2017 SUBJECTIVE: This patient noted to have labile hemodynamics. OBJECTIVE: VITAL SIGNS: Afebrile with temperature 98.8, pulse 70-103, respiratory rate 18, O2 saturation 90%, b lood pressure 121/89. HEENT: Unremarkable. CARDIOVASCULAR: First and second heart sounds were heard. RESPIRATORY: Clear to auscultation anteriorly. DIGESTIVE: Revealed an obese abdomen. EXTREMITIES: Showed 2-3+ bilateral lower extremity edema. LYMPHATICS: No peripheral lymphadenopathy. NEUROLOGIC: Alert and oriented. No lateralizing sign. LABORATORY INVESTIGATION: Creatinine of 2.08, BUN of 36. IMPRESSION: 1. Acute on chronic kidney disease in the context of dense acute tubular necrosis, off hemodialysis. 2. Labile hemodynamics, query cause. Rule out recurrent sepsis. I doubt this has anything to do wi th Lasix given the fact that this patient does not respond well to diuretics. 3. Hypervolemia, very difficult to diurese. PLAN: 1. Hopefully, this patient will be able to avoid hemodialysis as the patient just came off hemodialy sis. 2. We will continue to monitor the renal function closely regarding hypervolemia and labile hemodyna mics. 3. Hemodynamic support with support of the blood transfusion. 4. Workup for recurrent sepsis recommended. 5. Further management to be dependent on the clinical course.
[2017-07-12] MEDS: Insulin Detemir 100 UNITS/ML 15 UNITS in Pre-Filled Syringe 1 EACH SC SCH (09:11)
[2017-07-12] MEDS: diphenhydrAMINE 25 MG CAP PO PRN ×2 (09:11→21:46)
[2017-07-12] MEDS: Aspirin 81 mg Enteric Coated Tablet PO SCH (09:11)
[2017-07-12] MEDS: Eucerin (Mineral Oil/Petrolatum,White) 30 gm Jar TOP PRN (09:12)
[2017-07-12] MEDS: guaiFENesin ER 600 MG TAB PO SCH ×2 (09:12→21:46)
--- NOTE | 2017-07-12 11:39 | PDOC.PN ---
- Subjective Encounter Start Date: 07/12/17 Encounter Start Time: 11:37 Subjective: Seen and examined -ill looking with extensive skin rashes - Objective Resuscitation Status: Resuscitation Status FULL:Full Resuscitation Vital Signs & Weight: Vital Signs (12 hours) Temp Pulse Resp BP Pulse Ox 07/12/17 09:05 97.4 F L 120 H 18 91/54 L 100 07/12/17 04:00 98.2 F 98 18 82/53 L 95 Weight Admit Weight 155 lb 3.287 oz Weight 157 lb 2 oz Most Recent Monitor Data Heart Rate from ECG 111 NIBP 105/58 NIBP BP-Mean 79 Respiration from ECG 18 SpO2 99 I&O: 07/11/17 07/12/17 07/13/17 06:59 06:59 06:59 Intake Total 1980 960 Output Total 1150 750 Balance 830 210 Result Diagrams: 07/12/17 05:07 07/12/17 05:07 Additional Labs: Accuchecks 07/12/17 07/11/17 07/11/17 06:15 20:53 16:31 POC Glucose 127 H 270 H 315 H 07/11/17 07/11/17 07/10/17 11:49 05:17 20:38 POC Glucose 233 H 124 H 300 H Phys Exam - Physical Examination Constitutional: NAD HEENT: PERRLA, moist MMs, sclera anicteric, TM's clear Neck: no nodes, no JVD, supple, full ROM Respiratory: no wheezing, no rales, no rhonchi, clear to auscultation bilateral Cardiovascular: RRR, no significant murmur, no rub Gastrointestinal: soft, non-tender, positive bowel sounds obese abdomen Musculoskeletal: pulses present, edema present Neurological: normal sensation, moves all 4 limbs Deviation from normal: Erythematous rashes all over s/p blood transfusion Dx/Plan (1) Acute blood loss anemia Code(s): D62 - ACUTE POSTHEMORRHAGIC ANEMIA Status: Acute Comment: Repeat H/ H now, consider PRBC's if trend remains low, no current active loss noted (2) Acute renal failure Status: Acute Comment: initiated on HD, renal function improving, follow trend , avoid nephrotoxic meds and contrast media, appears renal function stabilizing without need for further HD, watch closely (3) Hypotension Status: Acute Comment: Iatrogenic due to Lasix, Albumin infusion today, s/p 1u PRBC's, Hgb 8.8, serial H/H, re-submit Urine/Blood/Stool cx, monitor for evidence of sepsis (4) Anxiety Code(s): F41.9 - ANXIETY DISORDER, UNSPECIFIED Status: Chronic Comment: stable (5) Diabetes mellitus type II, uncontrolled Code(s): E11.65 - TYPE 2 DIABETES MELLITUS WITH HYPERGLYCEMIA Status: Chronic Comment: labile, holding Metformin and Amaryl, ISS, continue Levemir (6) Pulmonary HTN Code(s): I27.20 - PULMONARY HYPERTENSION, UNSPECIFIED Status: Chronic (7) Hypovolemic shock Code(s): R57.1 - HYPOVOLEMIC SHOCK Status: Resolved (8) UTI (urinary tract infection) Status: Resolved Qualifiers: Urinary tract infection type: acute cystitis Hematuria presence: without hematuria Qualified Code(s): N30.00 - Acute cystitis without hematuria (9) Atrial fibrillation Code(s): I48.91 - UNSPECIFIED ATRIAL FIBRILLATION Status: Chronic Qualifiers: Atrial fibrillation type: chronic Qualified Code(s): I48.2 - Chronic atrial fibrillation (10) Transfusion reaction Code(s): T80.92XA - UNSPECIFIED TRANSFUSION REACTION, INITIAL ENCOUNTER Status : Acute (11) Sepsis Code(s): A41.9 - SEPSIS, UNSPECIFIED ORGANISM Status: Acute - Plan plan discussed w/ family, torres catheter, PT/OT, nursing home social worker, respiratory therapy tachyarythmia--defer to cardiology -: cautious diuresis--on hold for now -: Start steroids to address the transfusion itchy reaction/rashes -: D/c torres and reculture the urine -resume antibiotics pending culture resul * .
[2017-07-12] MEDS ORDERED: Digoxin 0.5 MG/2 ML AMP SLOW IVP SCH ×2 (11:45→14:45)
[2017-07-12] MEDS ORDERED: cefTRIAXone\\ROCEPHIN 1 GM in Sodium Chloride 0.9% 100 ML IVPB SCH (12:15)
[2017-07-12] MEDS: HumaLOG 300 UNITS/3 ML VIAL SC PRN ×3 (12:34→21:49)
[2017-07-12] MEDS: Ciprofloxacin Lactate/D5W 200 MG in Premix Bag 1 BAG IVPB SCH (13:46)
[2017-07-12] MEDS: ALPRAZolam 0.5 MG TAB PO PRN ×2 (13:50→22:46)
[2017-07-12] MEDS ORDERED: cefTRIAXone\\ROCEPHIN 1 GM, Syringe 0.4 ML in Sterile Water 9.6 ML SLOW IVP SCH (14:00)
[2017-07-12] MEDS: Hydrocortisone Sod Succ/PF 100 mg/2 ml Vial IVP SCH ×2 (14:51→21:49)
[2017-07-12] MEDS: Gabapentin 100 MG CAP PO SCH (21:46)
[2017-07-12] MEDS: MACITENTAN 10 MG PO SCH (21:46)
[2017-07-12] MEDS: TADALAFIL 20 MG PO SCH (21:46)
[2017-07-12] MEDS: Atorvastatin Calcium 10 MG TAB PO SCH (21:47)
[2017-07-12] MEDS: Insulin Detemir 100 UNITS/ML 30 UNITS in Pre-Filled Syringe 1 EACH SC SCH (21:47)
[2017-07-13] MEDS: Ciprofloxacin Lactate/D5W 200 MG in Premix Bag 1 BAG IVPB SCH ×2 (01:28→12:48)
[2017-07-13] MEDS: hydrOXYzine 25 MG TAB PO PRN ×2 (01:29→21:12)
[2017-07-13] MEDS: Hydrocortisone Sod Succ/PF 100 mg/2 ml Vial IVP SCH ×3 (05:43→22:08)
[2017-07-13] MEDS: HumaLOG 300 UNITS/3 ML VIAL SC PRN ×4 (06:19→21:19)
[2017-07-13 06:24] LABS: Albumin 3.4 g/dL (3.4-4.8); Anion Gap 16 mmol/L (10-20); BUN (Urea Nitrogen) 39 mg/dL (9.8-20.1); BUN/Creatinine Ratio 17.57; Calc. Creatinine Clearance 26 mL/min (70-130); Calcium 8.9 mg/dL (7.8-10.44); Carbon Dioxide 22 mmol/L (23-31); Chloride 100 mmol/L (98-107); Estimated GFR-MDRD 22; Glucose 450 mg/dL (83-110); Phosphorus 3.8 mg/dL (2.3-4.7); Potassium 4.7 mmol/L (3.5-5.1); Sodium 133 mmol/L (136-145)
[2017-07-13 06:29] LABS: Band 5 % (5-11); Hemoglobin 8.3 g/dL (12.0-16.0); Lymphocytes 5 % (21-51); MDiff Complete? YES; Mean Corpuscular HGB CONC 32.4 g/dL (32.0-36.0); Mean Corpuscular Hemoglobin 30.2 pg (27.0-31.0); Mean Platelet Volume 8.8 fL (7.4-10.4); Monocytes 1 % (0-10); Neutrophil 89 % (42-75); Platelet Count 222 thou/uL (130-400); RBC Distribution Width 15.3 % (11.5-14.5); Red Blood Cell (RBC) Count 2.73 mill/uL (4.20-5.40)
[2017-07-13] MEDS: Mometasone/Formoterol 120 PUFF INHALER INH SCH ×2 (08:14→21:41)
[2017-07-13] MEDS: Rivaroxaban 15 MG TAB PO SCH (09:18)
[2017-07-13] MEDS: guaiFENesin ER 600 MG TAB PO SCH ×2 (09:19→21:11)
[2017-07-13] MEDS: Aspirin 81 mg Enteric Coated Tablet PO SCH (09:19)
[2017-07-13] MEDS: Digoxin 0.5 MG/2 ML AMP SLOW IVP SCH (09:20)
[2017-07-13] MEDS: Insulin Detemir 100 UNITS/ML 15 UNITS in Pre-Filled Syringe 1 EACH SC SCH (09:28)
--- NOTE | 2017-07-13 10:38 | PRG ---
DATE OF SERVICE: 07/13/2017 SUBJECTIVE: The patient was seen and examined today, undergoing physical therapy and noted with the following vital signs. OBJECTIVE: VITAL SIGNS: Afebrile with temperature 97.5, pulse 98, respiratory rate 18, O2 saturation 98% on 2 l iters, blood pressure 106/52 to 130/56. HEENT: Unremarkable. CARDIOVASCULAR SYSTEM: First and second heart sounds were heard. RESPIRATORY SYSTEM: Clear to auscultation anteriorly. DIGESTIVE SYSTEM: Revealed an obese abdomen. EXTREMITIES: Showed 2+ bilateral lower extremity edema. LABORATORY INVESTIGATION: Showed white count 25,000, hemoglobin 8.3, creatinine of 2.22 with BUN of 39, blood sugar of 450. Urine cultures significant for heavy growth of yeast. IMPRESSION: 1. Acute tubular necrosis, off hemodialysis. 2. Urinary tract infection - bacterial, now has a fungal infection in addition. 3. Hypervolemia. 4. Labile hemodynamics. PLAN: 1. The patient is to start low dose antifungal renally dosed. 2. We will begin to deescalate the antibiotics treatment. 3. The patient is on steroids for blood transfusion reaction as well as support the hemodynamics. 4. Once the patient's hemodynamics stabilizes, we will attempt diuresis. 5. Further management to be dependent on the clinical course.
--- NOTE | 2017-07-13 11:02 | PDOC.PN ---
- Subjective Encounter Start Date: 07/13/17 Encounter Start Time: 11:00 Subjective: f/u for FREYA/CKD and recent sepsis with UTI. Protracted hospital course with -: transfusion rxn after 1u PRBC's. Now with candiduria on Fluconazole. -: Hypotension improved. - Objective Resuscitation Status: Resuscitation Status FULL:Full Resuscitation MAR Reviewed: Yes Vital Signs & Weight: Vital Signs (12 hours) Temp Pulse Pulse Pulse Pulse Resp BP 07/13/17 09:46 113 H 96 109 H 125/61 07/13/17 09:20 95 07/13/17 08:14 88 18 07/13/17 04:00 97.5 F L 98 18 07/13/17 02:56 BP BP BP Pulse Ox Pulse Ox Pulse Ox 07/13/17 09:46 106/50 L 130/58 L 92 L 93 L 07/13/17 09:20 07/13/17 08:14 97 07/13/17 04:00 113/58 L 98 07/13/17 02:56 96 Weight Admit Weight 155 lb 3.287 oz Weight 157 lb 6 oz Most Recent Monitor Data Heart Rate from ECG 111 NIBP 105/58 NIBP BP-Mean 79 Respiration from ECG 18 SpO2 99 I&O: 07/12/17 07/13/17 07/14/17 06:59 06:59 06:59 Intake Total 960 840 Output Total 750 1325 Balance 210 -485 Result Diagrams: 07/13/17 05:36 07/13/17 05:36 Additional Labs: Accuchecks 07/13/17 07/12/17 07/12/17 06:13 21:15 17:42 POC Glucose 407 H 384 H 236 H 07/12/17 12:10 POC Glucose 299 H Microbiology 07/12/17 06:15 Stool Escherichia coli 0157 Culture - Final 07/12/17 06:15 Stool Campylobacter Antigen Assay - Final 07/12/17 06:15 Stool Shiga Toxin Test - Final 07/12/17 06:15 Stool C. difficile GDH Antigen & Toxins - Final 07/12/17 06:15 Stool Stool Culture - Preliminary Yeast species 07/11/17 17:30 Urine torres catheter Urine Culture - Preliminary Yeast species Laboratory Tests 07/02/17 07/05/17 07/06/17 04:30 05:44 04:47 WBC Hgb 10.0 L Creatinine 2.68 H 2.69 H Estimated GFR (MDRD) 17 Iron Ferritin 07/06/17 07/07/17 07/08/17 04:47 05:00 05:01 WBC Hgb 9.4 L Creatinine 2.67 H 1.49 H Estimated GFR (MDRD) 18 Iron Ferritin 07/09/17 07/10/17 07/10/17 05:21 05:19 05:19 WBC Hgb Creatinine 1.80 H Estimated GFR (MDRD) Iron 29 L Ferritin 43.40 07/11/17 07/11/17 07/12/17 02:53 02:53 05:07 WBC 15.3 H Hgb Creatinine 2.08 H 1.97 H Estimated GFR (MDRD) Iron Ferritin 07/12/17 05:07 WBC 20.4 H Hgb Creatinine Estimated GFR (MDRD) Iron Ferritin EKG Reviewed by me: Yes (Tele - A-fib in 80's) Phys Exam - Physical Examination sleepy, responds to questions HEENT: PERRLA, oral pharynx no lesions Neck: no JVD, supple diminished in bases, few wheezes Cardiovascular: irregular Gastrointestinal: soft, non-tender, no distention, positive bowel sounds Musculoskeletal: pulses present, edema present Neurological: normal sensation, moves all 4 limbs Psychiatric: A&O x 3 Deviation from normal: erythematous patches on chest Skin: normal turgor, cap refill <2 seconds Dx/Plan (1) Hypotension Status: Acute Comment: Iatrogenic due to Lasix, Albumin infusion today, s/p 1u PRBC's, Hgb 8.8, serial H/H, re-submit Urine/Blood/Stool cx, monitor for evidence of sepsis, improved overall (2) Acute renal failure Status: Acute Comment: initiated on HD, renal function improving, follow trend , avoid nephrotoxic meds and contrast media, appears renal function stabilizing without need for further HD, watch closely (3) Anxiety Code(s): F41.9 - ANXIETY DISORDER, UNSPECIFIED Status: Chronic Comment: stable (4) Pulmonary HTN Code(s): I27.20 - PULMONARY HYPERTENSION, UNSPECIFIED Status: Chronic Comment: Severe, continue Tadalifil (5) Hyperkalemia Code(s): E87.5 - HYPERKALEMIA Status: Resolved (6) Metabolic acidosis Code(s): E87.2 - ACIDOSIS Status: Resolved (7) Sepsis Code(s): A41.9 - SEPSIS, UNSPECIFIED ORGANISM Status: Resolved Qualifiers: Sepsis type: sepsis due to unspecified organism Qualified Code(s): A41.9 - Sepsis, unspecified organism Comment: Resolved, ? recurrence with tachycardia, elevating WBC, lewis culture today, hold abx pending cx and clinical progression, empiric Cipro (8) UTI (urinary tract infection) Status: Resolved Qualifiers: Urinary tract infection type: acute cystitis Hematuria presence: without hematuria Qualified Code(s): N30.00 - Acute cystitis without hematuria Comment: Appears clinically candiduria, continue Fluconazole (9) Diabetes mellitus type II, uncontrolled Code(s): E11.65 - TYPE 2 DIABETES MELLITUS WITH HYPERGLYCEMIA Status: Chronic Comment: labile, holding Metformin and Amaryl, ISS, continue Levemir (10) Acute blood loss anemia Code(s): D62 - ACUTE POSTHEMORRHAGIC ANEMIA Status: Acute Comment: Consider PRBC's if trend remains low, no current active loss noted (11) Candiduria Code(s): B37.49 - OTHER UROGENITAL CANDIDIASIS Status: Acute Comment: See above - Plan plan discussed w/ family, continue antibiotics, PT/OT, social work coordinator, respiratory therapy, out of bed/ambulate, DVT proph w/SCDs Stable overall -: OOB/ambulate with assist -: Continue Fluconazole -: Continue Ciprofloxacin -: De-escalate Hydrocortisone 50mg IV q8h * Benadryl prn for rash/pruritus * AM lab: BMP, CBC
[2017-07-13] MEDS: Acetaminophen 325 MG TAB PO PRN (19:28)
[2017-07-13] MEDS: Atorvastatin Calcium 10 MG TAB PO SCH (21:11)
[2017-07-13] MEDS: MACITENTAN 10 MG PO SCH (21:11)
[2017-07-13] MEDS: Gabapentin 100 MG CAP PO SCH (21:12)
[2017-07-13] MEDS: TADALAFIL 20 MG PO SCH (21:12)
[2017-07-13] MEDS: Insulin Detemir 100 UNITS/ML 30 UNITS in Pre-Filled Syringe 1 EACH SC SCH (21:18)
[2017-07-13] MEDS ORDERED: HumaLOG 300 UNITS/3 ML VIAL SC SCH (23:00)
[2017-07-13] MEDS: ALPRAZolam 0.5 MG TAB PO PRN (23:07)
[2017-07-14] MEDS: Ciprofloxacin Lactate/D5W 200 MG in Premix Bag 1 BAG IVPB SCH ×2 (01:02→12:57)
[2017-07-14 06:04] LABS: Anion Gap 17 mmol/L (10-20); BUN (Urea Nitrogen) 45 mg/dL (9.8-20.1); Calc. Creatinine Clearance 27 mL/min (70-130); Calcium 9.5 mg/dL (7.8-10.44); Carbon Dioxide 20 mmol/L (23-31); Chloride 101 mmol/L (98-107); Estimated GFR-MDRD 22; Glucose 281 mg/dL (83-110); Potassium 4.4 mmol/L (3.5-5.1); Sodium 134 mmol/L (136-145)
[2017-07-14] MEDS: Hydrocortisone Sod Succ/PF 100 mg/2 ml Vial IVP SCH ×2 (06:39→12:56)
[2017-07-14 07:44] LABS: Band 5 % (5-11); Hemoglobin 8.5 g/dL (12.0-16.0); Lymphocytes 3 % (21-51); MDiff Complete? YES; Mean Corpuscular HGB CONC 31.8 g/dL (32.0-36.0); Mean Corpuscular Hemoglobin 29.8 pg (27.0-31.0); Mean Corpuscular Volume 93.6 fl (81.0-99.0); Mean Platelet Volume 9.2 fL (7.4-10.4); Monocytes 3 % (0-10); Neutrophil 89 % (42-75); Platelet Count 233 thou/uL (130-400); RBC Distribution Width 15.3 % (11.5-14.5); Red Blood Cell (RBC) Count 2.83 mill/uL (4.20-5.40); White Blood Cell (WBC) Count 24.4 thou/uL (4.8-10.8)
[2017-07-14] MEDS: Mometasone/Formoterol 120 PUFF INHALER INH SCH ×2 (08:02→19:41)
[2017-07-14] MEDS: guaiFENesin ER 600 MG TAB PO SCH ×2 (08:33→22:01)
[2017-07-14] MEDS: Rivaroxaban 15 MG TAB PO SCH (08:33)
[2017-07-14] MEDS: Fluconazole 100 MG TAB PO SCH (08:33)
[2017-07-14] MEDS: Aspirin 81 mg Enteric Coated Tablet PO SCH (08:33)
[2017-07-14] MEDS: Digoxin 0.5 MG/2 ML AMP SLOW IVP SCH (08:34)
[2017-07-14] MEDS: Insulin Detemir 100 UNITS/ML 15 UNITS in Pre-Filled Syringe 1 EACH SC SCH (08:35)
[2017-07-14] MEDS: Acetaminophen 325 MG TAB PO PRN ×2 (11:15→20:29)
[2017-07-14] MEDS: HumaLOG 300 UNITS/3 ML VIAL SC PRN ×2 (12:56→17:12)
--- NOTE | 2017-07-14 16:00 | PDOC.PN ---
- Subjective Encounter Start Date: 07/14/17 Encounter Start Time: 15:45 Subjective: f/u for recent sepsis and UTI. s/p 1u PRBC's and transfusion rxn with skin -: rash. Overall feels better. Renal function stabilizing currently with creat -: near 2.0 range. - Objective Resuscitation Status: Resuscitation Status FULL:Full Resuscitation MAR Reviewed: Yes Vital Signs & Weight: Vital Signs (12 hours) Temp Pulse Pulse Pulse Resp BP BP 07/14/17 12:45 108 H 107 H 102/56 L 93/46 L 07/14/17 12:33 97.6 F 94 20 07/14/17 08:45 97.7 F 98 18 07/14/17 08:35 97.7 F 98 18 07/14/17 08:34 98 07/14/17 08:02 98 16 07/14/17 07:55 07/14/17 04:00 97.4 F L 99 20 BP Pulse Ox Pulse Ox Pulse Ox 07/14/17 12:45 95 92 L 07/14/17 12:33 95/50 L 92 L 07/14/17 08:45 99 07/14/17 08:35 112/57 L 99 07/14/17 08:34 07/14/17 08:02 100 07/14/17 07:55 100 07/14/17 04:00 104/57 L 92 L Weight Admit Weight 155 lb 3.287 oz Weight 158 lb 5 oz Most Recent Monitor Data Heart Rate from ECG 111 NIBP 105/58 NIBP BP-Mean 79 Respiration from ECG 18 SpO2 99 I&O: 07/13/17 07/14/17 07/15/17 06:59 06:59 06:59 Intake Total 840 750 Output Total 1325 200 Balance -485 550 Result Diagrams: 07/14/17 05:09 07/14/17 05:09 Additional Labs: Accuchecks 07/14/17 07/14/17 07/13/17 11:06 06:25 21:00 POC Glucose 324 H 250 H 514 H 07/13/17 07/13/17 17:09 11:36 POC Glucose 471 H 470 H Microbiology 07/12/17 06:15 Stool Escherichia coli 0157 Culture - Final 07/12/17 06:15 Stool Campylobacter Antigen Assay - Final 07/12/17 06:15 Stool Shiga Toxin Test - Final 07/12/17 06:15 Stool C. difficile GDH Antigen & Toxins - Final 07/12/17 06:15 Stool Stool Culture - Preliminary Yeast species 07/11/17 17:30 Urine torres catheter Urine Culture - Preliminary Yeast species Laboratory Tests 07/02/17 07/05/17 07/06/17 04:30 05:44 04:47 WBC Hgb 10.0 L Creatinine 2.68 H 2.69 H Estimated GFR (MDRD) 17 Iron Ferritin 07/06/17 07/07/17 07/08/17 04:47 05:00 05:01 WBC Hgb 9.4 L Creatinine 2.67 H 1.49 H Estimated GFR (MDRD) 18 Iron Ferritin 07/09/17 07/10/17 07/10/17 05:21 05:19 05:19 WBC Hgb Creatinine 1.80 H Estimated GFR (MDRD) Iron 29 L Ferritin 43.40 07/11/17 07/11/17 07/12/17 02:53 02:53 05:07 WBC 15.3 H Hgb Creatinine 2.08 H 1.97 H Estimated GFR (MDRD) Iron Ferritin 07/12/17 05:07 WBC 20.4 H Hgb Creatinine Estimated GFR (MDRD) Iron Ferritin EKG Reviewed by me: Yes (Tele - A-fib in 's) Phys Exam - Physical Examination Constitutional: NAD HEENT: PERRLA, oral pharynx no lesions Neck: no JVD, supple diminished in bases Respiratory: no wheezing Cardiovascular: irregular Gastrointestinal: soft, non-tender, no distention, positive bowel sounds Musculoskeletal: pulses present, edema present Neurological: normal sensation, moves all 4 limbs Psychiatric: A&O x 3 Skin: normal turgor, cap refill <2 seconds Dx/Plan (1) Hypotension Status: Acute Comment: Iatrogenic due to Lasix, Albumin infusion today, s/p 1u PRBC's, Hgb 8.8, serial H/H, re-submit Urine/Blood/Stool cx, monitor for evidence of sepsis, improved overall (2) Acute renal failure Status: Acute Comment: initiated on HD, renal function improving, follow trend , avoid nephrotoxic meds and contrast media, appears renal function stabilizing without need for further HD, watch closely (3) Anxiety Code(s): F41.9 - ANXIETY DISORDER, UNSPECIFIED Status: Chronic Comment: stable (4) Pulmonary HTN Code(s): I27.20 - PULMONARY HYPERTENSION, UNSPECIFIED Status: Chronic Comment: Severe, continue Tadalifil (5) Hyperkalemia Code(s): E87.5 - HYPERKALEMIA Status: Resolved (6) Metabolic acidosis Code(s): E87.2 - ACIDOSIS Status: Resolved (7) Sepsis Code(s): A41.9 - SEPSIS, UNSPECIFIED ORGANISM Status: Resolved Qualifiers: Sepsis type: sepsis due to unspecified organism Qualified Code(s): A41.9 - Sepsis, unspecified organism Comment: Resolved, ? recurrence with tachycardia, elevating WBC, lewis culture today, empiric Cipro (8) UTI (urinary tract infection) Status: Resolved Qualifiers: Urinary tract infection type: acute cystitis Hematuria presence: without hematuria Qualified Code(s): N30.00 - Acute cystitis without hematuria Comment: Appears clinically candiduria, continue Fluconazole (9) Diabetes mellitus type II, uncontrolled Code(s): E11.65 - TYPE 2 DIABETES MELLITUS WITH HYPERGLYCEMIA Status: Chronic Comment: labile, holding Metformin and Amaryl, ISS, continue Levemir (10) Acute blood loss anemia Code(s): D62 - ACUTE POSTHEMORRHAGIC ANEMIA Status: Acute Comment: Consider PRBC's if trend remains low, no current active loss noted (11) Candiduria Code(s): B37.49 - OTHER UROGENITAL CANDIDIASIS Status: Acute Comment: See above - Plan plan discussed w/ family, continue antibiotics, PT/OT, hospice social worker, respiratory therapy, out of bed/ambulate Stable overall -: D/C Hydrocortisone -: Continue O2 to maintain O2 sats>90% -: Continue Diflucan -: CM for rehab/SNF options * AM lab: BMP, CBC
[2017-07-14] MEDS: Insulin Detemir 100 UNITS/ML 30 UNITS in Pre-Filled Syringe 1 EACH SC SCH (22:00)
[2017-07-14] MEDS: Atorvastatin Calcium 10 MG TAB PO SCH (22:01)
[2017-07-14] MEDS: MACITENTAN 10 MG PO SCH (22:01)
[2017-07-14] MEDS: TADALAFIL 20 MG PO SCH (22:01)
[2017-07-14] MEDS: ALPRAZolam 0.5 MG TAB PO PRN (22:01)
[2017-07-14] MEDS: Gabapentin 100 MG CAP PO SCH (22:01)
[2017-07-14] MEDS ORDERED: Furosemide 40 MG/4 ML VIAL ONE (22:57)
[2017-07-14] MEDS ORDERED: Albuterol Sulfate 2.5 mg/3 ml Neb NEB PRN (23:18)
--- NOTE | 2017-07-14 23:34 | RAD ---
SEMI UPRIGHT PORTABLE CHEST: History: 72-year-old female with shortness of breath and wheezing. FINDINGS: There is cardiomegaly with some increased linear interstitial markings noted bilaterally which appear stable. Appearance is stable from 12-21-17. IMPRESSION: Stable cardiomegaly and minimal chronic changes. No confluent pneumonia, overt edema, or pleural effu rachael or other acute process. POS: [facility]
[2017-07-15 00:27] LABS: Anion Gap 15 mmol/L (10-20); BUN (Urea Nitrogen) 47 mg/dL (9.8-20.1); Calc. Creatinine Clearance 26 mL/min (70-130); Carbon Dioxide 22 mmol/L (23-31); Chloride 102 mmol/L (98-107); Estimated GFR-MDRD 21; Sodium 135 mmol/L (136-145)
[2017-07-15 00:28] LABS: Calcium 8.7 mg/dL (7.8-10.44); Glucose 194 mg/dL (83-110); Magnesium 1.4 mg/dL (1.6-2.6)
[2017-07-15] MEDS: Ciprofloxacin Lactate/D5W 200 MG in Premix Bag 1 BAG IVPB SCH ×2 (03:38→12:38)
[2017-07-15] MEDS: Acetaminophen 325 MG TAB PO PRN ×2 (04:28→12:43)
[2017-07-15 06:49] LABS: Anion Gap 16 mmol/L (10-20); BUN (Urea Nitrogen) 50 mg/dL (9.8-20.1); Calc. Creatinine Clearance 28 mL/min (70-130); Carbon Dioxide 23 mmol/L (23-31); Chloride 101 mmol/L (98-107); Estimated GFR-MDRD 22; Glucose 187 mg/dL (83-110); Potassium 4.1 mmol/L (3.5-5.1); Sodium 136 mmol/L (136-145)
[2017-07-15] MEDS: Mometasone/Formoterol 120 PUFF INHALER INH SCH ×2 (08:15→18:58)
[2017-07-15] MEDS: Insulin Detemir 100 UNITS/ML 15 UNITS in Pre-Filled Syringe 1 EACH SC SCH (09:29)
[2017-07-15] MEDS: Fluconazole 100 MG TAB PO SCH (09:30)
[2017-07-15] MEDS: Digoxin 0.125 MG TAB PO SCH (09:30)
[2017-07-15] MEDS: Rivaroxaban 15 MG TAB PO SCH (09:31)
[2017-07-15] MEDS: guaiFENesin ER 600 MG TAB PO SCH ×2 (09:31→21:05)
--- NOTE | 2017-07-15 10:29 | EKG ---
Test Reason : Blood Pressure : / mmHG Vent. Rate : 119 BPM Atrial Rate : 122 BPM P-R Int : 000 ms QRS Dur : 070 ms QT Int : 298 ms P-R-T Axes : 000 116 232 degrees QTc Int : 419 ms Atrial fibrillation with rapid ventricular response with premature ventricular or aberrantly conducte d complexes Right axis deviation Abnormal ECG When compared with ECG of 29-JUN-2017 11:03, (Unconfirmed) QRS duration has decreased Confirmed by DR. Mika ESPINO ([id number]) on 07/15/2017 10:29:12 AM Referred By: SHITAL Confirmed By:DR. Mika ESPINO
[2017-07-15] MEDS: HumaLOG 300 UNITS/3 ML VIAL SC PRN ×3 (12:40→21:17)
[2017-07-15] MEDS: ALPRAZolam 0.5 MG TAB PO PRN ×2 (13:32→23:16)
[2017-07-15] MEDS ORDERED: Furosemide 40 MG/4 ML VIAL SLOW IVP SCH (14:30)
[2017-07-15] MEDS: Albumin 25% 25 GM/100 ML BOT IVPB SCH ×2 (15:55→21:04)
--- NOTE | 2017-07-15 16:59 | PRG ---
DATE OF SERVICE: 07/15/2017 The patient was seen and examined today complaining of skin pain emanating from blood transfusion quentin ction rashes compounded by possibly hypervolemia. PHYSICAL EXAMINATION: VITAL SIGNS: Afebrile with temperature 97.6, pulse 120-135, respiratory rate 20, O2 sat 100% on 2 li ters with a blood pressure 140/67. HEENT: Unremarkable with moist oral mucosa. No conjunctival injection or icterus. NECK: Supple. CARDIOVASCULAR SYSTEM: First and second heart sounds were heard. Tachycardic. RESPIRATORY SYSTEM: Clear to auscultation bilaterally. DIGESTIVE SYSTEM: Revealed obese abdomen with positive bowel sounds. EXTREMITIES: Showed 3+ lower extremity edema. LYMPHATICS: No peripheral lymphadenopathy. LABORATORY INVESTIGATION: Showed a creatinine of 2.24 with BUN of 50, magnesium 1.4. IMPRESSION: 1. Acute on chronic kidney disease. 2. Hypervolemia with approximately 40 pounds of extra fluid weight. 3. Labile hemodynamics. 4. Blood transfusion reaction induced skin rashes. PLAN: 1. The patient needs to diurese. Given the labile hemodynamics of this patient, we will initiate di uresis in conjunction with albumin supplementation. 2. Discontinue IV Cipro and switch over to p.o. Cipro for 2 more days. 3. If the patient does not respond to medical diuresis, the only option left for this patient to add ress this significant 14-pound hypervolemia will be renal replacement therapy (hemodialysis). 4. Further management to be dependent on the clinical course.
--- NOTE | 2017-07-15 17:33 | PDOC.PN ---
- Subjective Encounter Start Date: 07/15/17 Encounter Start Time: 17:25 Subjective: f/u for multiple medical issues including FREYA/CKD initially requiring HD -: d/c'd with stabilizing renal function. Now volume overloaded, dyspneic -: and A-fib with variable rate. Remains weak and deconditioned. - Objective Resuscitation Status: Resuscitation Status FULL:Full Resuscitation MAR Reviewed: Yes Vital Signs & Weight: Vital Signs (12 hours) Temp Pulse Pulse Pulse Resp BP BP 07/15/17 16:48 97.3 F L 105 H 16 07/15/17 13:57 118 H 16 07/15/17 11:39 97.6 F 135 H 20 07/15/17 11:08 128 H 106 H 140/67 104/60 07/15/17 09:30 120 H 07/15/17 08:15 116 H 16 07/15/17 08:08 07/15/17 08:05 113 H 16 07/15/17 07:36 97.1 F L 120 H 16 BP BP Pulse Ox Pulse Ox Pulse Ox 07/15/17 16:48 110/57 L 94 L 07/15/17 13:57 07/15/17 11:39 111/72 100 07/15/17 11:08 98 98 07/15/17 09:30 07/15/17 08:15 07/15/17 08:08 100 07/15/17 08:05 07/15/17 07:36 104/61 99 Weight Admit Weight 155 lb 3.287 oz Weight 169 lb 14.4 oz Most Recent Monitor Data Heart Rate from ECG 111 NIBP 105/58 NIBP BP-Mean 79 Respiration from ECG 18 SpO2 99 I&O: 07/14/17 07/15/17 07/16/17 06:59 06:59 06:59 Intake Total 750 Output Total 200 Balance 550 Result Diagrams: 07/14/17 05:09 07/15/17 03:30 Additional Labs: Accuchecks 07/15/17 07/15/17 07/15/17 16:47 10:42 05:50 POC Glucose 393 H 354 H 205 H Radiology Reviewed by me: Yes (PCXR - no overt edema, chronic changes) EKG Reviewed by me: Yes (Tele - A-fib in 110's) Phys Exam - Physical Examination Constitutional: NAD HEENT: PERRLA, oral pharynx no lesions Neck: no JVD, supple Respiratory: no wheezing tachycardic Cardiovascular: irregular Gastrointestinal: soft, non-tender, no distention, positive bowel sounds Musculoskeletal: pulses present, edema present Neurological: normal sensation, moves all 4 limbs Skin: normal turgor, cap refill <2 seconds Dx/Plan (1) Hypotension Status: Acute Comment: Iatrogenic due to Lasix, Albumin infusion today, s/p 1u PRBC's, Hgb 8.8, serial H/H, re-submit Urine/Blood/Stool cx, monitor for evidence of sepsis, improved overall (2) Acute renal failure Status: Acute Comment: initiated on HD, renal function improving, follow trend , avoid nephrotoxic meds and contrast media, hypervolemia persisting after HD discontinued, Albumin/Lasix for fluid control, may need HD restarted(weight up 12-13#) (3) Anxiety Code(s): F41.9 - ANXIETY DISORDER, UNSPECIFIED Status: Chronic Comment: stable (4) Pulmonary HTN Code(s): I27.20 - PULMONARY HYPERTENSION, UNSPECIFIED Status: Chronic Comment: Severe, continue Tadalifil (5) Hyperkalemia Code(s): E87.5 - HYPERKALEMIA Status: Resolved (6) Metabolic acidosis Code(s): E87.2 - ACIDOSIS Status: Resolved (7) Sepsis Code(s): A41.9 - SEPSIS, UNSPECIFIED ORGANISM Status: Resolved Qualifiers: Sepsis type: sepsis due to unspecified organism Qualified Code(s): A41.9 - Sepsis, unspecified organism Comment: Resolved, ? recurrence with tachycardia, elevating WBC, lewis culture today, empiric Cipro (8) UTI (urinary tract infection) Status: Resolved Qualifiers: Urinary tract infection type: acute cystitis Hematuria presence: without hematuria Qualified Code(s): N30.00 - Acute cystitis without hematuria Comment: Appears clinically candiduria, continue Fluconazole (9) Diabetes mellitus type II, uncontrolled Code(s): E11.65 - TYPE 2 DIABETES MELLITUS WITH HYPERGLYCEMIA Status: Chronic Comment: labile, holding Metformin and Amaryl, ISS, continue Levemir (10) Acute blood loss anemia Code(s): D62 - ACUTE POSTHEMORRHAGIC ANEMIA Status: Acute Comment: Consider PRBC's if trend remains low, no current active loss noted (11) Candiduria Code(s): B37.49 - OTHER UROGENITAL CANDIDIASIS Status: Acute Comment: See above - Plan plan discussed w/ family, continue antibiotics, PT/OT, director of social media marketing, out of bed/ambulate Stable overall -: Albumin infusion with Lasix for diuresis -: Appreciate Nephrology assistance -: Hydrocortisone crm for generalized rash -: Continue Fluconazole 100mg daily * AM lab: BMP
--- NOTE | 2017-07-15 17:52 | PRG ---
DATE OF SERVICE: 07/15/2017 SUBJECTIVE: Ms. Samson today is complaining of edema. No chest pain or pressure noted. Creatinine appears to stabilize as 2.24 with GFR of 22. She has received 1 unit of packed red blood cells. Thi s occurred after bleeding from dialysis site. OBJECTIVE: VITAL SIGNS: Blood pressure 110/57, pulse 105, respirations 20. LUNGS: Clear to auscultation. HEART: Regular rate and rhythm. ABDOMEN: Soft, nontender, and nondistended. EXTREMITIES: 2+ pitting edema. IMPRESSION: 1. Anemia. 2. Acute on chronic kidney disease. 3. Severe pulmonary hypertension. 4. Chronic atrial fibrillation. RECOMMENDATIONS: Her LVEF on recent echo appeared normal. She did have RV pressure overload based o n RV size. The patient had also had mildly enlarged right atrium. Her right ventricular systolic pr essure was estimated at 36 mmHg. At this point, she may benefit from Lasix although may not be relia ble given her current renal function. Her last dialysis was one week ago. We leave the discretion t o Dr. Whelan. She was concerned about tachycardia and may benefit from low dose beta francisco the rapy. We discuss in a.m.
[2017-07-15] MEDS: hydrOXYzine 25 MG TAB PO SCH ×2 (17:58→23:16)
[2017-07-15] MEDS: Insulin Detemir 100 UNITS/ML 30 UNITS in Pre-Filled Syringe 1 EACH SC SCH (21:01)
[2017-07-15] MEDS: Hydrocortisone 1% Cream 30 GM TUBE TOP SCH (21:03)
[2017-07-15] MEDS: Cipro 250 MG TAB PO SCH (21:04)
[2017-07-15] MEDS: Atorvastatin Calcium 10 MG TAB PO SCH (21:05)
[2017-07-15] MEDS: TADALAFIL 20 MG PO SCH (21:06)
[2017-07-15] MEDS: MACITENTAN 10 MG PO SCH (21:06)
[2017-07-15] MEDS: Gabapentin 100 MG CAP PO SCH (21:09)
[2017-07-16] MEDS: Albumin 25% 25 GM/100 ML BOT IVPB SCH ×4 (04:57→20:28)
[2017-07-16] MEDS: Cipro 250 MG TAB PO SCH ×2 (05:01→20:36)
[2017-07-16] MEDS: hydrOXYzine 25 MG TAB PO SCH ×4 (05:01→23:08)
[2017-07-16] MEDS: Furosemide 40 MG/4 ML VIAL SLOW IVP SCH ×2 (05:02→14:51)
[2017-07-16 06:06] LABS: Anion Gap 20 mmol/L (10-20); BUN (Urea Nitrogen) 55 mg/dL (9.8-20.1); BUN/Creatinine Ratio 22.54; Calc. Creatinine Clearance 25 mL/min (70-130); Calcium 9.2 mg/dL (7.8-10.44); Carbon Dioxide 19 mmol/L (23-31); Chloride 101 mmol/L (98-107); Estimated GFR-MDRD 20; Glucose 349 mg/dL (83-110); Phosphorus 4.5 mg/dL (2.3-4.7); Potassium 4.2 mmol/L (3.5-5.1); Sodium 136 mmol/L (136-145)
--- NOTE | 2017-07-16 07:40 | PRG ---
DATE OF SERVICE: 07/16/2017 The patient was seen and examined with no new complaint. PHYSICAL EXAMINATION: VITAL SIGNS: Afebrile with temperature 97.2, pulse 124, respiratory rate 27, O2 sat of 100% on 2 lit ers with a blood pressure 101/55. HEENT: Unremarkable with moist oral mucosa. Neck is supple. No conjunctival injection or icterus. CARDIOVASCULAR SYSTEM: First and second heart sounds were heard, tachycardic. RESPIRATORY SYSTEM: Clear to auscultation anteriorly. DIGESTIVE SYSTEM: Revealed an obese abdomen. EXTREMITIES: Showed peripheral edema about 2+. SKIN: Showed erythematous rashes, especially in the upper extremities. LABORATORY INVESTIGATIONS: Show a creatinine of 2.44, BUN of 55, blood sugar of 349. Weight loss ov ernight about 5 pounds approximately. IMPRESSION: 1. Acute on chronic kidney disease which seems to be labile, undergoing diuresis. 2. Hyperglycemia/poorly controlled diabetes. 3. Hypervolemia responding to diuretics. The patient seems to have lost about 5 pounds overnight. 4. Tachyarrhythmia, query cause. Would defer to Cardiology. PLAN: 1. The patient to continue with diuresed. 2. Improve blood sugar control. 3. We will continue albumin with diuretics. 4. If the patient does not respond well to continued medical diuresis, this might become any indica tion to ultrafiltrate using hemodialysis. Hopefully, we will be able to avoid this. 5. Further management to be dependent on the clinical course.
[2017-07-16] MEDS: Mometasone/Formoterol 120 PUFF INHALER INH SCH ×2 (07:53→18:42)
[2017-07-16 08:30] VITALS: BMI 32.1
[2017-07-16] MEDS: Insulin Detemir 100 UNITS/ML 15 UNITS in Pre-Filled Syringe 1 EACH SC SCH (08:32)
[2017-07-16] MEDS: guaiFENesin ER 600 MG TAB PO SCH ×2 (08:35→20:29)
[2017-07-16] MEDS: Rivaroxaban 15 MG TAB PO SCH (08:35)
[2017-07-16] MEDS: Digoxin 0.125 MG TAB PO SCH (08:35)
[2017-07-16] MEDS: Fluconazole 100 MG TAB PO SCH (08:36)
[2017-07-16] MEDS: HumaLOG 300 UNITS/3 ML VIAL SC PRN ×2 (08:36→12:29)
[2017-07-16] MEDS: Hydrocortisone 1% Cream 30 GM TUBE TOP SCH ×2 (08:38→20:31)
--- NOTE | 2017-07-16 12:33 | PDOC.PN ---
- Subjective Encounter Start Date: 07/16/17 Encounter Start Time: 12:31 Patient seen and examined. No new complaints. No overnight events. feels good BP better. - Objective Resuscitation Status: Resuscitation Status FULL:Full Resuscitation Vital Signs & Weight: Vital Signs (12 hours) Temp Pulse Resp BP BP Pulse Ox 07/16/17 11:32 117 H 16 07/16/17 08:35 120 H 07/16/17 08:00 97.4 F L 120 H 20 132/70 98 07/16/17 07:53 113 H 16 07/16/17 07:46 93 L 07/16/17 07:43 113 H 16 07/16/17 04:00 97.2 F L 124 H 27 H 101/55 L 100 Weight Admit Weight 155 lb 3.287 oz Weight 164 lb 8 oz Most Recent Monitor Data Heart Rate from ECG 111 NIBP 105/58 NIBP BP-Mean 79 Respiration from ECG 18 SpO2 99 I&O: 07/15/17 07/16/17 07/17/17 06:59 06:59 06:59 Intake Total 524 Output Total 700 Balance -176 Result Diagrams: 07/14/17 05:09 07/16/17 04:33 Additional Labs: Accuchecks 07/16/17 07/16/17 07/15/17 11:04 06:02 20:13 POC Glucose 303 H 324 H 361 H 07/15/17 16:47 POC Glucose 393 H Phys Exam - Physical Examination Constitutional: NAD HEENT: sclera anicteric Neck: supple Respiratory: no wheezing s1s2 heard Gastrointestinal: soft Musculoskeletal: no edema Neurological: non-focal Psychiatric: normal affect Dx/Plan (1) Acute renal failure Status: Acute Comment: initiated on HD, renal function improving, follow trend , avoid nephrotoxic meds and contrast media, hypervolemia persisting after HD discontinued, Albumin/Lasix for fluid control, may need HD restarted(weight up 12-13#) (2) Hypotension Status: Acute Comment: Iatrogenic due to Lasix, Albumin infusion today, s/p 1u PRBC's, Hgb 8.8, serial H/H, re-submit Urine/Blood/Stool cx, monitor for evidence of sepsis, improved overall (3) Sepsis Code(s): A41.9 - SEPSIS, UNSPECIFIED ORGANISM Status: Acute (4) Diabetes mellitus type II, uncontrolled Code(s): E11.65 - TYPE 2 DIABETES MELLITUS WITH HYPERGLYCEMIA Status: Chronic Comment: labile, holding Metformin and Amaryl, ISS, continue Levemir (5) Pulmonary HTN Code(s): I27.20 - PULMONARY HYPERTENSION, UNSPECIFIED Status: Chronic Comment: Severe, continue Tadalifil (6) Metabolic acidosis Code(s): E87.2 - ACIDOSIS Status: Resolved (7) Sepsis Code(s): A41.9 - SEPSIS, UNSPECIFIED ORGANISM Status: Resolved Qualifiers: Sepsis type: sepsis due to unspecified organism Qualified Code(s): A41.9 - Sepsis, unspecified organism Comment: Resolved, ? recurrence with tachycardia, elevating WBC, lewis culture today, empiric Cipro (8) Atrial fibrillation Code(s): I48.91 - UNSPECIFIED ATRIAL FIBRILLATION Status: Chronic Qualifiers: Atrial fibrillation type: chronic Qualified Code(s): I48.2 - Chronic atrial fibrillation (9) CAD (coronary artery disease) Code(s): I25.10 - ATHSCL HEART DISEASE OF [place] CORONARY ARTERY W/O ANG PCTRS Status: Chronic Qualifiers: Coronary Disease-Associated Artery/Lesion type: [place] artery [place] vs. transplanted heart: [place] heart Associated angina: without angina Qualified Code(s): I25.10 - Atherosclerotic heart disease of [place] coronary artery without angina pectoris - Plan cont current plan of care * . f/u with cardio and nephro. AM labs.
[2017-07-16] MEDS: Atorvastatin Calcium 10 MG TAB PO SCH (20:29)
[2017-07-16] MEDS: Gabapentin 100 MG CAP PO SCH (20:29)
[2017-07-16] MEDS: Insulin Detemir 100 UNITS/ML 30 UNITS in Pre-Filled Syringe 1 EACH SC SCH (20:30)
[2017-07-16] MEDS: MACITENTAN 10 MG PO SCH (20:31)
[2017-07-16] MEDS: TADALAFIL 20 MG PO SCH (20:31)
[2017-07-16] MEDS: Acetaminophen 325 MG TAB PO PRN (23:08)
[2017-07-17] MEDS: Albumin 25% 25 GM/100 ML BOT IVPB SCH ×3 (04:34→14:20)
[2017-07-17 05:24] LABS: Albumin 4.5 g/dL (3.4-4.8); Anion Gap 17 mmol/L (10-20); BUN (Urea Nitrogen) 53 mg/dL (9.8-20.1); BUN/Creatinine Ratio 23.25; Calc. Creatinine Clearance 26 mL/min (70-130); Calcium 9.4 mg/dL (7.8-10.44); Carbon Dioxide 22 mmol/L (23-31); Chloride 103 mmol/L (98-107); Estimated GFR-MDRD 21; Glucose 147 mg/dL (83-110); Phosphorus 4.2 mg/dL (2.3-4.7); Potassium 4.1 mmol/L (3.5-5.1); Sodium 138 mmol/L (136-145)
[2017-07-17] MEDS: Furosemide 40 MG/4 ML VIAL SLOW IVP SCH ×2 (05:29→14:00)
[2017-07-17] MEDS: Cipro 250 MG TAB PO SCH ×2 (05:29→20:09)
[2017-07-17] MEDS: hydrOXYzine 25 MG TAB PO SCH ×3 (05:29→17:58)
[2017-07-17 06:32] LABS: Hemoglobin 7.7 g/dL (12.0-16.0); Mean Corpuscular HGB CONC 31.5 g/dL (32.0-36.0); Mean Corpuscular Volume 92.1 fl (81.0-99.0); Mean Platelet Volume 8.4 fL (7.4-10.4); Platelet Count 237 thou/uL (130-400); RBC Distribution Width 15.2 % (11.5-14.5); Red Blood Cell (RBC) Count 2.66 mill/uL (4.20-5.40); White Blood Cell (WBC) Count 17.3 thou/uL (4.8-10.8)
[2017-07-17] MEDS: Mometasone/Formoterol 120 PUFF INHALER INH SCH ×2 (07:15→18:33)
[2017-07-17 07:32] LABS: Band 13 % (5-11); Hypochromia SLIGHT = 6-15 cells (100X) (0-5/hpf); Lymphocytes 12 % (21-51); MDiff Complete? YES; Monocytes 7 % (0-10); Neutrophil 68 % (42-75); PLT Morphology Comment Appears Adequate; Polychromasia MODERATE = 3-4 cells (100X) (0-2/hpf)
--- NOTE | 2017-07-17 07:56 | PDOC.PN ---
- Subjective Encounter Start Date: 07/17/17 Encounter Start Time: 07:54 Subjective: Seen and examined with no new complaint - Objective Resuscitation Status: Resuscitation Status FULL:Full Resuscitation Vital Signs & Weight: Vital Signs (12 hours) Temp Pulse Resp BP BP Pulse Ox 07/17/17 07:15 120 H 18 07/17/17 03:42 98.5 F 118 H 20 116/60 98 07/17/17 00:00 98.0 F 128 H 24 H 143/67 H 07/16/17 22:35 132 H 20 94 L 07/16/17 20:00 98.1 F 125 H 22 H 117/69 100 Weight Admit Weight 155 lb 3.287 oz Weight 160 lb 6.4 oz Most Recent Monitor Data Heart Rate from ECG 111 NIBP 105/58 NIBP BP-Mean 79 Respiration from ECG 18 SpO2 99 I&O: 07/16/17 07/17/17 07/18/17 06:59 06:59 06:59 Intake Total 2118 Output Total 1800 Balance 318 Result Diagrams: 07/17/17 04:53 07/17/17 04:53 Additional Labs: Accuchecks 07/16/17 07/16/17 07/16/17 20:32 16:59 11:04 POC Glucose 211 H 159 H 303 H Phys Exam - Physical Examination Constitutional: NAD HEENT: PERRLA, moist MMs, sclera anicteric, TM's clear Neck: no nodes, no JVD, supple, full ROM Respiratory: no wheezing, no rales, no rhonchi Cardiovascular: no significant murmur, irregular Gastrointestinal: soft, non-tender, no distention, positive bowel sounds Musculoskeletal: pulses present, edema present Dx/Plan (1) Acute blood loss anemia Code(s): D62 - ACUTE POSTHEMORRHAGIC ANEMIA Status: Acute Comment: Consider PRBC's if trend remains low, no current active loss noted (2) Acute renal failure Status: Acute Comment: initiated on HD, renal function improving, follow trend , avoid nephrotoxic meds and contrast media, hypervolemia persisting after HD discontinued, Albumin/Lasix for fluid control, may need HD restarted(weight up 12-13#) (3) Hypotension Status: Acute Comment: Iatrogenic due to Lasix, Albumin infusion today, s/p 1u PRBC's, Hgb 8.8, serial H/H, re-submit Urine/Blood/Stool cx, monitor for evidence of sepsis, improved overall (4) Anxiety Code(s): F41.9 - ANXIETY DISORDER, UNSPECIFIED Status: Chronic Comment: stable (5) Diabetes mellitus type II, uncontrolled Code(s): E11.65 - TYPE 2 DIABETES MELLITUS WITH HYPERGLYCEMIA Status: Chronic Comment: labile, holding Metformin and Amaryl, ISS, continue Levemir (6) Pulmonary HTN Code(s): I27.20 - PULMONARY HYPERTENSION, UNSPECIFIED Status: Chronic Comment: Severe, continue Tadalifil (7) Hypovolemic shock Code(s): R57.1 - HYPOVOLEMIC SHOCK Status: Resolved (8) UTI (urinary tract infection) Status: Resolved Qualifiers: Urinary tract infection type: acute cystitis Hematuria presence: without hematuria Qualified Code(s): N30.00 - Acute cystitis without hematuria Comment: Appears clinically candiduria, continue Fluconazole (9) Atrial fibrillation Code(s): I48.91 - UNSPECIFIED ATRIAL FIBRILLATION Status: Chronic Qualifiers: Atrial fibrillation type: chronic Qualified Code(s): I48.2 - Chronic atrial fibrillation (10) Transfusion reaction Code(s): T80.92XA - UNSPECIFIED TRANSFUSION REACTION, INITIAL ENCOUNTER Status : Acute (11) Sepsis Code(s): A41.9 - SEPSIS, UNSPECIFIED ORGANISM Status: Acute - Plan plan discussed w/ family, continue antibiotics, PT/OT, social service technician, respiratory therapy will need to augment loop diuretics today -: Continue with medical diuresis -: Dispo planning * .
[2017-07-17] MEDS ORDERED: Metolazone 5 MG TAB PO SCH (08:00)
[2017-07-17] MEDS: Hydrocortisone 1% Cream 30 GM TUBE TOP SCH ×2 (08:20→20:09)
[2017-07-17] MEDS: guaiFENesin ER 600 MG TAB PO SCH ×2 (08:20→20:09)
[2017-07-17] MEDS: Digoxin 0.125 MG TAB PO SCH (08:20)
[2017-07-17] MEDS: Insulin Detemir 100 UNITS/ML 15 UNITS in Pre-Filled Syringe 1 EACH SC SCH (08:21)
[2017-07-17] MEDS: Rivaroxaban 15 MG TAB PO SCH (08:22)
[2017-07-17] MEDS: Atorvastatin Calcium 10 MG TAB PO SCH (20:09)
[2017-07-17] MEDS: Gabapentin 100 MG CAP PO SCH (20:09)
[2017-07-17] MEDS: Insulin Detemir 100 UNITS/ML 30 UNITS in Pre-Filled Syringe 1 EACH SC SCH (20:10)
[2017-07-17] MEDS: MACITENTAN 10 MG PO SCH (20:11)
[2017-07-17] MEDS: TADALAFIL 20 MG PO SCH (20:11)
[2017-07-18] MEDS ORDERED: Carvedilol 3.125 MG TAB PO SCH (00:45)
[2017-07-18] MEDS: ALPRAZolam 0.5 MG TAB PO PRN ×2 (00:46→22:43)
[2017-07-18] MEDS: hydrOXYzine 25 MG TAB PO SCH ×5 (00:47→22:43)
[2017-07-18 05:59] LABS: Albumin 4.6 g/dL (3.4-4.8); Anion Gap 18 mmol/L (10-20); BUN (Urea Nitrogen) 57 mg/dL (9.8-20.1); Calc. Creatinine Clearance 23 mL/min (70-130); Calcium 9.9 mg/dL (7.8-10.44); Carbon Dioxide 23 mmol/L (23-31); Chloride 104 mmol/L (98-107); Estimated GFR-MDRD 19; Glucose 114 mg/dL (83-110); Phosphorus 4.4 mg/dL (2.3-4.7); Sodium 141 mmol/L (136-145)
[2017-07-18] MEDS: Furosemide 40 MG/4 ML VIAL SLOW IVP SCH ×2 (06:00→14:57)
[2017-07-18] MEDS: Cipro 250 MG TAB PO SCH (06:00)
[2017-07-18] MEDS: Acetaminophen 325 MG TAB PO PRN ×3 (09:03→17:57)
[2017-07-18] MEDS: guaiFENesin ER 600 MG TAB PO SCH ×2 (09:04→20:41)
[2017-07-18] MEDS: Digoxin 0.125 MG TAB PO SCH (09:04)
[2017-07-18] MEDS: Metolazone 5 MG TAB PO SCH (09:05)
[2017-07-18] MEDS: Rivaroxaban 15 MG TAB PO SCH (09:05)
[2017-07-18] MEDS: Carvedilol 3.125 MG TAB PO SCH ×2 (09:05→20:41)
[2017-07-18] MEDS: Hydrocortisone 1% Cream 30 GM TUBE TOP SCH ×2 (09:05→20:42)
[2017-07-18] MEDS: Insulin Detemir 100 UNITS/ML 15 UNITS in Pre-Filled Syringe 1 EACH SC SCH (10:07)
[2017-07-18] MEDS: Mometasone/Formoterol 120 PUFF INHALER INH SCH ×2 (10:28→19:32)
--- NOTE | 2017-07-18 17:46 | PRG ---
DATE OF SERVICE: 05/18/2017 SUBJECTIVE: Ms. Samson is resting in bed, no complaints. OBJECTIVE: VITAL SIGNS: Blood pressure 111/56; pulse is 90, is irregular, is atrial fibrillation. LUNGS: Clear. CARDIAC: Irregularly irregular. ABDOMEN: Soft, nontender. EXTREMITIES: There is moderate edema as before. SKIN: There is diffuse rash to red throughout most of her extremities and she has peeling of the ski n of her face. The echocardiogram showed the ejection fraction is normal. She has markedly enlarged left and right atrium, markedly enlarged right ventricle. The pulmonary artery pressure is elevated, but it is diff icult to say how high, it is at least mid 50s, but may be higher. ASSESSMENT: 1. Diastolic heart failure. 2. Severe pulmonary hypertension, longstanding. 3. Aortic stenosis, thought to be moderate. Apparently, Dr. Cano did a cardiac catheterization, o nly mild on the catheterization. 4. Mild coronary artery disease. 5. Rash of uncertain etiology. PLAN: I have reviewed medication. She has been on digoxin for many years. She is on furosemide [facility] does have SULFA as do most of the diuretics, previously on torsemide as an outpatient which also c ontains SULFA. The patient tells me that someone else has been called in about a rash.
[2017-07-18] MEDS: HumaLOG 300 UNITS/3 ML VIAL SC PRN (17:57)
--- NOTE | 2017-07-18 17:57 | PDOC.PN ---
- Subjective Encounter Start Date: 07/18/17 Encounter Start Time: 17:56 Subjective: seen and examined feeling worse with the rash/weeping legs - Objective Resuscitation Status: Resuscitation Status FULL:Full Resuscitation Vital Signs & Weight: Vital Signs (12 hours) Temp Pulse Resp BP BP Pulse Ox 07/18/17 15:35 97.6 F 96 23 H 111/56 L 99 07/18/17 15:22 99 18 07/18/17 11:10 97.7 F 93 21 H 92/52 L 100 07/18/17 10:29 107 H 18 88 L 07/18/17 09:04 104 H 07/18/17 08:56 97.6 F 104 H 20 96/52 L 96 Weight Admit Weight 155 lb 3.287 oz Weight 158 lb 12.8 oz Most Recent Monitor Data Heart Rate from ECG 111 NIBP 105/58 NIBP BP-Mean 79 Respiration from ECG 18 SpO2 99 I&O: 07/17/17 07/18/17 07/19/17 06:59 06:59 06:59 Intake Total 2118 980 Output Total 1800 1200 400 Balance 318 -220 -400 Result Diagrams: 07/17/17 04:53 07/18/17 04:56 Additional Labs: Accuchecks 07/18/17 07/18/17 07/18/17 16:49 11:07 06:10 POC Glucose 207 H 138 H 120 H 07/17/17 20:11 POC Glucose 197 H Phys Exam - Physical Examination Constitutional: NAD HEENT: PERRLA, moist MMs, sclera anicteric, TM's clear Neck: no nodes, no JVD, supple, full ROM Respiratory: no wheezing, no rales, no rhonchi, clear to auscultation bilateral Cardiovascular: RRR, no rub Gastrointestinal: soft, non-tender, positive bowel sounds Musculoskeletal: edema present Neurological: normal sensation, moves all 4 limbs Deviation from normal: diffuse erythematous rash Dx/Plan (1) Acute blood loss anemia Code(s): D62 - ACUTE POSTHEMORRHAGIC ANEMIA Status: Acute Comment: Consider PRBC's if trend remains low, no current active loss noted (2) Acute renal failure Status: Acute Comment: initiated on HD, renal function improving, follow trend , avoid nephrotoxic meds and contrast media, hypervolemia persisting after HD discontinued, Albumin/Lasix for fluid control, may need HD restarted(weight up 12-13#) (3) Hypotension Status: Acute Comment: Iatrogenic due to Lasix, Albumin infusion today, s/p 1u PRBC's, Hgb 8.8, serial H/H, re-submit Urine/Blood/Stool cx, monitor for evidence of sepsis, improved overall (4) Anxiety Code(s): F41.9 - ANXIETY DISORDER, UNSPECIFIED Status: Chronic Comment: stable (5) Diabetes mellitus type II, uncontrolled Code(s): E11.65 - TYPE 2 DIABETES MELLITUS WITH HYPERGLYCEMIA Status: Chronic Comment: labile, holding Metformin and Amaryl, ISS, continue Levemir (6) Pulmonary HTN Code(s): I27.20 - PULMONARY HYPERTENSION, UNSPECIFIED Status: Chronic Comment: Severe, continue Tadalifil (7) Hypovolemic shock Code(s): R57.1 - HYPOVOLEMIC SHOCK Status: Resolved (8) UTI (urinary tract infection) Status: Resolved Qualifiers: Urinary tract infection type: acute cystitis Hematuria presence: without hematuria Qualified Code(s): N30.00 - Acute cystitis without hematuria Comment: Appears clinically candiduria, continue Fluconazole (9) Atrial fibrillation Code(s): I48.91 - UNSPECIFIED ATRIAL FIBRILLATION Status: Chronic Qualifiers: Atrial fibrillation type: chronic Qualified Code(s): I48.2 - Chronic atrial fibrillation (10) Transfusion reaction Code(s): T80.92XA - UNSPECIFIED TRANSFUSION REACTION, INITIAL ENCOUNTER Status : Acute (11) Sepsis Code(s): A41.9 - SEPSIS, UNSPECIFIED ORGANISM Status: Acute - Plan plan discussed w/ family, continue antibiotics, PT/OT, social work faculty member Appreciate cardiology input -: Diuresis---hold lasix due to sulfur allergy concerns -: Hopefully will be able to avoid dialysis -: Remove unnecessary meds -: Consider [employer] consult for blood reaction/rashes * .
[2017-07-18] MEDS: TADALAFIL 20 MG PO SCH (20:35)
[2017-07-18] MEDS: MACITENTAN 10 MG PO SCH (20:38)
[2017-07-18] MEDS: Gabapentin 100 MG CAP PO SCH (20:41)
[2017-07-18] MEDS: Atorvastatin Calcium 10 MG TAB PO SCH (20:41)
[2017-07-18] MEDS: Insulin Detemir 100 UNITS/ML 30 UNITS in Pre-Filled Syringe 1 EACH SC SCH ×2 (20:43→22:46)
[2017-07-19 05:30] LABS: Hemoglobin 7.8 g/dL (12.0-16.0); Platelet Count 222 thou/uL (130-400)
[2017-07-19 05:34] LABS: Digoxin 1.84 ng/mL (0.8-2.0)
[2017-07-19] MEDS: hydrOXYzine 25 MG TAB PO SCH ×3 (05:47→17:14)
[2017-07-19] MEDS: Mometasone/Formoterol 120 PUFF INHALER INH SCH ×2 (07:35→19:39)
[2017-07-19] MEDS: Digoxin 0.125 MG TAB PO SCH (09:02)
[2017-07-19] MEDS: guaiFENesin ER 600 MG TAB PO SCH (09:02)
[2017-07-19] MEDS: Rivaroxaban 15 MG TAB PO SCH (09:02)
[2017-07-19] MEDS: Carvedilol 3.125 MG TAB PO SCH (09:03)
[2017-07-19] MEDS: Metolazone 5 MG TAB PO SCH (09:03)
[2017-07-19] MEDS: Insulin Detemir 100 UNITS/ML 15 UNITS in Pre-Filled Syringe 1 EACH SC SCH (09:03)
[2017-07-19] MEDS: HumaLOG 300 UNITS/3 ML VIAL SC PRN ×2 (09:03→12:17)
[2017-07-19] MEDS: Hydrocortisone 1% Cream 30 GM TUBE TOP SCH (09:04)
--- NOTE | 2017-07-19 10:00 | EKG ---
Test Reason : Blood Pressure : / mmHG Vent. Rate : 097 BPM Atrial Rate : 115 BPM P-R Int : 000 ms QRS Dur : 098 ms QT Int : 344 ms P-R-T Axes : 000 122 249 degrees QTc Int : 436 ms Atrial fibrillation Right axis deviation Abnormal ECG Confirmed by FABIANO LOWE, BALDEV [place] ([id number]), editorial manager J CARLOS LIVINGSTON ([id number]) on 07/19/2017 10:00:06 AM Referred By: Confirmed By:BALDEV MARIO MD
--- NOTE | 2017-07-19 10:00 | EKG ---
Test Reason : Blood Pressure : / mmHG Vent. Rate : 090 BPM Atrial Rate : 111 BPM P-R Int : 000 ms QRS Dur : 114 ms QT Int : 384 ms P-R-T Axes : 000 126 -27 degrees QTc Int : 469 ms Atrial fibrillation Right axis deviation Nonspecific ST abnormality , probably digitalis effect Abnormal QRS-T angle, consider primary T wave abnormality Abnormal ECG Confirmed by FABIANO OLWE, BALDEV [place] ([id number]), manager editorial J CARLOS LIVINGSTON ([id number]) on 07/19/2017 10:00:05 AM Referred By: Confirmed By:BALDEV MARIO MD
--- NOTE | 2017-07-19 10:47 | PDOC.PN ---
- Subjective Encounter Start Date: 07/19/17 Encounter Start Time: 10:45 Patient seen and examined. No new complaints. No overnight events. at bedside. still weeping edema and peeling. redness allover. No sob or chest pain. - Objective Resuscitation Status: Resuscitation Status FULL:Full Resuscitation MAR Reviewed: Yes Vital Signs & Weight: Vital Signs (12 hours) Temp Pulse Resp BP BP Pulse Ox 07/19/17 09:02 101 H 07/19/17 08:00 97.8 F 101 H 18 113/61 96 07/19/17 07:33 102 H 20 94 L 07/19/17 04:00 96.0 F L 92 20 109/53 L 98 07/18/17 23:04 96.1 F L 100 18 114/63 99 Weight Admit Weight 155 lb 3.287 oz Weight 159 lb 3.2 oz Most Recent Monitor Data Heart Rate from ECG 111 NIBP 105/58 NIBP BP-Mean 79 Respiration from ECG 18 SpO2 99 I&O: 07/18/17 07/19/17 07/20/17 06:59 06:59 06:59 Intake Total 980 1320 Output Total 1200 900 Balance -220 420 Result Diagrams: 07/19/17 05:04 07/18/17 04:56 Additional Labs: Accuchecks 07/19/17 07/18/17 07/18/17 05:54 20:27 16:49 POC Glucose 227 H 169 H 207 H 07/18/17 11:07 POC Glucose 138 H Phys Exam - Physical Examination Constitutional: NAD HEENT: sclera anicteric Neck: supple Respiratory: no wheezing, no rales murmur present Gastrointestinal: soft Musculoskeletal: edema present Neurological: non-focal Deviation from normal: red rash with weeping edema and skin peeling. Dx/Plan (1) Acute renal failure Status: Acute Comment: initiated on HD, renal function improving, follow trend , avoid nephrotoxic meds and contrast media, hypervolemia persisting after HD discontinued, Albumin/Lasix for fluid control, may need HD restarted(weight up 12-13#) (2) Hypotension Status: Acute Comment: Iatrogenic due to Lasix, Albumin infusion today, s/p 1u PRBC's, Hgb 8.8, serial H/H, re-submit Urine/Blood/Stool cx, monitor for evidence of sepsis, improved overall (3) Sepsis Code(s): A41.9 - SEPSIS, UNSPECIFIED ORGANISM Status: Acute (4) Diabetes mellitus type II, uncontrolled Code(s): E11.65 - TYPE 2 DIABETES MELLITUS WITH HYPERGLYCEMIA Status: Chronic Comment: labile, holding Metformin and Amaryl, ISS, continue Levemir (5) Pulmonary HTN Code(s): I27.20 - PULMONARY HYPERTENSION, UNSPECIFIED Status: Chronic Comment: Severe, continue Tadalifil (6) Metabolic acidosis Code(s): E87.2 - ACIDOSIS Status: Resolved (7) Sepsis Code(s): A41.9 - SEPSIS, UNSPECIFIED ORGANISM Status: Resolved Qualifiers: Sepsis type: sepsis due to unspecified organism Qualified Code(s): A41.9 - Sepsis, unspecified organism Comment: Resolved, ? recurrence with tachycardia, elevating WBC, lewis culture today, empiric Cipro (8) Atrial fibrillation Code(s): I48.91 - UNSPECIFIED ATRIAL FIBRILLATION Status: Chronic Qualifiers: Atrial fibrillation type: chronic Qualified Code(s): I48.2 - Chronic atrial fibrillation (9) CAD (coronary artery disease) Code(s): I25.10 - ATHSCL HEART DISEASE OF [place] CORONARY ARTERY W/O ANG PCTRS Status: Chronic Qualifiers: Coronary Disease-Associated Artery/Lesion type: [place] artery [place] vs. transplanted heart: [place] heart Associated angina: without angina Qualified Code(s): I25.10 - Atherosclerotic heart disease of [place] coronary artery without angina pectoris (10) Edema Code(s): R60.9 - EDEMA, UNSPECIFIED Status: Acute (11) Rash Code(s): R21 - RASH AND OTHER NONSPECIFIC SKIN ERUPTION Status: Acute (12) Drug allergy Code(s): Z88.9 - ALLERGY STATUS TO [facility] DRUG/MEDS/BIOL SUBST STATUS Status: Acute - Plan cont current plan of care, plan discussed w/ family * . continue benadryl as tolerated. diuretics on hold due to sulfa allergy. Hem/Onc consult pending for rash and blood transfusion reaction. AM labs. Appreciated renal and cardio input.
[2017-07-19 11:26] VITALS: TEMP 97.7
[2017-07-19] MEDS: diphenhydrAMINE 50 MG/ML VIAL IVP SCH ×2 (11:45→17:14)
[2017-07-19] MEDS: Acetaminophen 325 MG TAB PO PRN (11:45)
[2017-07-19] MEDS ORDERED: HYDROcodone/Acetaminophen 5/325 mg Tablet PO PRN (13:35)
--- NOTE | 2017-07-19 14:03 | CON ---
DATE OF CONSULTATION: 07/19/2017 REASON FOR CONSULTATION: Skin rash. HISTORY OF PRESENT ILLNESS: This is a 72-year-old female who was admitted to the hospital on 06/19/2017 with shortness of breath and abdominal and lower extremity swelling. She was found to be in congestive cardiac failure, atrial fibrillation with rapid ventricular response. At admission, her serum creatinine was 1.46, but gradually her creatinine increased up to 7. She also had hemoglo bin close to normal at admission, she developed progressive anemia. The patient was started on dialy sis and has been transfused packed red blood cells on 07/10/2017. The patient did not have any skin rash before transfusion. However, it seems that after transfusion, the patient developed generalized erythematosus skin rash. Dialysis has been discontinued. The Hematology consultation has been obta ined for possible transfusion related to skin reaction. At the present time, the patient is complain ing of severe cutaneous pain in both lower extremities. She also has developed desquamation of the s kin from several areas. OUTPATIENT MEDICATIONS: Metformin, simvastatin, insulin, Amaryl, potassium, losartan, digoxin, carve dilol, aspirin, torsemide, and Xarelto. PAST MEDICAL HISTORY: Positive for pulmonary hypertension, diastolic heart failure with atrial fibri llation, coronary artery disease status post stenting, mild aortic stenosis, diabetes, hypertension. DRUGS WITH ADVERSE EFFECT: SULFA. REVIEW OF SYSTEMS: As above. PHYSICAL EXAMINATION: GENERAL: The patient appears chronically ill. VITAL SIGNS: The patient has been afebrile in the hospital. Temperature today 97.7, pulse 99, and b lood pressure is 138/72. SKIN: Shows diffuse erythema. There are no purpuric eruptions. The skin has excoriated from severa l areas. The skin is exquisitely tender to palpation probably just to touch especially in the lower extremities. She has 2+ bipedal edema. LYMPH NODES: Not palpable in cervical, axillary or inguinal area. HEART: S1, S2. There is a systolic murmur. ABDOMEN: Soft, without palpable organomegaly. LABORATORY DATA: CBC shows WBC of 17,300 with hemoglobin of 7.7 and platelet count of 237,000. Diff erential shows 68% neutrophils and 13% bands, and 12% lymphocytes. Chemistry profile shows a most re cent creatinine value of 2.50 with BUN of 57. Glucose 114. ASSESSMENT AND RECOMMENDATIONS: There seems to be a temporal relationship between transfusion and th e skin erythema, but I am not sure if it is actually related to transfusion. Dermatology consultatio n would have been very helpful, but I understand it will be difficult to get a pricing specialist to see t he patient as she could be treated with steroids empirically and see if that improves her symptoms an d helps with the skin rashes. If that does not work, it might be useful to consider doing a skin bio psy. However, I think the dermatology consult if at all feasible, it would be quite helpful. Meanwh ile, the patient has started to get anemic again. She could be treated with Procrit 20,000 units onc e a week to see if that improves her hemoglobin, so she does not require another transfusion. Thanks very much for asking me to participate in this patient's care. I will attempt to find her [facility] physician today and talk to him regarding what needs to be done.
[2017-07-19] MEDS ORDERED: Epoetin (NON-ESRD) 20,000 UNITS/ML ML SC SCH (14:30)
[2017-07-19] MEDS ORDERED: Albumin 25% 25 GM/100 ML BOT IVPB SCH (16:00)
[2017-07-19 16:28] VITALS: BP 130/60
--- NOTE | 2017-07-19 16:38 | PRG ---
DATE OF SERVICE: 07/19/2017 SUBJECTIVE: Ms. Samson has developed a severe rash, it is red and at times peeling. There is some concern it could be Cardenas-Karri syndrome. PHYSICAL EXAMINATION: VITAL SIGNS: The patient is sleeping now. She gets some pain medicines. Her pulse is 100. LUNGS: Clear. CARDIAC: Irregular, irregular. ABDOMEN: Soft, nontender. EXTREMITIES: There is severe edema. SKIN: The skin is peeling, it is hard and it is warm. LABORATORY DATA: Creatinine is 2.5. ASSESSMENT: 1. Volume overload. 2. Pulmonary hypertension. 3. Normal left ventricular function. 4. Aortic stenosis, thought to be only mild per patient report, we have not received records from [facility] but that is by report. PLAN: 1. Lasix and all other diuretics have been stopped in case this is a reaction to an addendum to the diuretics, antibiotics have been stopped in case this is a reaction to the antibiotics. 2. She is on reduced dose of Xarelto. 3. I would recommend dialysis to try to remove volume as much as possible. Prognosis is poor. Disc ussed with the patient again.
--- NOTE | 2017-07-20 07:53 | DIS ---
DATE OF ADMISSION: 06/29/2017 DATE OF DISCHARGE: 07/19/2017 DISCHARGE DIAGNOSES: 1. Acute kidney injury needing few sessions of dialysis now resolving. 2. Anemia, status post blood transfusion. 3. Skin rash with differential of Cardenas-Karri syndrome versus drug rash versus blood transfusion reaction. 4. Blood transfusions and type 2 diabetes, insulin requiring. 5. Hypotension. 6. Sepsis, resolving. 7. Pulmonary hypertension. 8. Acidosis. 9. Atrial fibrillation. 10. History of coronary artery disease. 11. Chronic obstructive pulmonary disease. 12. Chronic kidney disease. CONSULTATIONS: Dr. Kinsey from Cardiology, Dr. Whelan from Nephrology, GI consult for Dr. Monzon , Pulmonology, Dr. Edwards and Hematology consult Dr. Tobin. PROCEDURES: Echocardiogram with 55% to 60% ejection fraction severely enlarged right ventricle with PA pressure of 56 mmHg. HOSPITAL COURSE: This is a 72-year-old female who was admitted 20 days back on 06/29/2017 with sever e hypovolemic shock secondary to nausea, vomiting, acute kidney injury and hyperkalemia. She was antoine luated by Nephrology and she had 5 sessions of dialysis and was taken off dialysis on 07/07/2017 with recovery of renal function has been monitored. She was continued to have weeping edema and she was also found to have anemia and had a blood transfusion on 07/10/2017 and since then she has been havin g a rash, which has been treated with slightly moderate improvement, but she continues to have itchin g, peeling and weeping edema and family requested her to be transferred to [place] for higher lev el of care including possible treatment in burn unit for possible Cardenas-Karri syndrome. The jose m ent refused to have prednisone and she was treated with Benadryl, but at the hospital. The patient w as actually having SULFA allergy and she was given Lasix and the drug allergy and skin reaction was t hought to be secondary to sulfamethoxazole and Lasix were held also. CONDITION ON DISCHARGE: Fair. DISPOSITION: To [facility], for higher level of care. DISCHARGE MEDICATIONS: Atorvastatin 10 mg p.o. at bedtime, gabapentin 100 mg p.o. at bedtime, Opsumi t, Tadalafil, Atarax 25 mg q.6 hours. p.r.n., Benadryl 25 IV q.6 hours., Zarelto 15 mg p.o. daily, Pr otonix 40 mg p.o. daily, Levemir 15 q.a.m. and 30 units at bedtime, hydrocortisone cream, [place] 1 tab let q.6 hours p.r.n., digoxin 0.125, Coreg 3.125 p.o. b.i.d., Xanax 0.5 p.o. t.i.d. ALLERGIES: SULFAMETHOXAZOLE and PROMETHAZINE. DISCHARGE FOLLOWUP: [facility] and upon discharge from there follow w [facility] primary care in 1-2 weeks. The patient and family requested transfer to the higher level of care and the patient transfer was ar ranged. I did talk with the Hospitalist there. Some medication list reconciled. Please note that I did spend more than 35 minutes coordinating the discharge care of this patient.
== END 2017-07-19 19:40 | disposition short-term general hospital (02) | DRG 871 ==
LOC: ERS 08:18 → ERHOLD 11:21 → CCU 14:23 → 2NO 07-02 16:04 → T4-B 07-14 21:27 → 2NO 07-15 00:21
PROVIDERS: ADMIT Internal Medicine; ATTEND Internal Medicine
PROC: 06HM33Z Insertion of Infusion Device into Right Femoral Vein, Percutaneous Approach (ICD-10-PCS; principal; 2017-06-29)
PROC: 5A1D70Z Performance of Urinary Filtration, Intermittent, Less than 6 Hours Per Day (ICD-10-PCS; 2017-06-29)
PROC: 30233N1 Transfusion of Nonautologous Red Blood Cells into Peripheral Vein, Percutaneous Approach (ICD-10-PCS; 2017-07-10)
DX: A41.4 Sepsis due to anaerobes (principal); R57.1 Hypovolemic shock; N17.0 Acute kidney failure with tubular necrosis; L51.1 Stevens-Johnson syndrome; R65.21 Severe sepsis with septic shock; E11.65 Type 2 diabetes mellitus with hyperglycemia; D62 Acute posthemorrhagic anemia; I48.2 Chronic atrial fibrillation; E83.39 Other disorders of phosphorus metabolism; B37.49 Other urogenital candidiasis; E87.1 Hypo-osmolality and hyponatremia; E87.2 Acidosis; N30.00 Acute cystitis without hematuria; I50.32 Chronic diastolic (congestive) heart failure; I13.0 Hypertensive heart and chronic kidney disease with heart failure and stage 1 through stage 4 chronic kidney disease, or unspecified chronic kidney disease; E86.0 Dehydration; I27.20 Pulmonary hypertension, unspecified; E87.5 Hyperkalemia; E87.70 Fluid overload, unspecified; J44.9 Chronic obstructive pulmonary disease, unspecified; I35.0 Nonrheumatic aortic (valve) stenosis; D63.1 Anemia in chronic kidney disease; R21 Rash and other nonspecific skin eruption; I25.10 Atherosclerotic heart disease of native coronary artery without angina pectoris; E78.5 Hyperlipidemia, unspecified; F41.9 Anxiety disorder, unspecified; R19.7 Diarrhea, unspecified; R11.2 Nausea with vomiting, unspecified; R19.5 Other fecal abnormalities; Z79.82 Long term (current) use of aspirin; Z99.2 Dependence on renal dialysis; Z79.01 Long term (current) use of anticoagulants; Z95.1 Presence of aortocoronary bypass graft; Z88.1 Allergy status to other antibiotic agents; Z88.2 Allergy status to sulfonamides; Z88.8 Allergy status to other drugs, medicaments and biological substances; Z83.3 Family history of diabetes mellitus; Z82.3 Family history of stroke; Z82.0 Family history of epilepsy and other diseases of the nervous system; Z82.61 Family history of arthritis; L27.0 Generalized skin eruption due to drugs and medicaments taken internally; T37.0X5A Adverse effect of sulfonamides, initial encounter; N18.2 Chronic kidney disease, stage 2 (mild)
CPT/HCPCS: 36415; 36416; 36430; 36556; 51702; 71010; 76770; 80048; 80053; 80069; 80162; 81001; 82010; 82274; 82533; 82553; 82728; 82805; 83540; 83605; 83690; 83735; 84100; 84484; 85007; 85014; 85018; 85025; 85027; 85049; 85610; 85730; 86850; 86900; 86901; 87040; 87045; 87046; 87077; 87086; 87186; 87324; 87340; 87449; 87899; 90935; 93005; 93010; 93306; 93798; 94640; 94660; 94664; 96361; 96365; 96368; 96375; 99292; A4216; A4353; C9113; G0257; G8978-GP-CI; G8978-GP-CJ; G8979-GP-CH; G8979-GP-CI; G8980-GP-CI; J0131; J0696; J0744; J0885; J1160; J1200; J1644; J1720; J1815; J1940; J2405; J2543; J2550; J3370; J7050; J7070; J7611; J7620; P9016; P9047; S0028